=== PATIENT | female | born 1935 | race Hispanic/Latino ===

== ENCOUNTER 2016-12-06 12:29 | Inpatient (IN) | payer MEDICARE ==
[2016-12-06 13:41] LABS: BASO # 0.1 K/uL (0.0-0.2); BASO % 0.7 % (0.0-2.0); EOS % 0.2 % (0.0-4.0); HEMATOCRIT 32.8 % (34.0-47.0); LYMPH # 1.2 K/uL (1.0-4.3); LYMPH % 11.5 % (20.0-40.0); MEAN CORPUSCULAR HEMOGLOBIN 27.8 pg (27.0-31.0); MEAN CORPUSCULAR HGB CONC 33.3 g/dL (33.0-37.0); MEAN PLATELET VOLUME 8.4 fL (7.2-11.7); MONO % 9.3 % (0.0-10.0); RED CELL DISTRIBUTION WIDTH 15.3 % (11.5-14.5); WHITE BLOOD COUNT 10.3 K/uL (4.8-10.8)
[2016-12-06 13:44] LABS: MEAN CELL VOLUME 83.4 fL (81.0-99.0)
--- NOTE | 2016-12-06 13:47 | RAD ---
HISTORY: chest pain COMPARISON: Chest x-ray performed 02/28/14 TECHNIQUE: Chest, one view. FINDINGS: Examination limited by habitus. LUNGS: No focal consolidation. Please note that chest x-ray has limited sensitivity for the detection of pulmonary masses. PLEURA: No significant pleural effusion identified. No definite pneumothorax . CARDIOVASCULAR: Heart size appears top-normal. Atherosclerotic calcifications of the aorta. OSSEOUS STRUCTURES: Degenerative changes. VISUALIZED UPPER ABDOMEN: Unremarkable. OTHER FINDINGS: None. IMPRESSION: No acute findings. See above.
[2016-12-06 13:49] LABS: POTASSIUM 4.3 mmol/L (3.6-5.2)
[2016-12-06 13:50] LABS: INR 1.1
[2016-12-06 13:51] LABS: BILIRUBIN,TOTAL 0.7 mg/dL (0.2-1.3)
[2016-12-06] MEDS ORDERED: Sodium Chloride 0.9% 1,000 ML IV ONE ×2 (13:51→19:35)
[2016-12-06 13:52] LABS: CALCIUM 9.5 mg/dl (8.6-10.4); TOTAL PROTEIN 7.3 g/dL (6.3-8.3)
--- NOTE | 2016-12-06 13:52 | C.PDOC ---
History Of Present Illness 80 year old female presents to the ED by the request of Dr. Redman after having an appointment today revealing A-fib. Patient states she has not been feeling well fo the last week, feeling tired, weak, occasional lightheadedness, and too weak to ambulate. She has been unable to tolerate PO for four days due to nausea and vomiting. Patient was also hypotensive during the visit. She denies any chest pain, SOB, or dizziness currently in the ED. Time Seen by Provider: 12/06/16 13:07 Chief Complaint (Nursing): Palpitations History Per: Patient History/Exam Limitations: no limitations Onset/Duration Of Symptoms: Days (10 days) Current Symptoms Are (Timing): Still Present Associated Symptoms: denies: Chest Pain Quality Of Symptoms: Other (Atrial Fibrillation ) Recent travel outside of the [place]: No Additional History Per: Prior Records Past Medical History Reviewed: Historical Data, Nursing Documentation, Vital Signs Vital Signs: Last Vital Signs Temp 97.8 F 12/06/16 16:22 Pulse 83 12/06/16 16:22 Resp 18 12/06/16 16:22 BP 108/60 12/06/16 16:22 Pulse Ox 95 12/06/16 16:22 - Medical History PMH: Atrial Fibrillation (new onset ), HTN, Hypercholesterolemia Surgical History: Tonsillectomy Family History: States: Unknown Family Hx - Social History Hx Tobacco Use: No Hx Alcohol Use: No Hx Substance Use: No - Immunization History Hx Influenza Vaccination: Yes Review Of Systems Constitutional: Negative for: Fever, Chills Cardiovascular: Positive for: Light Headedness. Negative for: Chest Pain Respiratory: Negative for: Shortness of Breath Gastrointestinal: Positive for: Vomiting. Negative for: Abdominal Pain, Diarrhea Physical Exam - Physical Exam Appears: Non-toxic, No Acute Distress Skin: Warm, Dry Head: Atraumatic, Normacephalic Eye(s): bilateral: Normal Inspection, PERRL, EOMI Oral Mucosa: Moist Neck: Supple Chest: Symmetrical, No Deformity Cardiovascular: Rhythm Irregular Respiratory: Normal Breath Sounds, No Rhonchi, No Wheezing Gastrointestinal/Abdominal: Soft, No Tenderness, No Distention, No Guarding, No Rebound Extremity: Normal ROM, No Tenderness, Capillary Refill (good capillary refill, less than 2 seconds ), No Deformity, No Swelling Neurological/Psych: Oriented x3, Normal Speech, Normal Cranial Nerves, Normal Motor, Normal Sensation Gait: Steady ED Course And Treatment - Laboratory Results Result Diagrams: 12/06/16 13:38 12/06/16 13:38 Lab Interpretation: Abnormal ECG: Interpreted By Me, Viewed By Me ECG Rhythm: Atrial Fibrillation ECG Interpretation: Abnormal Rate From EC O2 Sat by Pulse Oximetry: 98 (room air ) Progress Note: EKG and UA were performed. Patient was given IV fluids. Medical Decision Making Medical Decision Making: Patient to be admitted to Dr Redman service for new onset A-fib. Patient is hemodynamically stable at this time. Disposition - Disposition Disposition: HOSPITALIZED Disposition Time: 14:30 Condition: STABLE - POA Present On Arrival: None - Clinical Impression Clinical Impression: New onset a-fib - Scribe Statement The provider has reviewed the documentation as recorded by the Scribe Johana Newberry All medical record entries made by the Scribe were at my direction and personally dictated by me. I have reviewed the chart and agree that the record accurately reflects my personal performance of the history, physical exam, medical decision making, and the department course for this patient. I have also personally directed, reviewed, and agree with the discharge instructions and disposition. Decision To Admit - Pt Status Changed To: Hospital Disposition Of: Inpatient - Admit Certification Admit to Inpatient:: After my assessment, the patient will require hospitalization for at least two midnights. This is because of the severity of symptoms shown, intensity of services needed, and/or the medical risk in this patient being treated as an outpatient. - InPatient: Physician Admission Certification: I certify that this patient requires 2 or more midnights of care for the following reason:: patient with new onset afib and feeling lightheaded and was hypotensive. Patient to be admitted for further workup in care - . Bed Request Type: Telemetry Admitting Physician: Kolby Redman Patient Diagnosis: New onset a-fib
[2016-12-06 14:05] LABS: TROPONIN I 0.073 ng/mL (0.00-0.120)
[2016-12-06] MEDS ORDERED: Sodium Chloride 0.9% 1,000 ML ONE (14:11)
[2016-12-06] MEDS: Sodium Chloride 0.9% 1,000 ML IV SCH (15:45)
[2016-12-06 17:19] LABS: THYROID STIMULATING HORMONE 0.57 mIU/L (0.46-4.68)
--- NOTE | 2016-12-06 17:42 | CP.PCM.CON ---
History of Present Illness - History of Present Illness History of Present Illness: Patientadmitted for New Onset a Fib Check ECHO, Carotids and TSH Past Patient History - Past Social History Smoking Status: Never Smoked - CARDIAC Hx Atrial Fibrillation: Yes (new onset ) Hx Hypercholesterolemia: Yes Hx Hypertension: Yes - PSYCHIATRIC Hx Substance Use: No - SURGICAL HISTORY Hx Tonsillectomy: Yes - ANESTHESIA Hx Anesthesia: Yes Hx Anesthesia Reactions: No Meds Allergies/Adverse Reactions: Allergies Allergy/AdvReac Type Severity Reaction Status Date / Time No Known Allergies Allergy Verified 04/15/13 10:16 - Medications Medications: Current Medications Heparin Sodium (Porcine) (Heparin) 5,000 units SC Q8 [facility] Sodium Chloride (Sodium Chloride 0.9%) 1,000 mls @ 100 mls/hr IV .Q10H ONE Stop: 12/06/16 23:50 Last Admin: 12/06/16 14:18 Dose: 100 mls/hr Sodium Chloride (Sodium Chloride 0.9%) 1,000 mls @ 100 mls/hr IV .Q10H [facility] Last Admin: 12/06/16 15:45 Dose: 100 mls/hr Results - Vital Signs Recent Vital Signs: Last Vital Signs Temp 98 F 12/06/16 16:48 Pulse 97 H 12/06/16 16:48 Resp 20 12/06/16 16:48 BP 113/69 12/06/16 16:48 Pulse Ox 95 12/06/16 16:48 - Labs Result Diagrams: 12/06/16 13:38 12/06/16 13:38 Labs: Laboratory Results - last 24 hr 12/06/16 16:30 Total Creatine Kinase 340 H CK-MB (Mass) 9.34 H Troponin I, Quant 0.0630 TSH 3rd Generation 0.57
--- NOTE | 2016-12-06 19:43 | CP.PCM.HP ---
History of Present Illness - History of Present Illness History of Present Illness: Chief complaint: General weakness. History present illness: 80-year-old female with history of hypertension high cholesterol osteoarthritis came to the emergency room from my office with increasing symptoms of weakness, not feeling well, bilateral flank pain, and leg pain, not eating well, nausea, and episodes of vomiting. Patient is having the symptoms for almost to 2 weeks, not taking anything by mouth much. But she is taking her blood pressure medications regularly. She's complaining of increasing weakness, tiredness, not able to walk. mild symptoms of shortness of breath also noted, associate with the some palpitation. Complaining of bilateral leg weakness, and no fever or chills noted. She is making urine, but the reduced amount at this time. PMH 79-year-old female with history of hypertension, hypercholesterolemia, osteoarthritis came to the office for a routine medical examination. FATHER is . He at the age of 80. It was a natural . He had cancer, prostate. MOTHER is . She at the age of 74. It was a natural . She had heart disease and stroke. Smoker nonalcoholic and she is giving herself, and she is able to manage her activities and she is using walker Uncontributory Review of systems: Patient denies any headache or visual symptoms, no chest pain or shortness of breath, minimal cough occasionally noted, postnasal drip occasionally present, denies any nausea vomiting, no other major systemic symptoms On examination: Temp Pulse Resp BP Pulse Ox 98 F 100 H 20 113/69 95 12/06/16 16:48 12/06/16 17:37 12/06/16 16:48 12/06/16 16:48 12/06/16 16:48 HEENT PERRLA, neck supple No thyromegaly was noted and no cervical adenopathy noted Chest bilateral good air entry, no wheezing or rales noted CVS regular heart sound, no murmur Abdomen soft and no organomegaly Extremeties bilateral swelling. 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 In the emergency room labs reviewed in Patient is having elevated BUN/creatinine, which is new currently. Also mild acidosis noted. Anion gap acidosis noted. CBC is nonspecific. But anemia cannot be ruled out. Urinalysis is currently pending. Patient also had a renal sonogram pending at this time. Assessment/recommendation: 79-year-old female with history of hypertension, hypercholesteremia, osteoarthritis came to the office for a routine visit immediatly sent to the emergency room. Currently having acute new-onset atrial fibrillation, and associated with rapid ventricular rate. She is also having severe acute renal insufficiency, unclear etiology. Dehydration possible. Currently urinalysis pending. We will get the CT scan of the abdomen. IV fluid IV hydration renal consultation, cardiology evaluation. DVT prophylaxis at this time. 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 The echo could examined pending. Discussed with family and will follow the patient spoke to pt son Present on Admission - Present on Admission Any Indicators Present on Admission: No History of DVT/PE: No History of Uncontrolled Diabetes: No Urinary Catheter: No Decubitus Ulcer Present: No Past Patient History - Past Medical History & Family History Past Medical History?: Yes - Past Social History Smoking Status: Never Smoked - CARDIAC Hx Atrial Fibrillation: Yes (new onset ) Hx Hypercholesterolemia: Yes Hx Hypertension: Yes - MUSCULOSKELETAL/RHEUMATOLOGICAL Hx Falls: No - PSYCHIATRIC Hx Substance Use: No - SURGICAL HISTORY Hx Tonsillectomy: Yes - ANESTHESIA Hx Anesthesia: Yes Hx Anesthesia Reactions: No Meds Allergies/Adverse Reactions: Allergies Allergy/AdvReac Type Severity Reaction Status Date / Time No Known Allergies Allergy Verified 04/15/13 10:16 Results - Vital Signs Recent Vital Signs: Last Vital Signs Temp 98 F 12/06/16 16:48 Pulse 100 H 12/06/16 17:37 Resp 20 12/06/16 16:48 BP 113/69 12/06/16 16:48 Pulse Ox 95 12/06/16 16:48 - Labs Result Diagrams: 12/06/16 13:38 12/06/16 13:38 Labs: Laboratory Results - last 24 hr 12/06/16 16:30 Total Creatine Kinase 340 H CK-MB (Mass) 9.34 H Troponin I, Quant 0.0630 TSH 3rd Generation 0.57
--- NOTE | 2016-12-06 20:20 | CARD ---
APPROVED REPORT EKG Measurement Heart [id number] <Conclusion> Atrial fibrillation Moderate voltage criteria for LVH, may be normal variant Nonspecific ST and T wave abnormality Abnormal ECG
--- NOTE | 2016-12-06 20:54 | US ---
EXAM: US Retroperitoneal Complete, Renal CLINICAL HISTORY: 80 years old, female; Abnormal findings; Abnormal lab test; Other: Acute renal insufficiency TECHNIQUE: Real-time ultrasound of the retroperitoneum (complete) with image documentation. EXAM DATE/TIME: 12/06/2016 4:59 PM COMPARISON: No relevant prior studies available. FINDINGS: Right kidney: Somewhat poorly seen due to gas. Grossly normal in appearance. Measures 9.7 cm in length. No evidence of hydronephrosis. Renal cortical echogenicity is within normal limits. No renal calculi are visible sonographically. Left kidney: Somewhat poorly seen due to gas. Contains a 1.6 cm anechoic lesion, in the midpole region, most compatible with a cyst. Otherwise grossly normal in appearance. Measures 10.2 cm in length. No evidence of hydronephrosis. Renal cortical echogenicity is within normal limits. No renal calculi are visible sonographically. Bladder: Incompletely distended, which limits evaluation. Grossly normal in appearance. IMPRESSION: No evidence of hydronephrosis or other acute sonographic abnormality of the kidneys. Somewhat limited exam due to bowel gas. Small left renal cyst. See above for remaining findings.
[2016-12-07 00:10] LABS: BASO % 0.5 % (0.0-2.0); EOS % 0.6 % (0.0-4.0); LYMPH % 13.4 % (20.0-40.0); MEAN CELL VOLUME 84.1 fL (81.0-99.0); MEAN CORPUSCULAR HEMOGLOBIN 27.5 pg (27.0-31.0); MEAN CORPUSCULAR HGB CONC 32.7 g/dL (33.0-37.0); MEAN PLATELET VOLUME 9.3 fL (7.2-11.7); MONO # 0.8 K/uL (0.0-0.8); MONO % 10.2 % (0.0-10.0); RED CELL DISTRIBUTION WIDTH 15.2 % (11.5-14.5); WHITE BLOOD COUNT 7.8 K/uL (4.8-10.8)
[2016-12-07 00:20] LABS: POTASSIUM 3.8 mmol/L (3.6-5.2)
[2016-12-07 00:22] LABS: ALB/GLOB RATIO 0.9 (1.0-2.1); BILIRUBIN,TOTAL 0.6 mg/dL (0.2-1.3); TOTAL PROTEIN 6.2 g/dL (6.3-8.3)
[2016-12-07 00:23] LABS: CALCIUM 8.6 mg/dl (8.6-10.4)
[2016-12-07] MEDS: Sodium Chloride 0.9% 1,000 ML IV SCH ×3 (06:01→22:10)
[2016-12-07 08:09] LABS: BASO % 0.6 % (0.0-2.0); EOS % 0.6 % (0.0-4.0); HEMATOCRIT 28.3 % (34.0-47.0); LYMPH # 0.7 K/uL (1.0-4.3); LYMPH % 11.4 % (20.0-40.0); MEAN CELL VOLUME 84.4 fL (81.0-99.0); MEAN CORPUSCULAR HEMOGLOBIN 27.5 pg (27.0-31.0); MEAN CORPUSCULAR HGB CONC 32.6 g/dL (33.0-37.0); MEAN PLATELET VOLUME 9.1 fL (7.2-11.7); MONO # 0.6 K/uL (0.0-0.8); MONO % 10.1 % (0.0-10.0); RED CELL DISTRIBUTION WIDTH 15.1 % (11.5-14.5); WHITE BLOOD COUNT 6.3 K/uL (4.8-10.8)
[2016-12-07 08:41] LABS: POTASSIUM 4.4 mmol/L (3.6-5.2)
[2016-12-07 08:43] LABS: ALB/GLOB RATIO 0.9 (1.0-2.1); BILIRUBIN,TOTAL 0.5 mg/dL (0.2-1.3); TOTAL PROTEIN 5.8 g/dL (6.3-8.3)
[2016-12-07 08:44] LABS: CALCIUM 8.4 mg/dl (8.6-10.4)
--- NOTE | 2016-12-07 10:48 | CT ---
PROCEDURE: CT Abdomen and Pelvis without intravenous contrast HISTORY: ARF stones disease COMPARISON: Renal ultrasound examination 12/06/2016. TECHNIQUE: Helical CT of the abdomen and pelvis is performed without oral or intravenous contrast.. Contrast Dose: None Radiation dose: Total exam DLP = 1159 mGy-cm. This CT exam was performed using one or more of the following dose reduction techniques: Automated exposure control, adjustment of the mA and/or kV according to patient size, and/or use of iterative reconstruction technique. FINDINGS: LOWER THORAX: Limited linear atelectasis or fibrosis seen at both lung bases. Mild cardiomegaly is identified as well. LIVER: There multiple small lucencies scattered in the left and right lobes of liver with a dominant lesions identified the left lobe laterally measuring 1.8 cm greatest dimension, 6 Hounsfield units. A 2nd lesions identified at the medial anterior right lobe liver measure 1.3 cm greatest dimension (2 Hounsfield units) with remainder under 1 cm size. Lack of contrast limits evaluation. GALLBLADDER AND BILE DUCTS: The gallbladder is distended somewhat but no pericholecystic fluid collection is seen and there is no radiodense cholelithiasis associated. PANCREAS: Unremarkable. No gross lesion or ductal dilatation. SPLEEN: Unremarkable. ADRENALS: Unremarkable. No mass. KIDNEYS AND URETERS: No definite obstructive uropathy or radiodense urolithiasis identified. Nonspecific streaky perinephric changes are identified bilaterally. VASCULATURE: Unremarkable. No aortic aneurysm. BOWEL: There is a bowel obstruction and there is moderate fecal loading throughout the colon. Moderate sigmoid diverticular changes are identified which also affect the mid to distal descending colon segment. No acute findings to suggest diverticulitis at this time though. The small bowel as this diffusely collapsed. APPENDIX: Unremarkable. Normal appendix. PERITONEUM: Unremarkable. No free fluid. No free air. LYMPH NODES: Unremarkable. No enlarged lymph nodes. BLADDER: Unremarkable. REPRODUCTIVE: Unremarkable. BONES: Note is made of a mild L1 compression fractures which is chronic, seen on prior distant chest radiograph 04/17/2013 (Lateral view). OTHER FINDINGS: None. IMPRESSION: 1. No definite obstructive uropathy is identified bilaterally or radiodense urolithiasis. Limited perinephric streaky changes are identified bilaterally which are of uncertain origin. 2. Left colonic diverticulosis without diverticulitis. 3. Multiple lucencies scattered throughout the liver which without contrast are poorly characterized. Due to their small size the vast majority indeterminate. 1.8 cm cyst in the left lobe laterally with a 1.3 cm cyst of the right lobe.
[2016-12-07 12:29] LABS: RBC URINE 9 /hpf (0-3); URINE BILIRUBIN NEGATIVE (NEGATIVE); URINE BLOOD 1+ (NEGATIVE); URINE COLOR Yellow (YELLOW); URINE GLUCOSE (UA) NORMAL (Normal); URINE KETONE NEGATIVE (NEGATIVE); URINE LEUKOCYTE ESTERASE TRACE Leu/uL (Negative); URINE PROTEIN NEGATIVE (NEGATIVE); URINE UROBILINOGEN NORMAL mg/dL (0.2-1.0); WBC URINE 4 /hpf (0-5)
--- NOTE | 2016-12-07 14:40 | CP.PCM.CON ---
History of Present Illness - History of Present Illness History of Present Illness: 80 yo female, consult for nonoliguric OMAR Pt with history of HTN. Has been feeling poorly for last few weeks with poor po intake Noted decreasing u/o In pmd's office, noted to be in new afib Pt receiving ivf in hospital with improvement in creatinine, u/o, and color of urine. Review of Systems - Constitutional Constitutional: Anorexia, Fatigue - EENT Eyes: absent: Blurred Vision, Change in Vision Nose/Mouth/Throat: absent: Epistaxis, Nasal Congestion - Cardiovascular Cardiovascular: Irregular Heart Rhythm. absent: Chest Pain at Rest, Dyspnea - Respiratory Respiratory: absent: Cough, Dyspnea - Gastrointestinal Gastrointestinal: absent: Abdominal Pain, Bloating - Genitourinary Genitourinary: Change in Urinary Stream. absent: Dysuria - Musculoskeletal Musculoskeletal: absent: Arthralgias, Back Pain - Neurological Neurological: absent: Abnormal Gait, Abnormal Hearing - Hematologic/Lymphatic Hematologic: absent: Easy Bleeding, Easy Bruising Past Patient History - Past Medical History & Family History Past Medical History?: Yes - Past Social History Smoking Status: Never Smoked - CARDIAC Hx Atrial Fibrillation: Yes (new onset ) Hx Hypercholesterolemia: Yes Hx Hypertension: Yes - MUSCULOSKELETAL/RHEUMATOLOGICAL Hx Falls: No - PSYCHIATRIC Hx Substance Use: No - SURGICAL HISTORY Hx Tonsillectomy: Yes - ANESTHESIA Hx Anesthesia: Yes Hx Anesthesia Reactions: No Meds Allergies/Adverse Reactions: Allergies Allergy/AdvReac Type Severity Reaction Status Date / Time No Known Allergies Allergy Verified 04/15/13 10:16 - Medications Medications: Current Medications Heparin Sodium (Porcine) (Heparin) 5,000 units SC Q8 [facility] Last Admin: 12/07/16 13:41 Dose: 5,000 units Sodium Chloride (Sodium Chloride 0.9%) 1,000 mls @ 100 mls/hr IV .Q10H [facility] Last Admin: 12/07/16 06:01 Dose: 100 mls/hr Pneumococcal Polyvalent Vaccine (Pneumovax 23 Vaccine) 0.5 ml IM .ONCE ONE Stop: 12/08/16 10:01 Physical Exam - Constitutional Appears: Non-toxic, No Acute Distress - Head Exam Head Exam: ATRAUMATIC, NORMAL INSPECTION - Eye Exam Eye Exam: EOMI Pupil Exam: NORMAL ACCOMODATION - ENT Exam ENT Exam: Mucous Membranes Moist, Normal Exam - Neck Exam Neck exam: Positive for: Full Rom. Negative for: Lymphadenopathy - Respiratory Exam Respiratory Exam: NORMAL BREATHING PATTERN. absent: Accessory Muscle Use - Cardiovascular Exam Cardiovascular Exam: Irregular Rhythm. absent: Rubs - GI/Abdominal Exam GI & Abdominal Exam: absent: Guarding, Rebound - Extremities Exam Extremities exam: Negative for: pedal edema - Neurological Exam Neurological exam: Alert, Oriented x3 - Psychiatric Exam Psychiatric exam: Normal Affect, Normal Mood Results - Vital Signs Recent Vital Signs: Last Vital Signs Temp 98.6 F 12/06/16 23:15 Pulse 89 12/07/16 04:52 Resp 20 12/06/16 23:15 BP 109/70 12/06/16 23:15 Pulse Ox 91 L 12/06/16 23:15 - Labs Result Diagrams: 12/07/16 08:03 12/07/16 08:03 Labs: Laboratory Results - last 24 hr 12/06/16 12/07/16 12/07/16 16:30 00:04 00:04 WBC 7.8 RBC 3.57 L Hgb 9.8 L Hct 30.0 L MCV 84.1 MCH 27.5 MCHC 32.7 L RDW 15.2 H Plt Count 214 MPV 9.3 Neut % (Auto) 75.3 H Lymph % (Auto) 13.4 L [place] % (Auto) 10.2 H Eos % (Auto) 0.6 Baso % (Auto) 0.5 Neut # 5.9 Lymph # 1.0 [place] # 0.8 Eos # 0.0 Baso # 0.0 Sodium 137 Potassium 3.8 Chloride 100 Carbon Dioxide 18 L Anion Gap 23 H BUN 93 H Creatinine 5.1 H Est GFR ( Amer) 10 Est GFR (Non-Af Amer) 8 Random Glucose 122 H Calcium 8.6 Total Bilirubin 0.6 AST 25 ALT 28 Alkaline Phosphatase 72 Total Creatine Kinase 340 H CK-MB (Mass) 9.34 H Troponin I, Quant 0.0630 Total Protein 6.2 L Albumin 3.0 L Globulin 3.3 Albumin/Globulin Ratio 0.9 L TSH 3rd Generation 0.57 Urine Color Urine Clarity Urine pH Ur Specific [place] Urine Protein Urine Glucose (UA) Urine Ketones Urine Blood Urine Nitrate Urine Bilirubin Urine Urobilinogen Ur Leukocyte Esterase Urine WBC (Auto) Urine RBC (Auto) Ur Squamous Epith Cells Hyaline Casts 12/07/16 12/07/16 12/07/16 08:03 08:03 12:09 WBC 6.3 RBC 3.35 L Hgb 9.2 L Hct 28.3 L MCV 84.4 MCH 27.5 MCHC 32.6 L RDW 15.1 H Plt Count 194 MPV 9.1 Neut % (Auto) 77.3 H Lymph % (Auto) 11.4 L [place] % (Auto) 10.1 H Eos % (Auto) 0.6 Baso % (Auto) 0.6 Neut # 4.9 Lymph # 0.7 L [place] # 0.6 Eos # 0.0 Baso # 0.0 Sodium 138 Potassium 4.4 Chloride 103 Carbon Dioxide 19 L Anion Gap 20 BUN 97 H Creatinine 4.5 H Est GFR ( Amer) 11 Est GFR (Non-Af Amer) 9 Random Glucose 96 Calcium 8.4 L Total Bilirubin 0.5 AST 22 ALT 29 Alkaline Phosphatase 67 Total Creatine Kinase 250 H CK-MB (Mass) 6.37 H Troponin I, Quant 0.0590 Total Protein 5.8 L Albumin 2.7 L Globulin 3.1 Albumin/Globulin Ratio 0.9 L TSH 3rd Generation Urine Color Yellow Urine Clarity Hazy Urine pH 5.0 Ur Specific [place] 1.014 Urine Protein Negative Urine Glucose (UA) Normal Urine Ketones Negative Urine Blood 1+ H Urine Nitrate Negative Urine Bilirubin Negative Urine Urobilinogen Normal Ur Leukocyte Esterase Trace Urine WBC (Auto) 4 Urine RBC (Auto) 9 H Ur Squamous Epith Cells 2 Hyaline Casts 11-20 H Assessment & Plan - Assessment and Plan (Free Text) Assessment: omar likely prerenal, improving with ivf new afib poor po intake, ? due to cardiac causes, w/u initiated renal w/u pending normal renal sonogram u/a and urine lytes pending
[2016-12-07 17:03] LABS: POTASSIUM 4.6 mmol/L (3.6-5.2)
[2016-12-07 17:05] LABS: ALB/GLOB RATIO 0.9 (1.0-2.1); BILIRUBIN,TOTAL 0.7 mg/dL (0.2-1.3); TOTAL PROTEIN 6.3 g/dL (6.3-8.3)
[2016-12-07 17:06] LABS: CALCIUM 8.8 mg/dl (8.6-10.4)
--- NOTE | 2016-12-07 19:44 | CARD ---
APPROVED REPORT EXAM: Two-dimensional and M-mode echocardiogram with Doppler and color Doppler. Other Information Quality : FairRhythm : INDICATION Dyspnea Palpitations RISK FACTORS Hypertension Hyperlipidemia 2D DIMENSIONS LVOT Diameter2.0 (1.8-2.4cm) M-Mode DIMENSIONS RVDd1.99 (2.1-3.2cm)Left Atrium (MM)4.02 (2.5-4.0cm) IVSd1.00 (0.7-1.1cm)Aortic Root2.81 (2.2-3.7cm) LVDd4.46 (4.0-5.6cm)Aortic Cusp Exc.1.84 (1.5-2.0cm) PWd1.25 (0.7-1.1cm)FS (%) 37 % LVDs2.80 (2.0-3.8cm)LVEF (%)67 (>50%) Aortic Valve AoV Peak Gaymjwda427.7cm/sAoV VTI25.3cmAO Peak GR.13mmHg LVOT Peak Wmsabgfb153.8cm/Magdiel Mean GR.7mmHgAVA (VMAX)2.75cm2 Mitral Valve MV E Kbatywrq236.0cm/sMV A Kbmqglqc26.4cm/sE/A ratio1.7 TDI E/Lateral E'0.0E/Medial E'0.0 Pulmonary Valve PV Peak Rmzfpjnd031.5cm/sPV Peak Grad.8mmHg Tricuspid Valve TR Peak Ypnovjse070hh/sTR Peak Gr.[id number] LEFT VENTRICLE The left ventricle is normal size. There is borderline concentric left ventricular hypertrophy. Left ventricle systolic function is normal. The Ejection Fraction is 65-70%. There is normal LV segmental wall motion. The left ventricular diastolic function is normal. There is no ventricular septal defect visualized. RIGHT VENTRICLE The right ventricle is normal size. The right ventricular systolic function is normal. ATRIA The left atrium is mildly dilated. The right atrium size is normal. AORTIC VALVE The aortic valve is mildly sclerotic. The aortic valve is tri-cuspid. No aortic regurgitation is present. There is no aortic valvular stenosis. MITRAL VALVE Mitral annular calcification is mild. There is no evidence of mitral valve prolapse. There is no mitral valve regurgitation noted. TRICUSPID VALVE The tricuspid valve is normal in structure. There is trace tricuspid regurgitation. There is no pulmonary hypertension. PULMONIC VALVE The pulmonic valve is not well visualized. There is trace pulmonic valvular regurgitation. GREAT VESSELS The IVC is normal in size and collapses >50% with inspiration. PERICARDIAL EFFUSION There is no pericardial effusion. <Conclusion> There is borderline concentric left ventricular hypertrophy. Left ventricle systolic function is normal. The Ejection Fraction is 65-70%. The left ventricular diastolic function is normal.
--- NOTE | 2016-12-07 20:13 | CP.PCM.PN ---
Subjective - Date & Time of Evaluation Date of Evaluation: 12/07/16 Time of Evaluation: 20:13 - Subjective Subjective: Patient today is feeling much better in her symptoms. But she is feeling extremely weak and unable to stand up. Today she tried to get up, at the time she is feeling much extremely weak and unable to walk. Leg weakness noted. Usually she walks with a walker. She was having significant the spinal problems as well as bilateral knee problems. She is making much urine today. She denies any abdominal pain, eating well. But poor appetite still noted On examination: Vital signs stable. Chest good air entry bilaterally regular heart sound nontender abdomen no pedal edema Patient still having atrial fibrillation and arrhythmias on telemetry. Spoke to the service tester. CT scan of the abdomen, and sonogram of the abdomen negative. Echocardiogram normal EF noted. Assessment and recommendation: 80-year-old female with history of hypertension and hypercholesteremia osteoarthritis hypothyroidism admitted with the atrial fibrillation, hypertension, acute renal failure, most likely prerenal unclear etiology. Improving at this time. Patient is having significant decubiti at this time, will need a physical exercise on therapy. We will follow the patient Objective - Vital Signs/Intake and Output Vital Signs (last 24 hours): Temp Pulse Resp BP Pulse Ox 98.8 F 72 20 128/70 97 12/07/16 15:56 12/07/16 17:54 12/07/16 15:56 12/07/16 15:56 12/07/16 17:54 Intake and Output: 12/07/16 12/08/16 18:59 06:59 Intake Total 2200 Output Total 500 Balance 1700 - Medications Medications: Current Medications Heparin Sodium (Porcine) (Heparin) 5,000 units SC Q8 [facility] Last Admin: 12/07/16 13:41 Dose: 5,000 units Sodium Chloride (Sodium Chloride 0.9%) 1,000 mls @ 100 mls/hr IV .Q10H [facility] Last Admin: 12/07/16 18:55 Dose: 100 mls/hr Pneumococcal Polyvalent Vaccine (Pneumovax 23 Vaccine) 0.5 ml IM .ONCE ONE Stop: 12/08/16 10:01 - Labs Labs: 12/07/16 08:03 12/07/16 16:45 PT 12.3 SECONDS (9.7-12.2) H 12/06/16 13:38 INR 1.1 12/06/16 13:38 APTT 27 SECONDS (21-34) 12/06/16 13:38
--- NOTE | 2016-12-07 23:11 | CP.PCM.PN ---
Subjective - Date & Time of Evaluation Date of Evaluation: 12/07/16 Time of Evaluation: 15:40 - Subjective Subjective: Patient seen and evaluated No cardiac symptoms Creatinine getting better If no urological procedures planned will initiate Eliquis 2.5 mg po bid Objective - Vital Signs/Intake and Output Vital Signs (last 24 hours): Temp Pulse Resp BP Pulse Ox 98.8 F 72 20 128/70 97 12/07/16 15:56 12/07/16 17:54 12/07/16 15:56 12/07/16 15:56 12/07/16 17:54 Intake and Output: 12/07/16 12/08/16 18:59 06:59 Intake Total 2200 800 Output Total 500 250 Balance 1700 550 - Medications Medications: Current Medications Heparin Sodium (Porcine) (Heparin) 5,000 units SC Q8 [facility] Last Admin: 12/07/16 22:04 Dose: 5,000 units Sodium Chloride (Sodium Chloride 0.9%) 1,000 mls @ 100 mls/hr IV .Q10H [facility] Last Admin: 12/07/16 22:10 Dose: Not Given Pneumococcal Polyvalent Vaccine (Pneumovax 23 Vaccine) 0.5 ml IM .ONCE ONE Stop: 12/08/16 10:01 - Labs Labs: 12/07/16 08:03 12/07/16 16:45 PT 12.3 SECONDS (9.7-12.2) H 12/06/16 13:38 INR 1.1 12/06/16 13:38 APTT 27 SECONDS (21-34) 12/06/16 13:38
[2016-12-08] MEDS: Sodium Chloride 0.9% 1,000 ML IV SCH ×2 (04:35→13:24)
[2016-12-08 07:20] LABS: BASO % 0.5 % (0.0-2.0); EOS # 0.1 K/uL (0.0-0.7); HEMATOCRIT 27.4 % (34.0-47.0); LYMPH # 0.8 K/uL (1.0-4.3); LYMPH % 14.2 % (20.0-40.0); MEAN CELL VOLUME 83.8 fL (81.0-99.0); MEAN CORPUSCULAR HEMOGLOBIN 27.6 pg (27.0-31.0); MEAN PLATELET VOLUME 8.9 fL (7.2-11.7); MONO # 0.6 K/uL (0.0-0.8); MONO % 10.9 % (0.0-10.0); RED CELL DISTRIBUTION WIDTH 14.9 % (11.5-14.5); WHITE BLOOD COUNT 5.5 K/uL (4.8-10.8)
[2016-12-08 07:25] LABS: ALB/GLOB RATIO 0.9 (1.0-2.1); BILIRUBIN,TOTAL 0.3 mg/dL (0.2-1.3); CALCIUM 8.3 mg/dl (8.6-10.4); POTASSIUM 3.8 mmol/L (3.6-5.2); TOTAL PROTEIN 5.3 g/dL (6.3-8.3)
[2016-12-08] MEDS ORDERED: Pneumococcal 23-Valent Vaccine IM ONE (10:00)
--- NOTE | 2016-12-08 11:16 | CP.PCM.PN ---
Subjective - Date & Time of Evaluation Date of Evaluation: 12/08/16 Time of Evaluation: 11:15 - Subjective Subjective: seen and examined labs noted feels weak, had physical therapy this am no n/v/d/sob/cp/headache/rash Objective - Vital Signs/Intake and Output Vital Signs (last 24 hours): Temp Pulse Resp BP Pulse Ox 98.7 F 95 H 18 122/78 95 12/08/16 07:30 12/08/16 09:00 12/08/16 07:30 12/08/16 07:30 12/08/16 07:30 Intake and Output: 12/08/16 12/08/16 06:59 18:59 Intake Total 800 Output Total 250 Balance 550 - Medications Medications: Current Medications Heparin Sodium (Porcine) (Heparin) 5,000 units SC Q8 [facility] Last Admin: 12/08/16 05:24 Dose: 5,000 units Sodium Chloride (Sodium Chloride 0.9%) 1,000 mls @ 100 mls/hr IV .Q10H [facility] Last Admin: 12/08/16 04:35 Dose: 100 mls/hr - Labs Labs: 12/08/16 07:07 12/08/16 07:07 PT 12.3 SECONDS (9.7-12.2) H 12/06/16 13:38 INR 1.1 12/06/16 13:38 APTT 27 SECONDS (21-34) 12/06/16 13:38 - Constitutional Appears: Non-toxic, No Acute Distress - Head Exam Head Exam: NORMAL INSPECTION - Eye Exam Eye Exam: Normal appearance - ENT Exam ENT Exam: Mucous Membranes Moist, Normal Exam - Neck Exam Neck Exam: Normal Inspection - Respiratory Exam Respiratory Exam: Decreased Breath Sounds, Clear to Ausculation Bilateral, NORMAL BREATHING PATTERN - Cardiovascular Exam Cardiovascular Exam: Irregular Rhythm - GI/Abdominal Exam GI & Abdominal Exam: Distended, Soft, Normal Bowel Sounds - Extremities Exam Extremities Exam: Normal Inspection Assessment and Plan (1) Acute renal failure Status: Acute (2) New onset a-fib Status: Acute - Assessment and Plan (Free Text) Assessment: # ok improving. renal us unremarkable # volume depletion # new a fib plan: maintain iv fluids cardiac management
--- NOTE | 2016-12-08 15:26 | VASCLAB ---
PROCEDURE: HISTORY: Dizziness COMPARISON: None available. TECHNIQUE: Grayscale and duplex Doppler evaluation of the cervical carotid and vertebral arteries were performed. The common carotid, carotid bifurcations and cervical Internal Carotid Artery (ICA) and proximal External Carotid Artery (ECA) were evaluated. The vertebral arteries were evaluated for gross patency and flow direction. Report prepared by Marlon Langley, BS, RVT FINDINGS: RIGHT CAROTID ARTERIES: 1. Common Carotid Artery: No significant focal plaque formation of the right common carotid artery. Maximum Peak Systolic velocity: 76 cm/sec: End-diastolic velocity 21 cm/sec. 2. Carotid Bifurcation: Heterogeneous plaque formation. Maximum Peak Systolic velocity: 51 cm/sec: End-diastolic velocity 17 cm/sec. 3. Internal Carotid Artery: Mild heterogeneous plaque. 3.1. Proximal Segment: Peak systolic velocity 68 cm/sec: End-diastolic velocity 20 cm/sec - % stenosis 0-15% 3.2. Middle Segment: Peak systolic velocity 92 cm/sec: End-diastolic velocity 31 cm/sec - % stenosis 0-15% 3.3. Distal Segment: Peak systolic velocity 56 cm/sec: End-diastolic velocity 19 cm/sec - % stenosis 0-15% 4. External Carotid Artery: Heterogeneous plaque formation. Peak systolic velocity 88 cm/sec 5. ICA/CCA Ratio: 1.2 LEFT CAROTID ARTERIES: 1. Common Carotid Artery: Mild multifocal calcific plaque formation of the left common carotid artery. Maximum Peak Systolic velocity: 101 cm/sec: End-diastolic velocity 20 cm/sec. 2. Carotid Bifurcation: Heterogeneous plaque formation. Maximum Peak Systolic velocity: 88 cm/sec: End-diastolic velocity 20 cm/sec. 3. Internal Carotid Artery: Mild heterogeneous plaque. 3.1. Proximal Segment: Peak systolic velocity 68 cm/sec: End-diastolic velocity 19 cm/sec - % stenosis 0-15% 3.2. Middle Segment: Peak systolic velocity 47 cm/sec: End-diastolic velocity 16 cm/sec - % stenosis 0-15% 3.3. Distal Segment: Peak systolic velocity 78 cm/sec: End-diastolic velocity 19 cm/sec - % stenosis 0-15% 4. External Carotid Artery: Heterogeneous plaque formation. Peak systolic velocity 93 cm/sec 5. ICA/CCA Ratio: 0.9 VERTEBRAL ARTERIES: 1. Right Vertebral Artery: The right vertebral artery flow direction is antegrade. 2. Left Vertebral Artery: The left vertebral artery flow direction is antegrade. OTHER FINDINGS: 1. Right Brachial Blood pressure: 122 mmHg. 2. Left Brachial Blood pressure: 118 mmHg. IMPRESSION: RIGHT: Duplex scan does not suggest hemodynamically significant stenosis of the right extracranial carotid arteries. LEFT: Duplex scan does not suggest hemodynamically significant stenosis of the left extracranial carotid arteries.
--- NOTE | 2016-12-08 19:24 | CP.PCM.PN ---
Subjective - Date & Time of Evaluation Date of Evaluation: 12/08/16 Time of Evaluation: 19:24 - Subjective Subjective: Patient today participate in physical therapy, she was able to sit down, but not able to stand up but weakness noted. She is eating okay, no abdominal pain, no chest pain or shortness of breath or dizziness. Still receiving IV fluid. Patient is currently increasingly using urination Chest bilateral good air entry regular heart sound nontender abdomen no pedal edema Labs reviewed Improvement in the creatinine level noted Mildly leg swelling in the right leg noted No shortness of breath Assessment and recommendation: 80-year-old female with history of new onset atrial fibrillation hypertension osteoarthritis hypothyroidism. Patient is on heparin subcutaneous. We will get venous Doppler in the legs. VQ scan. If it is negative we'll discuss with the dog warden regarding the anticoagulation. Repeat labs in the morning and will follow the patient Objective - Vital Signs/Intake and Output Vital Signs (last 24 hours): Temp Pulse Resp BP Pulse Ox 98.1 F 96 H 20 127/74 97 12/08/16 15:00 12/08/16 15:00 12/08/16 15:00 12/08/16 15:00 12/08/16 15:00 - Medications Medications: Current Medications Heparin Sodium (Porcine) (Heparin) 5,000 units SC Q8 [facility] Last Admin: 12/08/16 13:12 Dose: 5,000 units Sodium Chloride (Sodium Chloride 0.9%) 1,000 mls @ 70 mls/hr IV .[id number] [facility] Last Admin: 12/08/16 13:24 Dose: 70 mls/hr - Labs Labs: 12/08/16 07:07 12/08/16 07:07 PT 12.3 SECONDS (9.7-12.2) H 12/06/16 13:38 INR 1.1 12/06/16 13:38 APTT 27 SECONDS (21-34) 12/06/16 13:38
--- NOTE | 2016-12-08 22:03 | CP.PCM.PN ---
Subjective - Date & Time of Evaluation Date of Evaluation: 12/08/16 Time of Evaluation: 09:50 - Subjective Subjective: Patient seen and evaluated Creatinine getting better will Start anticoagulation once Creatinine reaches base line Objective - Vital Signs/Intake and Output Vital Signs (last 24 hours): Temp Pulse Resp BP Pulse Ox 98.1 F 96 H 20 127/74 97 12/08/16 15:00 12/08/16 15:00 12/08/16 15:00 12/08/16 15:00 12/08/16 15:00 - Medications Medications: Current Medications Heparin Sodium (Porcine) (Heparin) 5,000 units SC Q8 [facility] Last Admin: 12/08/16 21:26 Dose: 5,000 units Sodium Chloride (Sodium Chloride 0.9%) 1,000 mls @ 70 mls/hr IV .[id number] [facility] Last Admin: 12/08/16 13:24 Dose: 70 mls/hr - Labs Labs: 12/08/16 07:07 12/08/16 07:07 PT 12.3 SECONDS (9.7-12.2) H 12/06/16 13:38 INR 1.1 12/06/16 13:38 APTT 27 SECONDS (21-34) 12/06/16 13:38
[2016-12-09] MEDS: Sodium Chloride 0.9% 1,000 ML IV SCH ×3 (01:03→15:15)
[2016-12-09 02:59] LABS: TOTAL PROTEIN, SERUM 5.8 g/dL (6.1-8.1)
[2016-12-09 06:48] LABS: BASO % 0.7 % (0.0-2.0); EOS # 0.2 K/uL (0.0-0.7); EOS % 2.9 % (0.0-4.0); HEMATOCRIT 28.9 % (34.0-47.0); LYMPH # 0.9 K/uL (1.0-4.3); LYMPH % 14.9 % (20.0-40.0); MEAN CELL VOLUME 84.4 fL (81.0-99.0); MEAN CORPUSCULAR HEMOGLOBIN 27.7 pg (27.0-31.0); MEAN CORPUSCULAR HGB CONC 32.9 g/dL (33.0-37.0); MEAN PLATELET VOLUME 8.6 fL (7.2-11.7); MONO # 0.7 K/uL (0.0-0.8); MONO % 11.3 % (0.0-10.0)
[2016-12-09 07:00] LABS: BILIRUBIN,TOTAL 0.3 mg/dL (0.2-1.3); CALCIUM 8.8 mg/dl (8.6-10.4); POTASSIUM 4.6 mmol/L (3.6-5.2); TOTAL PROTEIN 5.5 g/dL (6.3-8.3)
--- NOTE | 2016-12-09 11:58 | RAD ---
HISTORY: r/o PE with vq scan COMPARISON: 12/06/2016 TECHNIQUE: Chest PA and lateral FINDINGS: LUNGS: No active pulmonary disease. PLEURA: No significant pleural effusion identified. No pneumothorax apparent. CARDIOVASCULAR: Mild congestive change. Normal heart size. OSSEOUS STRUCTURES: No significant abnormalities. VISUALIZED UPPER ABDOMEN: Normal. OTHER FINDINGS: None. IMPRESSION: No acute infiltrate. Mild congestive change noted.
--- NOTE | 2016-12-09 12:41 | NM ---
COMPARISON: Chest x-ray 12/09/2016 TECHNIQUE: 8.9 mCi technetium 99-m Xe-133 Gas. Anterior and posterior views obtained. 3.5 mCI technetium 99-m MAA administered intravenously. Views obtained in multiple projections. FINDINGS: VENTILATION COMPONENT: There are no ventilatory defect seen. PERFUSION COMPONENT: There is a moderate to large mismatched defect in the posterior left lower lobe. There are no other perfusion defects appreciated. IMPRESSION: Intermediate probability ventilation perfusion scan utilizing modified PIOPED criteria. .
--- NOTE | 2016-12-09 17:21 | CP.PCM.PN ---
Subjective - Date & Time of Evaluation Date of Evaluation: 12/09/16 Time of Evaluation: 16:40 - Subjective Subjective: weak pain in legs no sob no urinary problems no chest pain chronic dyspnea appetite good no headache no rash no fever + arthralgias no insomnia no constipation no visual abnormalities Objective - Vital Signs/Intake and Output Vital Signs (last 24 hours): Temp Pulse Resp BP Pulse Ox 98.3 F 101 H 18 143/80 97 12/09/16 16:00 12/09/16 16:00 12/09/16 16:00 12/09/16 16:00 12/09/16 16:00 Intake and Output: 12/09/16 12/09/16 06:59 18:59 Intake Total 860 Output Total 500 Balance 360 - Medications Medications: Current Medications Heparin Sodium (Porcine) (Heparin) 5,000 units SC Q8 [facility] Last Admin: 12/09/16 13:28 Dose: 5,000 units Sodium Chloride (Sodium Chloride 0.9%) 1,000 mls @ 70 mls/hr IV .[id number] [facility] Last Admin: 12/09/16 15:15 Dose: Not Given - Labs Labs: 12/09/16 06:36 12/09/16 06:36 PT 12.3 SECONDS (9.7-12.2) H 12/06/16 13:38 INR 1.1 12/06/16 13:38 APTT 27 SECONDS (21-34) 12/06/16 13:38 - Constitutional Appears: No Acute Distress, In Acute Distress, Confused - Head Exam Head Exam: ATRAUMATIC, NORMAL INSPECTION - Eye Exam Eye Exam: EOMI, Normal appearance - ENT Exam ENT Exam: Mucous Membranes Moist - Neck Exam Neck Exam: Full ROM. absent: Lymphadenopathy - Respiratory Exam Respiratory Exam: Clear to Ausculation Bilateral - Cardiovascular Exam Cardiovascular Exam: REGULAR RHYTHM. absent: Rubs - GI/Abdominal Exam GI & Abdominal Exam: Soft, Normal Bowel Sounds - Extremities Exam Extremities Exam: Pedal Edema - Neurological Exam Neurological Exam: Alert, Oriented x3 Assessment and Plan - Assessment and Plan (Free Text) Assessment: ok resolving new afib leg pain, arthritis continue ivf trend labs improving
--- NOTE | 2016-12-09 22:03 | CP.PCM.PN ---
Subjective - Date & Time of Evaluation Date of Evaluation: 12/09/16 Time of Evaluation: 22:01 - Subjective Subjective: Patient is feeling much better, she is able to stand up, but she is feeling extremely weak on the right leg. Urine output is better, she has no abdominal pain or vomiting. Eating better Labs reviewed Vital signs stable. Vital signs reviewed No neck vein distention noted Chest good air entry bilaterally, no wheezing or rales noted CVS regular heart sound, no murmur noted Abdomen soft, nontender. Extremities no pedal edema [employer] alert awake oriented 3, no functional neurological deficit Venous Dopplers is negative. VQ scan is showing intermediate probability. Assessment and a condition: 80-year-old female with history of osteoarthritis hypertension now admitted with acute renal insufficiency dehydration. Resources unclear. Atrial fibrillation new-onset. And also intermediate probability of VQ scan. Patient showed continued anticoagulation given the both problems at this time. I spoke to the environmental issues instructor will start the patient had at least 2.5 mg twice a day, I also spoke to the patient and the patient's the family. Patient will need physical therapy. Subacute rehabilitation probably ideal. Will continue the IV fluid to monitor the CMP in morning Objective - Vital Signs/Intake and Output Vital Signs (last 24 hours): Temp Pulse Resp BP Pulse Ox 98.3 F 101 H 18 143/80 97 12/09/16 16:00 12/09/16 18:00 12/09/16 16:00 12/09/16 16:00 12/09/16 16:00 Intake and Output: 12/09/16 12/10/16 18:59 06:59 Intake Total 560 Output Total 300 Balance 260 - Medications Medications: Current Medications Apixaban (Eliquis) 2.5 mg PO BID [facility] Sodium Chloride (Sodium Chloride 0.9%) 1,000 mls @ 70 mls/hr IV .[id number] [facility] Last Admin: 12/09/16 15:15 Dose: Not Given - Labs Labs: 12/09/16 06:36 12/09/16 06:36 PT 12.3 SECONDS (9.7-12.2) H 12/06/16 13:38 INR 1.1 12/06/16 13:38 APTT 27 SECONDS (21-34) 12/06/16 13:38
--- NOTE | 2016-12-10 10:43 | CP.PCM.PN ---
Subjective - Date & Time of Evaluation Date of Evaluation: 12/09/16 Time of Evaluation: 18:20 - Subjective Subjective: Patient seen and evaluated Denies chest pain and dyspnea A Fib/Intermediate probability VQ scan Anticoagulation strategy after d/w PMD and family Creatinine improving Objective - Vital Signs/Intake and Output Vital Signs (last 24 hours): Temp Pulse Resp BP Pulse Ox 97.8 F 98 H 20 106/66 97 12/10/16 08:00 12/10/16 08:00 12/10/16 08:00 12/10/16 08:00 12/10/16 08:00 Intake and Output: 12/10/16 12/10/16 06:59 18:59 Output Total 450 Balance -450 - Medications Medications: Current Medications Apixaban (Eliquis) 2.5 mg PO BID [facility] Last Admin: 12/10/16 09:21 Dose: 2.5 mg Sodium Chloride (Sodium Chloride 0.9%) 1,000 mls @ 70 mls/hr IV .[id number] [facility] Last Admin: 12/09/16 15:15 Dose: Not Given - Labs Labs: 12/09/16 06:36 12/09/16 06:36 PT 12.3 SECONDS (9.7-12.2) H 12/06/16 13:38 INR 1.1 12/06/16 13:38 APTT 27 SECONDS (21-34) 12/06/16 13:38
--- NOTE | 2016-12-10 12:12 | CP.PCM.PN ---
Subjective - Date & Time of Evaluation Date of Evaluation: 12/10/16 Time of Evaluation: 12:10 - Subjective Subjective: Notes reviewed Comfortable in bed Lower ext pain improved No cp or palp Tolerating diet No overnight events ROS: No fever or chills, no martin or vision change, + muscle and joint pain mainly in lower ext, no cp or palp, no sob or cough, no n/v/d, no hematuria or dysuria , No rash or dry skin, No depression or confusion, no new focal weakness or change is sensation Objective - Vital Signs/Intake and Output Vital Signs (last 24 hours): Temp Pulse Resp BP Pulse Ox 97.8 F 98 H 20 106/66 97 12/10/16 08:00 12/10/16 08:00 12/10/16 08:00 12/10/16 08:00 12/10/16 08:00 Intake and Output: 12/10/16 12/10/16 06:59 18:59 Output Total 450 Balance -450 - Medications Medications: Current Medications Apixaban (Eliquis) 2.5 mg PO BID [facility] Last Admin: 12/10/16 09:21 Dose: 2.5 mg Sodium Chloride (Sodium Chloride 0.9%) 1,000 mls @ 70 mls/hr IV .[id number] [facility] Last Admin: 12/09/16 15:15 Dose: Not Given - Labs Labs: 12/09/16 06:36 12/09/16 06:36 PT 12.3 SECONDS (9.7-12.2) H 12/06/16 13:38 INR 1.1 12/06/16 13:38 APTT 27 SECONDS (21-34) 12/06/16 13:38 - Constitutional Appears: Well, Non-toxic - Head Exam Head Exam: ATRAUMATIC, NORMAL INSPECTION - Eye Exam Eye Exam: EOMI, Normal appearance - ENT Exam ENT Exam: Mucous Membranes Moist, Normal Oropharynx - Neck Exam Neck Exam: absent: Lymphadenopathy, Thyromegaly - Respiratory Exam Respiratory Exam: Clear to Ausculation Bilateral, NORMAL BREATHING PATTERN. absent: Rales, Rhonchi - Cardiovascular Exam Cardiovascular Exam: +S1, +S2. absent: Rubs - GI/Abdominal Exam GI & Abdominal Exam: Soft, Normal Bowel Sounds - Extremities Exam Extremities Exam: Pedal Edema. absent: Tenderness - Neurological Exam Neurological Exam: Alert, Awake - Skin Skin Exam: Dry, Intact Assessment and Plan - Assessment and Plan (Free Text) Assessment: Acute kidney injury ?CKD AFIB HTN leg pain, arthritis Renal function stable Electrolytes acceptable Bp stable Anticoagulation considerations noted Continue current care Daily labs
[2016-12-10] MEDS: Sodium Chloride 0.9% 1,000 ML IV SCH (15:48)
--- NOTE | 2016-12-10 17:39 | CP.PCM.PN ---
Subjective - Date & Time of Evaluation Date of Evaluation: 12/10/16 Time of Evaluation: 17:37 - Subjective Subjective: Patient today feeling much better. Still having some weakness. Patient is able to take a 3 steps today. No chest pain. But her eating is not that great. Mild tachycardia noted, also the blood pressure is also slightly on the high side. Will closely monitor that. On examination: Chest good air entry regular heart sound nontender abdomen edema negative Currently on IV fluids 70 mL per hour Awaiting for chemistry today Patient is on elequis. We'll closely monitor the CBC. Continue the current treatment and will follow the patient. Patient will need physical therapy, possible subacute rehabilitation Objective - Vital Signs/Intake and Output Vital Signs (last 24 hours): Temp Pulse Resp BP Pulse Ox 98 F 104 H 20 143/79 97 12/10/16 16:00 12/10/16 16:00 12/10/16 16:00 12/10/16 16:00 12/10/16 16:00 Intake and Output: 12/10/16 12/10/16 06:59 18:59 Intake Total 560 Output Total 450 Balance -450 560 - Medications Medications: Current Medications Apixaban (Eliquis) 2.5 mg PO BID [facility] Last Admin: 12/10/16 09:21 Dose: 2.5 mg Sodium Chloride (Sodium Chloride 0.9%) 1,000 mls @ 70 mls/hr IV .[id number] [facility] Last Admin: 12/10/16 15:48 Dose: 70 mls/hr - Labs Labs: 12/09/16 06:36 12/09/16 06:36 PT 12.3 SECONDS (9.7-12.2) H 12/06/16 13:38 INR 1.1 12/06/16 13:38 APTT 27 SECONDS (21-34) 12/06/16 13:38
[2016-12-10 20:05] LABS: POTASSIUM 4.3 mmol/L (3.6-5.2)
[2016-12-10 20:08] LABS: ALB/GLOB RATIO 0.8 (1.0-2.1); BILIRUBIN,TOTAL 0.4 mg/dL (0.2-1.3); TOTAL PROTEIN 5.7 g/dL (6.3-8.3)
[2016-12-10 20:09] LABS: BASO % 0.5 % (0.0-2.0); CALCIUM 8.8 mg/dl (8.6-10.4); EOS # 0.1 K/uL (0.0-0.7); EOS % 0.8 % (0.0-4.0); HEMATOCRIT 28.3 % (34.0-47.0); LYMPH % 11.7 % (20.0-40.0); MEAN CELL VOLUME 84.3 fL (81.0-99.0); MEAN CORPUSCULAR HEMOGLOBIN 27.3 pg (27.0-31.0); MEAN CORPUSCULAR HGB CONC 32.4 g/dL (33.0-37.0); MEAN PLATELET VOLUME 8.5 fL (7.2-11.7); MONO # 0.9 K/uL (0.0-0.8); MONO % 10.4 % (0.0-10.0); RED CELL DISTRIBUTION WIDTH 15.1 % (11.5-14.5); WHITE BLOOD COUNT 8.5 K/uL (4.8-10.8)
--- NOTE | 2016-12-10 21:58 | CP.PCM.PN ---
Subjective - Date & Time of Evaluation Date of Evaluation: 12/10/16 Time of Evaluation: 18:20 - Subjective Subjective: Patient seen and evaluated C/O Back pain Kidney function improving On eliquis for a Fib No bleeding complaints Objective - Vital Signs/Intake and Output Vital Signs (last 24 hours): Temp Pulse Resp BP Pulse Ox 98 F 97 H 20 143/79 97 12/10/16 16:00 12/10/16 18:00 12/10/16 16:00 12/10/16 16:00 12/10/16 16:00 Intake and Output: 12/10/16 12/11/16 18:59 06:59 Intake Total 560 Balance 560 - Medications Medications: Current Medications Apixaban (Eliquis) 2.5 mg PO BID [facility] Last Admin: 12/10/16 17:44 Dose: 2.5 mg Sodium Chloride (Sodium Chloride 0.9%) 1,000 mls @ 70 mls/hr IV .[id number] [facility] Last Admin: 12/10/16 15:48 Dose: 70 mls/hr - Labs Labs: 12/10/16 19:52 12/10/16 19:52 PT 12.3 SECONDS (9.7-12.2) H 12/06/16 13:38 INR 1.1 12/06/16 13:38 APTT 27 SECONDS (21-34) 12/06/16 13:38
[2016-12-11] MEDS: Sodium Chloride 0.9% 1,000 ML IV SCH (05:36)
[2016-12-11 12:37] LABS: HEMATOCRIT 32.2 % (34.0-47.0); MEAN CELL VOLUME 84.8 fL (81.0-99.0); MEAN CORPUSCULAR HEMOGLOBIN 26.9 pg (27.0-31.0); MEAN CORPUSCULAR HGB CONC 31.8 g/dL (33.0-37.0); MEAN PLATELET VOLUME 8.6 fL (7.2-11.7); RED CELL DISTRIBUTION WIDTH 15.3 % (11.5-14.5); WHITE BLOOD COUNT 9.8 K/uL (4.8-10.8)
[2016-12-11 13:00] LABS: POTASSIUM 4.5 mmol/L (3.6-5.2)
[2016-12-11 13:03] LABS: CALCIUM 9.2 mg/dl (8.6-10.4)
--- NOTE | 2016-12-11 13:06 | VASCLAB ---
PROCEDURE: Lower Extremity Venous Duplex Exam. HISTORY: dvt PRIORS: None. TECHNIQUE: Bilateral common femoral, femoral, popliteal and posterior tibial, peroneal and great saphenous veins were evaluated. Flow was assessed with color Doppler, compressibility, assessment of phasic flow and augmentation response. Report prepared by Marlon Langley, IRASEMA, RVT FINDINGS: RIGHT: 1. Common Femoral Vein: 1.1. Compressibility - Fully compressible: Thrombus - None : Flow - Phasic: Augmentation -Normal: Reflux - None. 2. Femoral Vein: 2.1. Compressibility - Fully compressible: Thrombus - None : Flow - Phasic: Augmentation -Normal: Reflux - None. 3. Popliteal Vein: 3.1. Compressibility - Fully compressible: Thrombus - None : Flow - Phasic: Augmentation -Normal: Reflux - None. 4. Posterior Tibial Vein: 4.1. Compressibility - Fully compressible: Thrombus - None: Flow - Phasic: Augmentation -Normal: Reflux - None. 5. Peroneal Vein: 5.1. Compressibility - Fully compressible: Thrombus - None: Flow - Phasic: Augmentation -Normal: Reflux - None. 6. Great Saphenous Vein: 6.1. Compressibility - Fully compressible: Thrombus - None: Flow - Phasic: Augmentation - Normal: Reflux - Severe. LEFT: 1. Common Femoral Vein: 1.1. Compressibility - Fully compressible: Thrombus - None: Flow - Phasic: Augmentation -Normal: Reflux - None. 2. Femoral Vein: 2.1. Compressibility - Fully compressible: Thrombus - None: Flow - Phasic: Augmentation -Normal: Reflux - None. 3. Popliteal Vein: 3.1. Compressibility - Fully compressible: Thrombus - None : Flow - Phasic: Augmentation -Normal: Reflux - None. 4. Posterior Tibial Vein: 4.1. Compressibility - Fully compressible: Thrombus - None: Flow - Phasic: Augmentation -Normal: Reflux - None. 5. Peroneal Vein: 5.1. Compressibility - Fully compressible: Thrombus - None: Flow - Phasic: Augmentation -Normal: Reflux - None. 6. Great Saphenous Vein: 6.1. Compressibility - Fully compressible: Thrombus - None: Flow - Phasic: Augmentation - Normal: Reflux - None. OTHER FINDINGS: Right: None significant. Left: None significant. IMPRESSION: Right: No evidence of deep or superficial vein thrombosis of the right lower extremity. Severe reflux in the right great saphenous vein. Left: No evidence of deep or superficial vein thrombosis of the left lower extremity. Normal valve function noted of the left side.
--- NOTE | 2016-12-11 16:52 | CP.PCM.PN ---
Subjective - Date & Time of Evaluation Date of Evaluation: 12/11/16 Time of Evaluation: 16:51 - Subjective Subjective: Shunt is feeling depressed. Also feeling complaining of weakness. Unable to stand up. She is also unable to move the lower extremities. I would like to get a neurology opinion regarding that. I spoke to the patient's daughter in detail. Continue the physical therapy. Renal function is improving. We will follow the patient. Will get MRI of the lumbosacral spine and the including the brain. Objective - Vital Signs/Intake and Output Vital Signs (last 24 hours): Temp Pulse Resp BP Pulse Ox 98.8 F 106 H 20 106/60 95 12/11/16 15:33 12/11/16 15:33 12/11/16 15:33 12/11/16 15:33 12/11/16 15:33 Intake and Output: 12/11/16 12/11/16 06:59 18:59 Intake Total 810 Output Total 800 Balance 10 - Medications Medications: Current Medications Apixaban (Eliquis) 2.5 mg PO BID [facility] Last Admin: 12/10/16 17:44 Dose: 2.5 mg - Labs Labs: 12/11/16 12:19 12/11/16 12:19 PT 12.3 SECONDS (9.7-12.2) H 12/06/16 13:38 INR 1.1 12/06/16 13:38 APTT 27 SECONDS (21-34) 12/06/16 13:38
--- NOTE | 2016-12-11 21:42 | CP.PCM.PN ---
Subjective - Date & Time of Evaluation Date of Evaluation: 12/11/16 Time of Evaluation: 08:00 - Subjective Subjective: No cardiac events noted Objective - Vital Signs/Intake and Output Vital Signs (last 24 hours): Temp Pulse Resp BP Pulse Ox 98.8 F 92 H 20 106/60 95 12/11/16 15:33 12/11/16 18:00 12/11/16 15:33 12/11/16 15:33 12/11/16 15:33 Intake and Output: 12/11/16 12/12/16 18:59 06:59 Intake Total 810 Output Total 800 Balance 10 - Medications Medications: Current Medications Apixaban (Eliquis) 2.5 mg PO BID [facility] Last Admin: 12/10/16 17:44 Dose: 2.5 mg Docusate Sodium (Colace) 100 mg PO BID [facility] - Labs Labs: 12/11/16 12:19 12/11/16 12:19 PT 12.3 SECONDS (9.7-12.2) H 12/06/16 13:38 INR 1.1 12/06/16 13:38 APTT 27 SECONDS (21-34) 12/06/16 13:38 - Head Exam Head Exam: ATRAUMATIC, NORMAL INSPECTION - Eye Exam Eye Exam: EOMI, Normal appearance, PERRL - ENT Exam ENT Exam: Mucous Membranes Moist - Neck Exam Neck Exam: Full ROM - Respiratory Exam Respiratory Exam: Clear to Ausculation Bilateral, NORMAL BREATHING PATTERN - GI/Abdominal Exam GI & Abdominal Exam: Soft, Normal Bowel Sounds - Extremities Exam Extremities Exam: Full ROM - Neurological Exam Neurological Exam: Alert - Skin Skin Exam: Warm Assessment and Plan - Assessment and Plan (Free Text) Assessment: 1. A Fib 2. HTN 3. Dementia 4. H/O GI bleeding
--- NOTE | 2016-12-12 12:01 | CP.PCM.PN ---
Subjective - Date & Time of Evaluation Date of Evaluation: 12/12/16 Time of Evaluation: 11:59 - Subjective Subjective: Feels better. No palpitations; VR still elevated > 100 OMAR improving - creat decreased to 1.6 No CPs, n, v, SOB, dysuria, HAs Objective - Vital Signs/Intake and Output Vital Signs (last 24 hours): Temp Pulse Resp BP Pulse Ox 98.2 F 107 H 18 121/82 97 12/12/16 07:34 12/12/16 07:34 12/12/16 07:34 12/12/16 07:34 12/12/16 07:34 Intake and Output: 12/12/16 12/12/16 06:59 18:59 Intake Total 240 Output Total 350 Balance -110 - Medications Medications: Current Medications Apixaban (Eliquis) 2.5 mg PO BID [facility] Last Admin: 12/12/16 11:00 Dose: 2.5 mg Docusate Sodium (Colace) 100 mg PO BID [facility] Last Admin: 12/12/16 11:00 Dose: 100 mg - Labs Labs: 12/11/16 12:19 12/11/16 12:19 PT 12.3 SECONDS (9.7-12.2) H 12/06/16 13:38 INR 1.1 12/06/16 13:38 APTT 27 SECONDS (21-34) 12/06/16 13:38 - Constitutional Appears: No Acute Distress, Chronically Ill - Head Exam Head Exam: ATRAUMATIC, NORMAL INSPECTION - Eye Exam Eye Exam: EOMI, Normal appearance - Neck Exam Neck Exam: Normal Inspection. absent: Tenderness - Respiratory Exam Respiratory Exam: Clear to Ausculation Bilateral, NORMAL BREATHING PATTERN - Cardiovascular Exam Cardiovascular Exam: Tachycardia, Irregular Rhythm, +S1 - GI/Abdominal Exam GI & Abdominal Exam: Soft. absent: Tenderness - Extremities Exam Extremities Exam: Normal Inspection. absent: Tenderness - Neurological Exam Neurological Exam: Awake, CN II-XII Intact - Skin Skin Exam: Dry, Warm Assessment and Plan (1) Acute renal failure Status: Acute (2) New onset a-fib Status: Acute - Assessment and Plan (Free Text) Plan: Add metoprolol for rate control Repeat chemistries
[2016-12-12 12:43] LABS: BETA 1 GLOBULIN 0.4 g/dL (0.4-0.6); BETA 2 GLOBULIN 0.5 g/dL (0.2-0.5); GAMMA GLOBULIN 0.7 g/dL (0.8-1.7)
--- NOTE | 2016-12-12 17:21 | CP.PCM.PN ---
Subjective - Date & Time of Evaluation Date of Evaluation: 12/12/16 Time of Evaluation: 17:19 - Subjective Subjective: PT SEEN BY DR. ANN THIS MORNING AND CLEARED FOR D/C TO [facility] TODAY. PT WAS REFERRED AND ACCEPTED TO [facility]. MEDS AND LABS DISCUSSED BRIEFLY WITH DR. ANN PRIOR TO D/C. PT TO BE FOLLOWED BY HIM AT [facility] NORMA EDENARA TO ARRANGE TRANSPORTATION. NO FURTHER ORDERS. Objective - Vital Signs/Intake and Output Vital Signs (last 24 hours): Temp Pulse Resp BP Pulse Ox 98.2 F 107 H 18 121/82 97 12/12/16 07:34 12/12/16 07:34 12/12/16 07:34 12/12/16 07:34 12/12/16 07:34 Intake and Output: 12/12/16 12/12/16 06:59 18:59 Intake Total 240 480 Output Total 350 500 Balance -110 -20 - Medications Medications: Current Medications Apixaban (Eliquis) 2.5 mg PO BID [facility] Last Admin: 12/12/16 11:00 Dose: 2.5 mg Docusate Sodium (Colace) 100 mg PO BID [facility] Last Admin: 12/12/16 11:00 Dose: 100 mg Metoprolol Tartrate (Lopressor) 25 mg PO BID [facility] - Labs Labs: 12/11/16 12:19 12/11/16 12:19 PT 12.3 SECONDS (9.7-12.2) H 12/06/16 13:38 INR 1.1 12/06/16 13:38 APTT 27 SECONDS (21-34) 12/06/16 13:38
[2016-12-12 18:49] VITALS: RESP 20
--- NOTE | 2016-12-12 19:43 | CP.PCM.PN ---
Subjective - Date & Time of Evaluation Date of Evaluation: 12/12/16 Time of Evaluation: 19:43 - Subjective Subjective: Patient's MRI of the lumbosacral and the brain a reviewed Spoke to the neurologist. Currently patient is feeling somewhat better. I spoke to the patient's daughter in details. We'll continue the physical therapy. We will follow the patient Objective - Vital Signs/Intake and Output Vital Signs (last 24 hours): Temp Pulse Resp BP Pulse Ox 99.4 F 93 H 20 150/89 95 12/12/16 15:35 12/12/16 16:00 12/12/16 15:35 12/12/16 17:54 12/12/16 15:35 Intake and Output: 12/12/16 12/13/16 18:59 06:59 Intake Total 480 Output Total 500 Balance -20 - Medications Medications: Current Medications Apixaban (Eliquis) 2.5 mg PO BID [facility] Last Admin: 12/12/16 17:53 Dose: 2.5 mg Docusate Sodium (Colace) 100 mg PO BID [facility] Last Admin: 12/12/16 17:53 Dose: 100 mg Metoprolol Tartrate (Lopressor) 25 mg PO BID [facility] Last Admin: 12/12/16 17:54 Dose: 25 mg Multivitamins/Vitamin C (Multi-Delyn Liquid) 5 ml PO DAILY [facility] - Labs Labs: 12/11/16 12:19 12/11/16 12:19 PT 12.3 SECONDS (9.7-12.2) H 12/06/16 13:38 INR 1.1 12/06/16 13:38 APTT 27 SECONDS (21-34) 12/06/16 13:38
--- NOTE | 2016-12-12 21:41 | CP.PCM.PN ---
Subjective - Date & Time of Evaluation Date of Evaluation: 12/12/16 Time of Evaluation: 18:00 - Subjective Subjective: Patient seen and evaluated C/O Back pain and leg pains Objective - Vital Signs/Intake and Output Vital Signs (last 24 hours): Temp Pulse Resp BP Pulse Ox 99.4 F 93 H 20 150/89 95 12/12/16 15:35 12/12/16 16:00 12/12/16 15:35 12/12/16 17:54 12/12/16 15:35 Intake and Output: 12/12/16 12/13/16 18:59 06:59 Intake Total 480 Output Total 500 Balance -20 - Medications Medications: Current Medications Apixaban (Eliquis) 2.5 mg PO BID [facility] Last Admin: 12/12/16 17:53 Dose: 2.5 mg Docusate Sodium (Colace) 100 mg PO BID [facility] Last Admin: 12/12/16 17:53 Dose: 100 mg Lactulose (Enulose) 20 gm PO [facility] Metoprolol Tartrate (Lopressor) 25 mg PO BID [facility] Last Admin: 12/12/16 17:54 Dose: 25 mg Multivitamins (Hexavitamin) 1 tab PO DAILY [facility] - Labs Labs: 12/11/16 12:19 12/11/16 12:19 PT 12.3 SECONDS (9.7-12.2) H 12/06/16 13:38 INR 1.1 12/06/16 13:38 APTT 27 SECONDS (21-34) 12/06/16 13:38 - Head Exam Head Exam: ATRAUMATIC - Eye Exam Eye Exam: EOMI, Normal appearance, PERRL - ENT Exam ENT Exam: Mucous Membranes Moist - Neck Exam Neck Exam: Full ROM, Normal Inspection - Respiratory Exam Respiratory Exam: NORMAL BREATHING PATTERN - Cardiovascular Exam Cardiovascular Exam: Irregular Rhythm, +S1, +S2 - GI/Abdominal Exam GI & Abdominal Exam: Soft, Normal Bowel Sounds - Neurological Exam Neurological Exam: Alert, CN II-XII Intact, Oriented x3 Assessment and Plan - Assessment and Plan (Free Text) Assessment: 1. A Fib on Eliquis 2. HTN 3. Back pain and leg pains D/W PMD. will get MRI and neuro eval
[2016-12-13 06:37] LABS: HEMATOCRIT 27.8 % (34.0-47.0); MEAN CELL VOLUME 83.8 fL (81.0-99.0); MEAN CORPUSCULAR HEMOGLOBIN 27.8 pg (27.0-31.0); MEAN CORPUSCULAR HGB CONC 33.2 g/dL (33.0-37.0); MEAN PLATELET VOLUME 8.1 fL (7.2-11.7); RED CELL DISTRIBUTION WIDTH 15.1 % (11.5-14.5); WHITE BLOOD COUNT 6.7 K/uL (4.8-10.8)
[2016-12-13 07:49] LABS: POTASSIUM 4.1 mmol/L (3.6-5.2)
[2016-12-13 07:51] LABS: ALB/GLOB RATIO 0.8 (1.0-2.1); BILIRUBIN,TOTAL 0.5 mg/dL (0.2-1.3); TOTAL PROTEIN 5.5 g/dL (6.3-8.3)
[2016-12-13 07:52] LABS: CALCIUM 8.7 mg/dl (8.6-10.4)
[2016-12-13] MEDS: Multiple Vitamins Tab PO SCH (10:23)
[2016-12-13 12:11] LABS: FREE T4 1.52 ng/dL (0.78-2.19)
[2016-12-13 12:27] LABS: THYROID STIMULATING HORMONE 0.75 mIU/L (0.46-4.68)
--- NOTE | 2016-12-13 14:09 | CP.PCM.PN ---
Subjective - Date & Time of Evaluation Date of Evaluation: 12/13/16 Time of Evaluation: 14:07 - Subjective Subjective: c/o leg pains neuro eval in progress no n/v/d/fevers/chills/sob/chest pain labs noted Objective - Vital Signs/Intake and Output Vital Signs (last 24 hours): Temp Pulse Resp BP Pulse Ox 98.5 F 86 20 118/81 97 12/13/16 07:00 12/13/16 07:00 12/13/16 07:00 12/13/16 10:23 12/13/16 07:00 - Medications Medications: Current Medications Apixaban (Eliquis) 2.5 mg PO BID [facility] Last Admin: 12/13/16 10:23 Dose: 2.5 mg Docusate Sodium (Colace) 100 mg PO BID [facility] Last Admin: 12/13/16 10:23 Dose: 100 mg Lactulose (Enulose) 20 gm PO HS [facility] Last Admin: 12/12/16 21:55 Dose: 20 gm Metoprolol Tartrate (Lopressor) 25 mg PO BID [facility] Last Admin: 12/13/16 10:23 Dose: 25 mg Multivitamins (Hexavitamin) 1 tab PO DAILY [facility] Last Admin: 12/13/16 10:23 Dose: 1 tab - Labs Labs: 12/13/16 06:26 12/13/16 06:26 PT 12.3 SECONDS (9.7-12.2) H 12/06/16 13:38 INR 1.1 12/06/16 13:38 APTT 27 SECONDS (21-34) 12/06/16 13:38 - Constitutional Appears: Non-toxic, No Acute Distress - Head Exam Head Exam: NORMAL INSPECTION - Eye Exam Eye Exam: Normal appearance - ENT Exam ENT Exam: Mucous Membranes Moist, Normal Exam - Neck Exam Neck Exam: Normal Inspection - Respiratory Exam Respiratory Exam: Clear to Ausculation Bilateral, NORMAL BREATHING PATTERN - Cardiovascular Exam Cardiovascular Exam: Irregular Rhythm - GI/Abdominal Exam GI & Abdominal Exam: Distended, Soft, Normal Bowel Sounds - Extremities Exam Extremities Exam: Normal Inspection Assessment and Plan (1) Acute renal failure Status: Acute (2) New onset a-fib Status: Acute - Assessment and Plan (Free Text) Assessment: stable renal ruffin outpt follow up
--- NOTE | 2016-12-13 14:58 | CON ---
NEUROLOGIC CONSULTATION DATE OF EVALUATION: 12/13/2016 LOCATION: The patient in room 657, bed B. ATTENDING PHYSICIAN: Kolby Redman MD REASON FOR THE CONSULTATION: Weakness of her legs. CHIEF COMPLAINT: The patient was admitted with shortness of breath and weakness. The patient was found to have new atrial fibrillation. During the hospital course, the patient was found to have leg weakness prior to the discharge. From neurological point of view, I was called in to evaluate her for further management. HISTORY OF PRESENT ILLNESS: Ms. Emely Goldstein is an 80-year-old right-handed female presenting with about a year and a half history of leg weakness, usually she is scared to use the cane that she is scared of falling that made her to use the walker. She came into the hospital with generalized weakness and in the family care physician's office, she was found to have new atrial fibrillation. The patient was admitted for the same purpose of evaluation. During the hospital course, the patient could not be able to walk by her own in spite of using her walker. No history of back pain. No history of neck pain. No history of visual or bulbar dysfunction. No history of double vision. No history of visual disturbances. She also states that she does have right shoulder pain with weakness of the right arm compared to the left arm. No history of bladder incontinence. No history of recent viral illness. However, generalized weakness. No history of flu. No history of recent vaccination. No history of bowel and bladder incontinence. PAST MEDICAL HISTORY: Hypertension, newly diagnosed atrial fibrillation. PERSONAL HISTORY: Denies smoking or alcohol use. The patient did have pneumococcal vaccine on 12/13/2016. REVIEW OF SYSTEMS: All 12-point system has been reviewed from neurological system. The patient does have progressive weakness of her legs. MEDICATIONS: Colace, Eliquis, Hexavitamin, Vitamin and Lopressor. PHYSICAL EXAMINATION: VITAL SIGNS: Blood pressure 107/72, mean arterial pressure of 83, respiratory rate is 18, and temperature 98.3, pulse rate 92, irregular. NECK: Supple. No carotic bruit. HEART: Sounds irregular. EXTREMITIES: 1+ pitting edema. Both legs are externally rotated, more pronounced on the left than her right side. NEUROLOGICAL EXAMINATION: Mental status examination: She is awake, alert, oriented to person, place, and time. Speech is clear, naming, repetition, fluency, and comprehension all within normal. CRANIAL NERVE EXAMINATION: Visual field intact. Pupils are reactive to light. Slightly decreased vertical gaze up and down. No facial sensory deficit. No facial asymmetry. Hearing is normal. Tongue is midline. Good gag. MOTOR EXAMINATION: Restricted movement due to the pain on her right shoulder proximal muscle groups to compare with the distal muscles groups. There are no fasciculations at rest in all four extremities. Weakness of right upper extremity proximally 4/5, left side 5-/5, distally 5/5. 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 Both lower extremities iliopsoas and hip flexion is 4/5, distally 5-/5. Left foot shows eversion and EHL weakness consistent with left foot drop. SENSORY EXAMINATION: Position sense intact. Decreased to vibration and pinprick distally noted in both lower extremities. Deep tendon reflexes absent throughout. Planters are downgoing. COORDINATION: [id number] test is intact. GAIT: Gait is deferred at this time. LABORATORY DATA: WBC 6.7, hemoglobin 9.2, hematocrit 27.8, and platelet 227. Sodium 141, potassium 4.5, chloride 106, bicarbonate 21, BUN 32, and creatinine 1.6. GFR is 37. Glucose 102. CONCLUSION: Upon reviewing her history and neurological examination, Ms. Emely Goldstein has been presenting with chronic lower extremities weakness presenting with inability to walk for the last one week. The current examination shows left foot drop and proximal weakness on the right more than his left arm as well including lower extremities consistent with progressive muscle versus nerve disorder that include: 1. 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 2. Generalize muscle weakness, probably myositis or myopathy process. Considering her weakness following vaccination, Guillain-Picayune syndrome should be ruled out. However, central causes should be ruled out including parasagittal lesion versus infarction should be ruled out. Other problem including lumbosacral area should be ruled out because of progressive weakness of her leg in addition to that patient does have left foot drop. RECOMMENDATIONS: 1. Continue Eliquis for her atrial fibrillation as stroke prophylaxis. 2. The patient should be kept on fall precaution and DVT prophylaxis. 3. I agree that the patient should have MRI of the brain and lumbosacral spine. 4. Blood workup as per the order. 5. Considering her problem and Eliquis, spinal tap should be on hold for now. We will decide after her recommended workup as mentioned above. The patient's condition will be discussed with Dr. Redman. Sloan Del Toro MD [facility]
--- NOTE | 2016-12-13 15:26 | MRI ---
PROCEDURE: MRI BRAIN WITHOUT CONTRAST HISTORY: R/O PARASAGITTAL LESION Vs STROKE COMPARISON: None. TECHNIQUE: Multiplanar, multisequence MR images of the brain were obtained without intravenous contrast enhancement. FINDINGS: HEMORRHAGE: None DWI: No evidence of an acute or early subacute infarction. BRAIN PARENCHYMA: A tiny chronic lacune is seen the right cerebellum posteriorly. No acute or subacute brain infarction identified throughout the exam. Expanded ventricular sulcal and cisternal spaces are identified compatible diffuse cerebral atrophy. Limited white-matter changes are appreciated in the cerebral periventricular and subcortical white matter compatible with chronic microangiopathy. There is no mass effect or suspicious extra-axial fluid collection appreciated. The midline brain anatomy appears to be diffusely unremarkable. VENTRICLES: Unremarkable. No hydrocephalus. CRANIUM: Unremarkable. ORBITS: Grossly unremarkable. PARANASAL SINUSES/MASTOIDS: Clear VASCULAR SYSTEM: Skull base flow voids intact. OTHER FINDINGS: None. IMPRESSION: Mild age related neuro degenerative changes are appreciated which are age-appropriate. No acute intracranial findings, including brain infarction. A chronic lacune is seen in the right cerebellum.
--- NOTE | 2016-12-13 16:17 | MRI ---
PROCEDURE: MR LUMBAR SPINE WITHOUT CONTRAST HISTORY: leg weakness COMPARISON: Comparison made prior and pelvis CT 12/13/2016. TECHNIQUE: Multiecho multiplanar sequences were performed through the lumbar spine without the use of intravenous contrast. FINDINGS: Normal lumbar lordosis. Mild L1 vertebral compression fracture is again appreciated. No marrow edema is seen related no endplate degenerative changes surrounding T12-L1 disc interspace. Limited endplate degenerate changes seen at L5-S1. Diffuse disc desiccation is seen throughout the exam with disc height loss appearing prominent at L5-S1 as well Conus medullaris unremarkable at the level of L1. Prevertebral soft tissues appear unremarkable. Paraspinal soft tissues are unremarkable. T12-L1: No disc herniation, spinal canal stenosis or neural foraminal narrowing as well as at T11-12. Mild facet joint degenerate change are identified here as well as at T11-12 incidentally. L1-2: No disc herniation, spinal canal stenosis or neural foraminal narrowing. [id number] facet joint arthropathy is appreciated symmetrically. L2-3: No disc herniation, spinal canal stenosis or neural foraminal narrowing. [id number] facet joint arthropathy is appreciated symmetrically. L3-4: No disc herniation, spinal canal stenosis or neural foraminal narrowing. Moderate facet degenerate changes are identified symmetrically. Edema is seen in the right paraspinal fat infero posterior to the right facet joint which may be a function of advanced degenerative change or even synovial cyst rupture. L4-5: No disc herniation, spinal canal stenosis or neural foraminal narrowing. Moderate to severe facet arthropathy is appreciated somewhat greater the right than left sides encroaching the lateral recesses without causing significant generalized central canal stenosis nevertheless. Edema is seen posterior inferior to the bilateral facet joints greater at the right than left sides likely related to advanced degenerative facet arthropathy or even potential synovial cyst rupture. L5-S1: A mild disc osteophyte complex is appreciate including an annular tear combining with facet arthropathy to cause lateral recess stenosis slightly greater the right than left side but without generalized central canal stenosis. No definite disc herniation. Borderline bilateral neural foraminal stenosis identified. No definite disc herniation. OTHER FINDINGS: None. IMPRESSION: 1. No severe spinal stenosis appreciate throughout the exam including the bilateral neural foramina. 2. Limited bilateral lateral recess stenosis appreciated L4-5 and L5-S1 on degenerative basis. Borderline bilateral L5-S1 degenerative neural foraminal stenosis. 3. Multilevel advanced degenerate facet arthropathy seen worst at the L3-4 and L4-5 levels with likely associated edema posterior to the bilateral L4-5 facet joints and right L3-4 joint without erosive bony changes.
--- NOTE | 2016-12-13 23:32 | CP.PCM.PN ---
Subjective - Date & Time of Evaluation Date of Evaluation: 12/13/16 Time of Evaluation: 23:32 - Subjective Subjective: Discussed with the patient's daughter in details. Patient is able to move the right lower extremity better than the left side. Right shoulder difficulty noted. Patient is eating slightly better than yesterday. Urine output is better. Vital signs reviewed No neck vein distention noted Chest good air entry bilaterally, no wheezing or rales noted CVS regular heart sound, no murmur noted Abdomen soft, nontender. 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 Patient will need physical therapy. We'll get a neurological clearance before sending her to the rehabilitation Objective - Vital Signs/Intake and Output Vital Signs (last 24 hours): Temp Pulse Resp BP Pulse Ox 98.8 F 97 H 20 133/68 95 12/13/16 16:00 12/13/16 16:00 12/13/16 16:00 12/13/16 18:02 12/13/16 16:00 - Medications Medications: Current Medications Apixaban (Eliquis) 2.5 mg PO BID [facility] Last Admin: 12/13/16 18:02 Dose: 2.5 mg Docusate Sodium (Colace) 100 mg PO BID [facility] Last Admin: 12/13/16 18:02 Dose: 100 mg Lactulose (Enulose) 20 gm PO HS [facility] Last Admin: 12/13/16 21:22 Dose: 20 gm Metoprolol Tartrate (Lopressor) 25 mg PO BID [facility] Last Admin: 12/13/16 18:02 Dose: 25 mg Multivitamins (Hexavitamin) 1 tab PO DAILY [facility] Last Admin: 12/13/16 10:23 Dose: 1 tab - Labs Labs: 12/13/16 06:26 12/13/16 06:26 PT 12.3 SECONDS (9.7-12.2) H 12/06/16 13:38 INR 1.1 12/06/16 13:38 APTT 27 SECONDS (21-34) 12/06/16 13:38
--- NOTE | 2016-12-14 08:44 | PN ---
DATE: 12/14/2016 NEUROLOGICAL PROBLEM: Leg weakness. SUBJECTIVE: Furthermore history gathered from her today. She claims that subacute process of leg weakness for the last week prior to the admission, though she has been using the walker there is somewhat more weakness of her leg than in the past. There is no history of fall, no history of bowel and bladder incontinence because of the generalized weakness in addition to her leg weakness that made her to see the primary care physician and she was found in atrial fibrillation. Day after the admission she recognized that her leg weakness is more pronounced than she was before. She felt that she could not able to walk with that kind of weakness. Two days later she claims IV fluids on her right arm that made her weakness of right arm. The examination does not show any inflammatory sign on the injection site of right arm; however, she does have significant weakness of the right arm compared with the left arm. These are all episodes not associating with any sensory progression, not associating with the bowel and bladder discomfort or dysfunction. No history of head weakness, no history of double vision. No history of difficulty to swallow. No history of loss of consciousness or involuntary moments associating with this problem. During the admission, the patient does not show any raise in temperature. PHYSICAL EXAMINATION: VITAL SIGNS: Blood pressure 132/84, mean arterial pressure of 100, respiratory rate is 16, and temperature 98.5 with a pulse rate 90, irregular. CRANIAL NERVES EXAMINATION: Normal. Mentation is normal. The arm examination of the right side, right supraspinatus, deltoid and triceps are 4-/4. Rest of the muscle groups are 4/4. Left side 5-/5. Both iliopsoas and quadriceps are 4/5. Left extensor hallucis longus and everters are 4/5. Right foot is 5-/5. Deep tendon reflexes absent in all extremities. Plantars are mute. Sensory examination is grossly intact. Her workup MRI of the brain, there is no parasagittal pathology that could explain her leg weakness. MRI of the lumbosacral spine revealed severe degenerative process and facet hypertrophy in lumbar L3-L4, L4-L5 region. Neuroforamina are somewhat narrowing without any significant stenosis noted. CONCLUSION: 1. The patient does have long-standing lumbosacral pathology associating with left L5 radiculopathy consistent with left footdrop. 2. 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 No cardiopulmonary compensation associated with this problem. Only way to diagnose this is doing spinal tap to access CSF analysis for cytoalbuminologic dissociation. After explaining her in detail, the patient refused to do except spinal tap. The alternate diagnosis being discussed with her by doing nerve conduction studies. She agreed with that. That will be performed as outpatient. Considering her nonprogressive motor dysfunction, I would like her to continue the present management, get her out of the bed and physical therapy should be entertained as early as possible. The patient is a good candidate for acute rehabilitation to improve her gait as well as the strength. The patient definitely need nerve conduction studies and electromyography that can be done as outpatient to establish the diagnosis. If medically clear, the patient should go for acute rehab. Sloan Del Toro MD
[2016-12-14] MEDS: Multiple Vitamins Tab PO SCH (09:47)
--- NOTE | 2016-12-14 14:12 | CP.PCM.PN ---
Subjective - Date & Time of Evaluation Date of Evaluation: 12/14/16 Time of Evaluation: 14:10 - Subjective Subjective: Feels better VR better controlled- in 80s OMAR continues to improve- creat at 1.4 No n, v, CPs, diarrhea, fevers, chills Objective - Vital Signs/Intake and Output Vital Signs (last 24 hours): Temp Pulse Resp BP Pulse Ox 98.9 F 89 20 128/80 97 12/14/16 08:00 12/14/16 08:00 12/14/16 08:00 12/14/16 09:47 12/14/16 08:00 Intake and Output: 12/14/16 12/14/16 06:59 18:59 Intake Total 560 Output Total 900 Balance -340 - Medications Medications: Current Medications Apixaban (Eliquis) 2.5 mg PO BID [facility] Last Admin: 12/14/16 09:46 Dose: 2.5 mg Docusate Sodium (Colace) 100 mg PO BID [facility] Last Admin: 12/14/16 09:47 Dose: 100 mg Lactulose (Enulose) 20 gm PO HS [facility] Last Admin: 12/13/16 21:22 Dose: 20 gm Metoprolol Tartrate (Lopressor) 25 mg PO BID [facility] Last Admin: 12/14/16 09:47 Dose: 25 mg Multivitamins (Hexavitamin) 1 tab PO DAILY [facility] Last Admin: 12/14/16 09:47 Dose: 1 tab - Labs Labs: 12/13/16 06:26 12/13/16 06:26 PT 12.3 SECONDS (9.7-12.2) H 12/06/16 13:38 INR 1.1 12/06/16 13:38 APTT 27 SECONDS (21-34) 12/06/16 13:38 - Constitutional Appears: No Acute Distress, Chronically Ill - Head Exam Head Exam: ATRAUMATIC, NORMAL INSPECTION - Eye Exam Eye Exam: EOMI, Normal appearance - Neck Exam Neck Exam: Normal Inspection. absent: Tenderness - Respiratory Exam Respiratory Exam: Clear to Ausculation Bilateral, NORMAL BREATHING PATTERN - Cardiovascular Exam Cardiovascular Exam: Irregular Rhythm, +S1 - GI/Abdominal Exam GI & Abdominal Exam: Soft. absent: Tenderness - Extremities Exam Extremities Exam: Normal Inspection. absent: Tenderness - Neurological Exam Neurological Exam: Alert, CN II-XII Intact - Skin Skin Exam: Dry, Warm Assessment and Plan (1) Acute renal failure Status: Acute (2) New onset a-fib Status: Acute - Assessment and Plan (Free Text) Plan: Same meds Monitor renal function Same BP meds
--- NOTE | 2016-12-14 14:57 | CP.PCM.PN ---
Subjective - Date & Time of Evaluation Date of Evaluation: 12/13/16 Time of Evaluation: 08:40 - Subjective Subjective: Patient comfortale denies chest pain and dyspnea Creatinine getting better Work up in progress for back pain and leg weakness Objective - Vital Signs/Intake and Output Vital Signs (last 24 hours): Temp Pulse Resp BP Pulse Ox 98.9 F 89 20 128/80 97 12/14/16 08:00 12/14/16 08:00 12/14/16 08:00 12/14/16 09:47 12/14/16 08:00 Intake and Output: 12/14/16 12/14/16 06:59 18:59 Intake Total 560 Output Total 900 Balance -340 - Medications Medications: Current Medications Apixaban (Eliquis) 2.5 mg PO BID [facility] Last Admin: 12/14/16 09:46 Dose: 2.5 mg Docusate Sodium (Colace) 100 mg PO BID [facility] Last Admin: 12/14/16 09:47 Dose: 100 mg Lactulose (Enulose) 20 gm PO HS [facility] Last Admin: 12/13/16 21:22 Dose: 20 gm Metoprolol Tartrate (Lopressor) 25 mg PO BID [facility] Last Admin: 12/14/16 09:47 Dose: 25 mg Multivitamins (Hexavitamin) 1 tab PO DAILY [facility] Last Admin: 12/14/16 09:47 Dose: 1 tab - Labs Labs: 12/13/16 06:26 12/13/16 06:26 PT 12.3 SECONDS (9.7-12.2) H 12/06/16 13:38 INR 1.1 12/06/16 13:38 APTT 27 SECONDS (21-34) 12/06/16 13:38
--- NOTE | 2016-12-14 22:30 | CP.PCM.PN ---
Subjective - Date & Time of Evaluation Date of Evaluation: 12/14/16 Time of Evaluation: 07:45 - Subjective Subjective: Patient seen and evaluated Feels better today No cardiac events Objective - Vital Signs/Intake and Output Vital Signs (last 24 hours): Temp Pulse Resp BP Pulse Ox 98.3 F 86 20 118/76 97 12/14/16 15:01 12/14/16 15:01 12/14/16 15:01 12/14/16 18:44 12/14/16 15:01 Intake and Output: 12/14/16 12/15/16 18:59 06:59 Intake Total 600 Balance 600 - Medications Medications: Current Medications Apixaban (Eliquis) 2.5 mg PO BID [facility] Last Admin: 12/14/16 18:44 Dose: 2.5 mg Docusate Sodium (Colace) 100 mg PO BID [facility] Last Admin: 12/14/16 18:44 Dose: 100 mg Lactulose (Enulose) 20 gm PO HS [facility] Last Admin: 12/14/16 21:51 Dose: 20 gm Metoprolol Tartrate (Lopressor) 25 mg PO BID [facility] Last Admin: 12/14/16 18:44 Dose: 25 mg Multivitamins (Hexavitamin) 1 tab PO DAILY [facility] Last Admin: 12/14/16 09:47 Dose: 1 tab - Labs Labs: 12/13/16 06:26 12/13/16 06:26 PT 12.3 SECONDS (9.7-12.2) H 12/06/16 13:38 INR 1.1 12/06/16 13:38 APTT 27 SECONDS (21-34) 12/06/16 13:38
--- NOTE | 2016-12-14 23:39 | CP.PCM.PN ---
Subjective - Date & Time of Evaluation Date of Evaluation: 12/14/16 Time of Evaluation: 23:38 - Subjective Subjective: Patient today eat better. But she still does not have any BM. She is able to stand up today, and made 3 steps. Left-sided weakness noted. No chest pain. Seen by neurologist. Patient refusing lumbar puncture to rule out Guillain-Causey syndrome Vital signs reviewed No neck vein distention noted Chest good air entry bilaterally, no wheezing or rales noted CVS regular heart sound, no murmur noted Abdomen soft, nontender. 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 After the clearance by tomorrow possible discharge planning the morning. We'll repeat the labs in the morning. Fleet Enema in the morning Objective - Vital Signs/Intake and Output Vital Signs (last 24 hours): Temp Pulse Resp BP Pulse Ox 98.3 F 86 20 118/76 97 12/14/16 15:01 12/14/16 15:01 12/14/16 15:01 12/14/16 18:44 12/14/16 15:01 Intake and Output: 12/14/16 12/15/16 18:59 06:59 Intake Total 600 320 Balance 600 320 - Medications Medications: Current Medications Apixaban (Eliquis) 2.5 mg PO BID [facility] Last Admin: 12/14/16 18:44 Dose: 2.5 mg Docusate Sodium (Colace) 100 mg PO BID [facility] Last Admin: 12/14/16 18:44 Dose: 100 mg Lactulose (Enulose) 20 gm PO HS [facility] Last Admin: 12/14/16 21:51 Dose: 20 gm Metoprolol Tartrate (Lopressor) 25 mg PO BID [facility] Last Admin: 12/14/16 18:44 Dose: 25 mg Multivitamins (Hexavitamin) 1 tab PO DAILY [facility] Last Admin: 12/14/16 09:47 Dose: 1 tab - Labs Labs: 12/13/16 06:26 12/13/16 06:26 PT 12.3 SECONDS (9.7-12.2) H 12/06/16 13:38 INR 1.1 12/06/16 13:38 APTT 27 SECONDS (21-34) 12/06/16 13:38
[2016-12-15 07:24] LABS: BASO # 0.1 K/uL (0.0-0.2); EOS # 0.3 K/uL (0.0-0.7); EOS % 3.8 % (0.0-4.0); HEMATOCRIT 28.5 % (34.0-47.0); LYMPH # 0.9 K/uL (1.0-4.3); LYMPH % 13.5 % (20.0-40.0); MEAN CELL VOLUME 83.9 fL (81.0-99.0); MEAN CORPUSCULAR HEMOGLOBIN 27.4 pg (27.0-31.0); MEAN CORPUSCULAR HGB CONC 32.6 g/dL (33.0-37.0); MEAN PLATELET VOLUME 8.3 fL (7.2-11.7); MONO # 0.6 K/uL (0.0-0.8); MONO % 9.1 % (0.0-10.0); RED CELL DISTRIBUTION WIDTH 15.1 % (11.5-14.5); WHITE BLOOD COUNT 6.7 K/uL (4.8-10.8)
[2016-12-15 08:16] LABS: ALB/GLOB RATIO 0.8 (1.0-2.1); BILIRUBIN,TOTAL 0.4 mg/dL (0.2-1.3); CALCIUM 8.7 mg/dl (8.6-10.4); POTASSIUM 4.4 mmol/L (3.6-5.2); TOTAL PROTEIN 5.7 g/dL (6.3-8.3)
[2016-12-15 08:55] VITALS: O2SAT 99
[2016-12-15] MEDS: Multiple Vitamins Tab PO SCH (09:57)
--- NOTE | 2016-12-15 10:23 | CP.PCM.PN ---
Subjective - Date & Time of Evaluation Date of Evaluation: 12/15/16 Time of Evaluation: 10:20 - Subjective Subjective: Alert; NAD VR- 80s still Creat stable at 1.4 No CPs, dyspnea, dysuria, n, v, f, chills BP controlled Objective - Vital Signs/Intake and Output Vital Signs (last 24 hours): Temp Pulse Resp BP Pulse Ox 98.2 F 95 H 20 137/79 99 12/15/16 08:54 12/15/16 08:54 12/15/16 08:54 12/15/16 09:57 12/15/16 08:54 Intake and Output: 12/15/16 12/15/16 06:59 18:59 Intake Total 320 Output Total 1 Balance 319 - Medications Medications: Current Medications Apixaban (Eliquis) 2.5 mg PO BID [facility] Last Admin: 12/15/16 09:57 Dose: 2.5 mg Docusate Sodium (Colace) 100 mg PO BID [facility] Last Admin: 12/15/16 09:57 Dose: 100 mg Lactulose (Enulose) 20 gm PO HS [facility] Last Admin: 12/14/16 21:51 Dose: 20 gm Metoprolol Tartrate (Lopressor) 25 mg PO BID [facility] Last Admin: 12/15/16 09:57 Dose: 25 mg Multivitamins (Hexavitamin) 1 tab PO DAILY [facility] Last Admin: 12/15/16 09:57 Dose: 1 tab - Labs Labs: 12/15/16 06:51 12/15/16 06:51 PT 12.3 SECONDS (9.7-12.2) H 12/06/16 13:38 INR 1.1 12/06/16 13:38 APTT 27 SECONDS (21-34) 12/06/16 13:38 - Constitutional Appears: No Acute Distress, Chronically Ill - Head Exam Head Exam: ATRAUMATIC, NORMAL INSPECTION - Eye Exam Eye Exam: EOMI, Normal appearance - Neck Exam Neck Exam: Normal Inspection. absent: Tenderness - Respiratory Exam Respiratory Exam: Clear to Ausculation Bilateral, NORMAL BREATHING PATTERN - Cardiovascular Exam Cardiovascular Exam: Irregular Rhythm, +S1 - GI/Abdominal Exam GI & Abdominal Exam: Soft. absent: Tenderness - Extremities Exam Extremities Exam: Normal Inspection. absent: Tenderness - Neurological Exam Neurological Exam: Alert, CN II-XII Intact - Skin Skin Exam: Dry, Warm Assessment and Plan (1) Acute renal failure Status: Resolved (2) New onset a-fib Status: Acute (3) CKD (chronic kidney disease) stage 3, GFR 30-59 ml/min Status: Acute - Assessment and Plan (Free Text) Plan: Renal function possibly at baseline- stable Would continue same meds Possible d/c today
[2016-12-15 16:59] VITALS: BP 132/74
[2016-12-15 17:22] VITALS: PULSE 89; TEMP 98.1
--- NOTE | 2016-12-16 14:17 | CP.PCM.DIS ---
Provider - Provider Date of Admission: 12/06/16 14:33 Attending physician: Kolby Redman MD Time Spent in preparation of Discharge (in minutes): 45 Hospital Course - Lab Results Lab Results: Most Recent Lab Values WBC 6.7 K/uL (4.8-10.8) 12/15/16 06:51 RBC 3.40 Mil/uL (3.80-5.20) L 12/15/16 06:51 Hgb 9.3 g/dL (11.0-16.0) L 12/15/16 06:51 Hct 28.5 % (34.0-47.0) L 12/15/16 06:51 MCV 83.9 fL (81.0-99.0) 12/15/16 06:51 MCH 27.4 pg (27.0-31.0) 12/15/16 06:51 MCHC 32.6 g/dL (33.0-37.0) L 12/15/16 06:51 RDW 15.1 % (11.5-14.5) H 12/15/16 06:51 Plt Count 260 K/uL (130-400) 12/15/16 06:51 MPV 8.3 fL (7.2-11.7) 12/15/16 06:51 Neut % (Auto) 72.6 % (50.0-75.0) 12/15/16 06:51 Lymph % (Auto) 13.5 % (20.0-40.0) L 12/15/16 06:51 [place] % (Auto) 9.1 % (0.0-10.0) 12/15/16 06:51 Eos % (Auto) 3.8 % (0.0-4.0) 12/15/16 06:51 Baso % (Auto) 1.0 % (0.0-2.0) 12/15/16 06:51 Neut # 4.9 K/uL (1.8-7.0) 12/15/16 06:51 Lymph # 0.9 K/uL (1.0-4.3) L 12/15/16 06:51 [place] # 0.6 K/uL (0.0-0.8) 12/15/16 06:51 Eos # 0.3 K/uL (0.0-0.7) 12/15/16 06:51 Baso # 0.1 K/uL (0.0-0.2) 12/15/16 06:51 ESR 128 mm/hr (0-20) H 12/13/16 11:18 PT 12.3 SECONDS (9.7-12.2) H 12/06/16 13:38 INR 1.1 12/06/16 13:38 APTT 27 SECONDS (21-34) 12/06/16 13:38 Sodium 141 mmol/L (132-148) 12/15/16 06:51 Potassium 4.4 mmol/L (3.6-5.2) 12/15/16 06:51 Chloride 104 mmol/L (98-107) 12/15/16 06:51 Carbon Dioxide 26 mmol/L (22-30) 12/15/16 06:51 Anion Gap 15 (10-20) 12/15/16 06:51 BUN 29 mg/dL (7-17) H 12/15/16 06:51 Creatinine 1.4 MG/DL (0.7-1.2) H 12/15/16 06:51 Est GFR ( Amer) 44 12/15/16 06:51 Est GFR (Non-Af Amer) 36 12/15/16 06:51 Random Glucose 101 mg/dL (65-105) 12/15/16 06:51 Hemoglobin A1c 6.3 % (4.2-6.5) 12/13/16 11:18 Calcium 8.7 mg/dl (8.6-10.4) 12/15/16 06:51 Total Bilirubin 0.4 mg/dL (0.2-1.3) 12/15/16 06:51 AST 19 U/L (14-36) 12/15/16 06:51 ALT 25 U/L (9-52) 12/15/16 06:51 Alkaline Phosphatase 68 U/L (38-126) 12/15/16 06:51 Total Creatine Kinase 25 U/L (30-135) L 12/13/16 11:18 CK-MB (Mass) 6.37 ng/mL (0.0-3.38) H 12/07/16 08:03 Troponin I 0.0730 ng/mL (0.00-0.120) 12/06/16 13:38 Troponin I, Quant 0.0590 ng/mL (0.00-0.120) 12/07/16 08:03 C-React Prot High Sens > 15.00 mg/L (1.00-3.00) H 12/13/16 11:18 Total Protein 5.7 g/dL (6.3-8.3) L 12/15/16 06:51 Total Protein (PEP) 5.8 g/dL (6.1-8.1) L 12/07/16 16:45 Albumin 2.5 g/dL (3.5-5.0) L 12/15/16 06:51 Albumin (PEP) 2.5 g/dL (3.8-4.8) L 12/07/16 16:45 Globulin 3.2 gm/dL (2.2-3.9) 12/15/16 06:51 Albumin/Globulin Ratio 0.8 (1.0-2.1) L 12/15/16 06:51 Hfscs-8-Ggopgwemq 0.5 g/dL (0.2-0.3) H 12/07/16 16:45 Gilgc-3-Upoocvrkf 1.2 g/dL (0.5-0.9) H 12/07/16 16:45 Hwnm-8-Skhumsfg 0.4 g/dL (0.4-0.6) 12/07/16 16:45 Deaf-2-Hlcrvgpb 0.5 g/dL (0.2-0.5) 12/07/16 16:45 Gamma Globulins 0.7 g/dL (0.8-1.7) L 12/07/16 16:45 Abnorm Protein Band 1 TEST NOT PERFORMED 12/07/16 16:45 Abnorm Protein Band 2 TEST NOT PERFORMED 12/07/16 16:45 Abnorm Protein Band 3 TEST NOT PERFORMED 12/07/16 16:45 Aldolase 2.8 U/L (<=8.1) 12/13/16 11:18 Angiotensin Convert Enz <7 U/L (9-67) L 12/13/16 11:18 Free T4 1.52 ng/dL (0.78-2.19) 12/13/16 11:18 TSH 3rd Generation 0.75 mIU/L (0.46-4.68) 12/13/16 11:18 PTH Intact Whole Molec 220 pg/mL (14-64) H 12/07/16 08:03 Urine Color Yellow (YELLOW) 12/07/16 12:09 Urine Clarity Hazy (Clear) 12/07/16 12:09 Urine pH 5.0 (5.0-8.0) 12/07/16 12:09 Ur Specific [place] 1.014 (1.003-1.030) 12/07/16 12:09 Urine Protein Negative mg/dL (NEGATIVE) 12/07/16 12:09 Urine Glucose (UA) Normal mg/dL (Normal) 12/07/16 12:09 Urine Ketones Negative mg/dL (NEGATIVE) 12/07/16 12:09 Urine Blood 1+ (NEGATIVE) H 12/07/16 12:09 Urine Nitrate Negative (NEGATIVE) 12/07/16 12:09 Urine Bilirubin Negative (NEGATIVE) 12/07/16 12:09 Urine Urobilinogen Normal mg/dL (0.2-1.0) 12/07/16 12:09 Ur Leukocyte Esterase Trace Monica/uL (Negative) 12/07/16 12:09 Urine WBC (Auto) 4 /hpf (0-5) 12/07/16 12:09 Urine RBC (Auto) 9 /hpf (0-3) H 12/07/16 12:09 Ur Squamous Epith Cells 2 /hpf (0-5) 12/07/16 12:09 Hyaline Casts 11-20 /lpf (0-2) H 12/07/16 12:09 Ur Random Sodium 96 mmol/L 12/09/16 18:43 DARREN & SPEP Interp See note 12/07/16 16:45 Thyroperoxidase Ab <1 IU/mL (<9) 12/13/16 11:18 - Hospital Course Hospital Course: Chief complaint: General weakness. History present illness: 80-year-old female with history of hypertension high cholesterol osteoarthritis came to the emergency room from my office with increasing symptoms of weakness, not feeling well, bilateral flank pain, and leg pain, not eating well, nausea, and episodes of vomiting. Patient is having the symptoms for almost to 2 weeks, not taking anything by mouth much. But she is taking her blood pressure medications regularly. She's complaining of increasing weakness, tiredness, not able to walk. mild symptoms of shortness of breath also noted, associate with the some palpitation. Complaining of bilateral leg weakness, and no fever or chills noted. She is making urine, but the reduced amount at this time. PMH 79-year-old female with history of hypertension, hypercholesterolemia, osteoarthritis came to the office for a routine medical examination. FATHER is . He at the age of 80. It was a natural . He had cancer, prostate. MOTHER is . She at the age of 74. It was a natural . She had heart disease and stroke. Smoker nonalcoholic and she is giving herself, and she is able to manage her activities and she is using walker Uncontributory Review of systems: Patient denies any headache or visual symptoms, no chest pain or shortness of breath, minimal cough occasionally noted, postnasal drip occasionally present, denies any nausea vomiting, no other major systemic symptoms On examination: Temp Pulse Resp BP Pulse Ox 98 F 100 H 20 113/69 95 12/06/16 16:48 12/06/16 17:37 12/06/16 16:48 12/06/16 16:48 12/06/16 16:48 HEENT PERRLA, neck supple No thyromegaly was noted and no cervical adenopathy noted Chest bilateral good air entry, no wheezing or rales noted CVS regular heart sound, no murmur Abdomen soft and no organomegaly Extremeties bilateral swelling. [employer] alert awake oriented x3 no functional neurological deficit EKG done today showing evidence of atrial fibrillation with rapid ventricular rate. In the emergency room labs reviewed in Patient is having elevated BUN/creatinine, which is new currently. Also mild acidosis noted. Anion gap acidosis noted. CBC is nonspecific. But anemia cannot be ruled out. Urinalysis is currently pending. Patient also had a renal sonogram pending at this time. Assessment/recommendation: 79-year-old female with history of hypertension, hypercholesteremia, osteoarthritis came to the office for a routine visit immediatly sent to the emergency room. Currently having acute new-onset atrial fibrillation, and associated with rapid ventricular rate. She is also having severe acute renal insufficiency, unclear etiology. Dehydration possible. Currently urinalysis pending. We will get the CT scan of the abdomen. IV fluid IV hydration renal consultation, cardiology evaluation. DVT prophylaxis at this time. 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 The echo could examined pending. Discussed with family and will follow the patient spoke to pt son Course in the Hospital: Patient was hospitalized. Acute renal insufficiency was identified. The cause was unclear. Atrial fibrillation with rapid ventricular rate. Cardiology evaluation, nephrology evaluation was called. Patient was closely monitored in the telemetry. IV fluid resuscitation was started. Patient slowly renal function improved. Patient also started feeling slightly better. Patient persistently having atrial fibrillation. Patient has a multiple risk factors for atrial fibrillation, suggested to start anticoagulation. Eliquis 2.5 mg twice a day started, complication, and side effects able to medication, including bleeding discussed with the patient, and also patient's a daughter. The the benefits outweighs the risk. They agree for anticoagulation. On the low dose. The full dose will be resumed once the renal function is completely normal. Patient. Meanwhile started having significant weakness in the legs. Urology avulsion was called. She underwent a brain MRI, and a lumbosacral MRI. Brain MRI is negative. Lumbosacral MRI showing evidence of multiple disc disease, facet joint arthritis. Neurologist and discussed with the patient regarding the lumbar puncture to rule out a demyelinating disease, but patient did not want to do it. Also patient is on anticoagulation. Patient started showing some improvement in her walking. Able to stand and to take a few steps with physical therapy. Discussed with the patient, she will be discharged to rehabitation. Will follow up as an outpatient. Medications reviewed. Discharge Exam - Head Exam Head Exam: ATRAUMATIC, NORMAL INSPECTION Discharge Plan - Follow Up Plan Condition: STABLE Disposition: HOME/ ROUTINE Instructions: Atrial Fibrillation (DC), Heart Healthy Diet (DC), Hypertension ( DC) Additional Instructions: PLACE UNDER THE SERVICE OF DR. REDMAN WHILE AT [facility] FOR REHAB---CALL UPON ARRIVAL TO FACILITY FOR ADMITTING ORDERS. CONTINUE MEDICATIONS PER THE MED REC FORM--CHANGES TO BE MADE BY . FOR ANY OTHER ORDERS OR CONCERNS, CONTACT DR. REDMAN'S OFFICE. Referrals: Dell Sharma MD [Staff Provider] - Puneet Rhodes MD [Staff Provider] - Kolby Redman MD [Staff Provider] -
[2016-12-18 08:46] LABS: 18 KD (IGG) BAND Nonreactive; 23 KD (IGG) BAND Nonreactive; 23 KD (IGM) BAND Nonreactive; 28 KD (IGG) BAND Nonreactive; 30 KD (IGG) BAND Nonreactive; 39 KD (IGG) BAND Nonreactive; 39 KD (IGM) BAND Nonreactive; 41 KD (IGG) BAND Nonreactive; 41 KD (IGM) BAND Nonreactive; 45 KD (IGG) BAND Nonreactive; 58 KD (IGG) BAND Nonreactive; 66 KD (IGG) BAND Nonreactive; 93 KD (IGG) BAND Nonreactive; LYME DISEASE INTERP (IGG) Negative (Negative)
== END 2016-12-15 19:35 | disposition home or self-care (01) | DRG 309 ==
LOC: C.ER 12:29 → C.9E 14:33 → C.5T 15:20 → C.6T 12-10 22:39
PROVIDERS: ADMIT Internal Medicine; ATTEND Internal Medicine
DX: I48.91 Unspecified atrial fibrillation (principal); N17.9 Acute kidney failure, unspecified; E86.0 Dehydration; F03.90 Unspecified dementia, unspecified severity, without behavioral disturbance, psychotic disturbance, mood disturbance, and anxiety; N18.3 Chronic kidney disease, stage 3 (moderate); N28.9 Disorder of kidney and ureter, unspecified; M19.90 Unspecified osteoarthritis, unspecified site; I12.9 Hypertensive chronic kidney disease with stage 1 through stage 4 chronic kidney disease, or unspecified chronic kidney disease; E78.00 Pure hypercholesterolemia, unspecified

== ENCOUNTER 2017-05-10 13:20 | Inpatient (IN) | payer MEDICARE ==
--- NOTE | 2017-05-10 13:33 | C.PDOC ---
History Of Present Illness 81 y/o female with PMHx of A fib and on Coumadin sent to ED from home by EMS because patient was found lethargic on floor as per son. Son states patient was unreachable this morning. As pe EMS upon arrival to patient's home patient had 1 min seizure and was given 2mg of Ativan. Upon arrival to ED patient is somulent. HPI is limited secondary to patient's condition. son later arrives states pt had "cold symtpoms" for last few days. Time Seen by Provider: 05/10/17 13:30 Chief Complaint (Nursing): Altered Mental Status History Per: EMS, Family History/Exam Limitations: Clinical Condition Onset/Duration Of Symptoms: Hrs Past Medical History Reviewed: Historical Data, Nursing Documentation, Vital Signs Vital Signs: Last Vital Signs Temp 99 F 05/14/17 12:00 Pulse 89 05/14/17 12:07 Resp 14 05/14/17 12:07 BP 164/87 H 05/14/17 12:07 Pulse Ox 95 05/14/17 12:07 - Medical History PMH: Atrial Fibrillation (new onset ), HTN, Hypercholesterolemia Surgical History: Tonsillectomy Family History: States: No Known Family Hx - Social History Hx Tobacco Use: No Hx Alcohol Use: No Hx Substance Use: No - Immunization History Hx Influenza Vaccination: Yes Review Of Systems Review Of Systems: ROS cannot be obtained secondary to pt's inabilty to answer questions. Physical Exam - Physical Exam Appears: No Acute Distress, Other (elderly female, awake, moving all extremtiies , no focal deficit, non verbal. w/d to painful stimuli) Skin: Normal Color, Warm, Dry Eye(s): bilateral: Normal Inspection, PERRL, EOMI Nose: Normal Throat: Normal Neck: Normal Cardiovascular: Rhythm Regular Respiratory: Normal Breath Sounds Gastrointestinal/Abdominal: Normal Exam Back: Normal Inspection Extremity: Normal ROM Neurological/Psych: Other (somulent, arousable to painful stimuli, no focal deficit. moving all extremities. ) ED Course And Treatment - Laboratory Results Result Diagrams: 05/13/17 06:38 05/13/17 06:39 ECG: Interpreted By Me, Viewed By Me ECG Rhythm: Atrial Fibrillation Rate From EC (BPM) O2 Sat by Pulse Oximetry: 95 (RA) Pulse Ox Interpretation: Normal Medical Decision Making Medical Decision Making: Progress: 1625: Patient evaluated by Dr. Fontaine states patient is not an icu candidate, patient will be admitted to Tele-obs Disposition - Disposition Disposition: HOSPITALIZED Disposition Time: 12:00 Condition: FAIR - Clinical Impression Clinical Impression: Seizure, Altered mental status, Lactic acidosis - Scribe Statement The provider has reviewed the documentation as recorded by the Ivonibpavel Stephenson All medical record entries made by the Scribe were at my direction and personally dictated by me. I have reviewed the chart and agree that the record accurately reflects my personal performance of the history, physical exam, medical decision making, and the department course for this patient. I have also personally directed, reviewed, and agree with the discharge instructions and disposition. Decision To Admit - Pt Status Changed To: Hospital Disposition Of: Inpatient - Admit Certification Admit to Inpatient:: After my assessment, the patient will require hospitalization for at least two midnights. This is because of the severity of symptoms shown, intensity of services needed, and/or the medical risk in this patient being treated as an outpatient. - InPatient: Physician Admission Certification:: needs admission for repeat seizure , ams - . Bed Request Type: Telemetry Admitting Physician: Kolby Redman Patient Diagnosis: Seizure, Altered mental status, Lactic acidosis
[2017-05-10 13:50] LABS: BASO % 0.3 % (0.0-2.0); HEMOGLOBIN 11.8 g/dL (11.0-16.0); LYMPH # 0.8 K/uL (1.0-4.3); LYMPH % 8.1 % (20.0-40.0); MEAN CORPUSCULAR HEMOGLOBIN 27.3 pg (27.0-31.0); MEAN CORPUSCULAR HGB CONC 32.1 g/dL (33.0-37.0); MEAN PLATELET VOLUME 8.7 fL (7.2-11.7); MONO # 0.4 K/uL (0.0-0.8); MONO % 4.3 % (0.0-10.0); NEUT # 9.1 K/uL (1.8-7.0); NEUT % 87.3 % (50.0-75.0); PLATELET COUNT 258 K/uL (130-400); RBC 4.34 Mil/uL (3.80-5.20); RED CELL DISTRIBUTION WIDTH 18.1 % (11.5-14.5); WHITE BLOOD COUNT 10.5 K/uL (4.8-10.8)
[2017-05-10 14:01] LABS: ALB/GLOB RATIO 1.2 (1.0-2.1); ALBUMIN 4.1 g/dL (3.5-5.0); ALT/SGPT 24 U/L (9-52); AST/SGOT 29 U/L (14-36); BLOOD UREA NITROGEN 17 mg/dL (7-17); CALCIUM 8.7 mg/dl (8.6-10.4); GFR AFRICAN-AMERICAN > 60; GFR NON-AFRICAN AMERICAN 53
[2017-05-10 14:02] LABS: INR 1.2
[2017-05-10 14:14] LABS: VENOUS BLOOD GAS BASE EXCESS -5.6 mmol/L (0.0-2.0); VENOUS BLOOD GAS PCO2 45 mmHg (40-60); VENOUS BLOOD GAS PO2 38 mm/Hg (30-55); VENOUS BLOOD PH 7.28 (7.32-7.43)
[2017-05-10] MEDS ORDERED: Sodium Chloride 0.9% 1,000 ML IV ONE (14:15)
[2017-05-10] MEDS ORDERED: cefTRIAXone IV 1 gm in Dextros 50 ML IVPB ONE ×2 (14:21→15:00)
--- NOTE | 2017-05-10 14:48 | CT ---
PROCEDURE: CT HEAD WITHOUT CONTRAST. HISTORY: seizure COMPARISON: Noncontrast brain MRI performed 12/13/16 TECHNIQUE: Axial computed tomography images were obtained through the head/brain without intravenous contrast. Radiation dose: Total exam DLP = 1899.63 mGy-cm. This CT exam was performed using one or more of the following dose reduction techniques: Automated exposure control, adjustment of the mA and/or kV according to patient size, and/or use of iterative reconstruction technique. FINDINGS: HEMORRHAGE: No intracranial hemorrhage. BRAIN: Diffuse atrophy with prominence of the ventricles and sulci noted. No mass effect or edema. Intracranial atherosclerosis. Scattered periventricular and subcortical white matter hypodensities, which are nonspecific, but often seen with chronic microvascular ischemic disease. Please note that MRI with diffusion imaging is more sensitive in the detection of acute ischemic event. VENTRICLES: No hydrocephalus. CALVARIUM: Unremarkable. PARANASAL SINUSES: Mucosal thickening bilateral maxillary sinuses. MASTOID AIR CELLS: Unremarkable as visualized. No inflammatory changes. OTHER FINDINGS: None. IMPRESSION: Generalized atrophy. Nonspecific white matter changes. Mucosal thickening, bilateral maxillary sinuses.
[2017-05-10] MEDS ORDERED: Sodium Chloride 0.9% 1,000 ML ONE (14:54)
[2017-05-10 14:57] LABS: ANISOCYTOSIS SLIGHT; LYMPHOCYTE 10 % (20-40); MONOCYTE 2 % (0-10); NEUTROPHIL 88 % (50-75); OVALOCYTES SLIGHT; PLATELET ESTIMATE NORMAL (NORMAL); TOTAL CELLS COUNTED 100
[2017-05-10 15:01] LABS: URINE BACTERIA OCC (<OCC); URINE BILIRUBIN NEGATIVE (NEGATIVE); URINE BLOOD 2+ (NEGATIVE); URINE CLARITY Clear (Clear); URINE COLOR Yellow (YELLOW); URINE GLUCOSE (UA) NORMAL (Normal); URINE LEUKOCYTE ESTERASE NEG Leu/uL (Negative); URINE NITRATE NEGATIVE (NEGATIVE); URINE PROTEIN 2+ mg/dL (NEGATIVE); URINE UROBILINOGEN NORMAL mg/dL (0.2-1.0)
--- NOTE | 2017-05-10 15:17 | RAD ---
HISTORY: chest pain COMPARISON: Chest x-ray performed 12/09/16 TECHNIQUE: Chest, one view. FINDINGS: LUNGS: Mild bibasilar atelectasis. Probable mild pulmonary venous congestion. Please note that chest x-ray has limited sensitivity for the detection of pulmonary masses. PLEURA: No significant pleural effusion identified. No definite pneumothorax . CARDIOVASCULAR: Cardiomegaly. Atherosclerotic calcifications of the aorta. OSSEOUS STRUCTURES: Degenerative changes. VISUALIZED UPPER ABDOMEN: Unremarkable. OTHER FINDINGS: None. IMPRESSION: Mild bibasilar atelectasis. Probable mild pulmonary venous congestion. Cardiomegaly.
[2017-05-10] MEDS ORDERED: Vancomycin 1 gm/NS 200 ml 1 GM/200 ML BAG IVPB ONE (16:00)
[2017-05-10] MEDS: levETIRAcetam 500 MG in Sodium Chloride 0.9% 100 ML IVPB SCH (17:08)
[2017-05-10 17:14] LABS: VENOUS BLOOD GAS BASE EXCESS -0.4 mmol/L (0.0-2.0); VENOUS BLOOD GAS PCO2 48 mmHg (40-60); VENOUS BLOOD GAS PO2 32 mm/Hg (30-55); VENOUS BLOOD PH 7.34 (7.32-7.43)
[2017-05-10] MEDS ORDERED: Sodium Chloride 0.9% 1,000 ML IV SCH (17:15)
[2017-05-10 17:41] LABS: VENOUS BLOOD GAS BASE EXCESS -0.1 mmol/L (0.0-2.0); VENOUS BLOOD GAS PCO2 52 mmHg (40-60); VENOUS BLOOD GAS PO2 30 mm/Hg (30-55); VENOUS BLOOD PH 7.32 (7.32-7.43)
--- NOTE | 2017-05-10 19:12 | CP.PCM.CON ---
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 AGREE ILAN AND MIREYA ELIQUIS MRI / EEG /CAROTID Past Patient History - Infectious Disease Hx of Infectious Diseases: None - Past Medical History & Family History Past Medical History?: Yes - Past Social History Smoking Status: Never Smoked - CARDIAC Hx Atrial Fibrillation: Yes (new onset ) Hx Hypercholesterolemia: Yes Hx Hypertension: Yes - MUSCULOSKELETAL/RHEUMATOLOGICAL Hx Falls: No - PSYCHIATRIC Hx Substance Use: No - SURGICAL HISTORY Hx Tonsillectomy: Yes - ANESTHESIA Hx Anesthesia: Yes Hx Anesthesia Reactions: No Meds Allergies/Adverse Reactions: Allergies Allergy/AdvReac Type Severity Reaction Status Date / Time No Known Allergies Allergy Verified 05/10/17 13:31 - Medications Medications: Current Medications Apixaban (Eliquis) 2.5 mg PO BID PANCHO Docusate Sodium (Colace) 100 mg PO BID PANCHO Levetiracetam 500 mg/ Sodium (Chloride) 105 mls @ 420 mls/hr IVPB Q12H PANCHO Last Admin: 05/10/17 17:08 Dose: 420 mls/hr Sodium Chloride (Sodium Chloride 0.9%) 1,000 mls @ 75 mls/hr IV .[id number] PANCHO Last Admin: 05/10/17 17:17 Dose: 75 mls/hr Diltiazem HCl 125 mg/ Sodium (Chloride) 125 mls @ 5 mls/hr IV .Q24H PANCHO; 5 MG/ HR PRN Reason: Protocol Metoprolol Tartrate (Lopressor) 50 mg PO BID PANCHO Pantoprazole Sodium (Protonix Inj) 40 mg IVP DAILY PANCHO Results - Vital Signs Recent Vital Signs: Last Vital Signs Temp 96.6 F L 05/10/17 14:41 Pulse 108 H 05/10/17 18:42 Resp 18 05/10/17 18:42 BP 178/86 H 05/10/17 18:42 Pulse Ox 97 05/10/17 18:42 - Labs Result Diagrams: 05/10/17 13:40 05/10/17 13:40 Labs: Laboratory Results - last 24 hr 05/10/17 05/10/17 05/10/17 13:40 13:40 13:40 WBC 10.5 D RBC 4.34 Hgb 11.8 D Hct 36.9 MCV 85.0 MCH 27.3 MCHC 32.1 L RDW 18.1 H Plt Count 258 MPV 8.7 Neut % (Auto) 87.3 H Lymph % (Auto) 8.1 L [place] % (Auto) 4.3 Eos % (Auto) 0.0 Baso % (Auto) 0.3 Neut # 9.1 H Lymph # 0.8 L [place] # 0.4 Eos # 0.0 Baso # 0.0 Neutrophils % (Manual) 88 H Lymphocytes % (Manual) 10 L Monocytes % (Manual) 2 Platelet Estimate Normal Anisocytosis (manual) Slight Ovalocytes Slight PT 13.0 H INR 1.2 APTT 29 Puncture Site pO2 Saurbah Test VBG pH VBG pCO2 VBG HCO3 VBG Total CO2 VBG O2 Sat (Calc) VBG Base Excess VBG Potassium Glucose Lactate Crit Value Called To Crit Value Called By Crit Value Read Back Blood Gas Notified Time Sodium 134 Potassium 3.6 Chloride 99 Carbon Dioxide 18 L Anion Gap 20 BUN 17 Creatinine 1.0 Est GFR ( Amer) > 60 Est GFR (Non-Af Amer) 53 Random Glucose 192 H Calcium 8.7 Total Bilirubin 0.7 AST 29 ALT 24 Alkaline Phosphatase 83 Total Creatine Kinase 476 H Troponin I 0.0510 Total Protein 7.5 Albumin 4.1 Globulin 3.4 Albumin/Globulin Ratio 1.2 Venous Blood Potassium Urine Color Urine Clarity Urine pH Ur Specific [place] Urine Protein Urine Glucose (UA) Urine Ketones Urine Blood Urine Nitrate Urine Bilirubin Urine Urobilinogen Ur Leukocyte Esterase Urine WBC (Auto) Urine RBC (Auto) Urine Bacteria Influenza Typ A,B (EIA) Blood Type Antibody Screen 05/10/17 05/10/17 05/10/17 14:08 14:09 14:45 WBC RBC Hgb Hct MCV MCH MCHC RDW Plt Count MPV Neut % (Auto) Lymph % (Auto) [place] % (Auto) Eos % (Auto) Baso % (Auto) Neut # Lymph # [place] # Eos # Baso # Neutrophils % (Manual) Lymphocytes % (Manual) Monocytes % (Manual) Platelet Estimate Anisocytosis (manual) Ovalocytes PT INR APTT Puncture Site pO2 38 Saurabh Test VBG pH 7.28 L VBG pCO2 45 VBG HCO3 19.6 VBG Total CO2 22.5 VBG O2 Sat (Calc) 72.3 H VBG Base Excess -5.6 L VBG Potassium 3.7 Glucose 205 H Lactate 6.0 H* Crit Value Called To Dr paulette ashton Crit Value Called By Anju 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 antique furniture reproducer Crit Value Read Back Y Blood Gas Notified Time 1415 Sodium 137.0 Potassium Chloride 105.0 Carbon Dioxide Anion Gap BUN Creatinine Est GFR ( Amer) Est GFR (Non-Af Amer) Random Glucose Calcium Total Bilirubin AST ALT Alkaline Phosphatase Total Creatine Kinase Troponin I Total Protein Albumin Globulin Albumin/Globulin Ratio Venous Blood Potassium 3.7 Urine Color Urine Clarity Urine pH Ur Specific [place] Urine Protein Urine Glucose (UA) Urine Ketones Urine Blood Urine Nitrate Urine Bilirubin Urine Urobilinogen Ur Leukocyte Esterase Urine WBC (Auto) Urine RBC (Auto) Urine Bacteria Influenza Typ A,B (EIA) Negative for flu a/b Blood Type A POSITIVE Antibody Screen Negative 05/10/17 05/10/17 05/10/17 14:51 17:00 17:35 WBC RBC Hgb Hct MCV MCH MCHC RDW Plt Count MPV Neut % (Auto) Lymph % (Auto) [place] % (Auto) Eos % (Auto) Baso % (Auto) Neut # Lymph # [place] # Eos # Baso # Neutrophils % (Manual) Lymphocytes % (Manual) Monocytes % (Manual) Platelet Estimate Anisocytosis (manual) Ovalocytes PT INR APTT Puncture Site Vein pO2 32 30 Saurabh Test Na VBG pH 7.34 7.32 VBG pCO2 48 52 VBG HCO3 23.5 23.6 VBG Total CO2 28.4 H VBG O2 Sat (Calc) 62.3 58.2 VBG Base Excess -0.4 L -0.1 L VBG Potassium 3.6 Glucose 139 H Lactate 1.8 Crit Value Called To Crit Value Called By Crit Value Read Back Blood Gas Notified Time Sodium 139.0 Potassium Chloride 106.0 Carbon Dioxide Anion Gap BUN Creatinine Est GFR ( Amer) Est GFR (Non-Af Amer) Random Glucose Calcium Total Bilirubin AST ALT Alkaline Phosphatase Total Creatine Kinase Troponin I Total Protein Albumin Globulin Albumin/Globulin Ratio Venous Blood Potassium 3.6 Urine Color Yellow Urine Clarity Clear Urine pH 5.0 Ur Specific [place] 1.017 Urine Protein 2+ H Urine Glucose (UA) Normal Urine Ketones 1+ H Urine Blood 2+ H Urine Nitrate Negative Urine Bilirubin Negative Urine Urobilinogen Normal Ur Leukocyte Esterase Neg Urine WBC (Auto) 1 Urine RBC (Auto) 6 H Urine Bacteria Occ H Influenza Typ A,B (EIA) Blood Type Antibody Screen
[2017-05-10 20:10] LABS: MAGNESIUM 1.6 mg/dL (1.6-2.3); PROLACTIN 20.6 ng/mL (3.0-18.9)
--- NOTE | 2017-05-10 21:09 | CP.PCM.HP ---
History of Present Illness - History of Present Illness History of Present Illness: Abdomen: New onset seizure activities History of present illness: 81-year-old female with history of hypertension, hypercholesterolemia, osteoarthritis, atrial fibrillation, renal insufficiency on anticoagulation brought in by the ambulance to the emergency room with new onset seizure activities. According to the family, patient was having some amount of cough and cold for 3 days duration, and started having some cough but no fever noted. Last night the patient's son was talking on the phone to her, and she was fine at the time, she did not have any major complaints. Today patient's son was trying to reach her by phone, but there was no answer, and there was a busy signal. He was very concerned, and he drove to her house, she was not able to open the door, but with the help of super was able to open the door, and she was found to have lying on the floor, slumped over the bed. Immediately called ambulance. Upon ambulance arrival, she was responding to the ems people. She was following simple commands. She was placed on the stretcher, and checking the blood pressure she started having tonic-clonic seizure activities, at the time I spoke to the ambulance on the phone. Patient was immediately taken to the [facility] emergency room, and she was given Ativan by the EMS. In the emergency room patient was not responding, she is only moaning. She was tachycardic. High blood pressure noted. Immediately patient was taken to the CAT scan, but nonspecific CT scan. Again patient continues to have agitated, and is trying to get out off the bed, confused, and it given another dose of Ativan. Currently patient is somewhat sleepy, responding. The family is at bedside, patient is restless, agitated at times. Tachycardic Tachypneic. Past medical history: Hypertension, high cholesterol, osteoarthritis, atrial fibrillation, renal insufficiency Allergies: No known drug allergies Personal history: ex smoker in the past, nonalcoholic. lives by herself Surgical history none Review of systems: Patient has no evidence of trauma But currently patient is somewhat sleepy drowsy. She had episodes of cough and cold, upper respiratory tract infection. Currently, and agitated at times. Vital signs reviewed No neck vein distention noted Chest good air entry bilaterally, no wheezing or rales noted CVS regular heart sound, no murmur noted Abdomen soft, nontender. 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 Patient's labs revealed Elevated lactate, CPK level noted. CT of the head showing no evidence of any acute bleed Chest x-ray nonspecific EKG atrial fibrillation with rapid ventricular rate Lipid lactate normalized Assessment and recognition: 80-year-old female with a history of hypertension, high cholesterol, osteoarthritis, atrial fibrillation. Now having new onset seizure activities. The source is unclear. Patient has no nuchal rigidity, no evidence of fever. Less likely meningitis. But covered with antibiotic at this time. As the patient is on anticoagulation, lumbar puncture is not possible now. I spoke to the neurology evaluation and neurologist. Patient is currently on Keppra, antibiotic, IV fluid. Cardizem drip. We'll continue the anticoagulation for now. Discussed with family. Cardiology follow-up ICU evaluation. The patient Present on Admission - Present on Admission Any Indicators Present on Admission: No History of DVT/PE: No History of Uncontrolled Diabetes: No Urinary Catheter: No Decubitus Ulcer Present: No Past Patient History - Infectious Disease Hx of Infectious Diseases: None - Past Medical History & Family History Past Medical History?: Yes - Past Social History Smoking Status: Never Smoked - CARDIAC Hx Atrial Fibrillation: Yes (new onset ) Hx Hypercholesterolemia: Yes Hx Hypertension: Yes - MUSCULOSKELETAL/RHEUMATOLOGICAL Hx Falls: No - PSYCHIATRIC Hx Substance Use: No - SURGICAL HISTORY Hx Tonsillectomy: Yes - ANESTHESIA Hx Anesthesia: Yes Hx Anesthesia Reactions: No Meds Allergies/Adverse Reactions: Allergies Allergy/AdvReac Type Severity Reaction Status Date / Time No Known Allergies Allergy Verified 05/10/17 13:31 Results - Vital Signs Recent Vital Signs: Last Vital Signs Temp 96.6 F L 05/10/17 14:41 Pulse 98 H 05/10/17 20:45 Resp 18 05/10/17 20:45 BP 159/92 H 05/10/17 20:45 Pulse Ox 97 05/10/17 20:45 - Labs Result Diagrams: 05/10/17 13:40 05/10/17 13:40 Labs: Laboratory Results - last 24 hr 05/10/17 05/10/17 05/10/17 13:40 13:40 13:40 WBC 10.5 D RBC 4.34 Hgb 11.8 D Hct 36.9 MCV 85.0 MCH 27.3 MCHC 32.1 L RDW 18.1 H Plt Count 258 MPV 8.7 Neut % (Auto) 87.3 H Lymph % (Auto) 8.1 L [place] % (Auto) 4.3 Eos % (Auto) 0.0 Baso % (Auto) 0.3 Neut # 9.1 H Lymph # 0.8 L [place] # 0.4 Eos # 0.0 Baso # 0.0 Neutrophils % (Manual) 88 H Lymphocytes % (Manual) 10 L Monocytes % (Manual) 2 Platelet Estimate Normal Anisocytosis (manual) Slight Ovalocytes Slight PT 13.0 H INR 1.2 APTT 29 Puncture Site pO2 Saurabh Test VBG pH VBG pCO2 VBG HCO3 VBG Total CO2 VBG O2 Sat (Calc) VBG Base Excess VBG Potassium Glucose Lactate Crit Value Called To Crit Value Called By Crit Value Read Back Blood Gas Notified Time Sodium 134 Potassium 3.6 Chloride 99 Carbon Dioxide 18 L Anion Gap 20 BUN 17 Creatinine 1.0 Est GFR ( Amer) > 60 Est GFR (Non-Af Amer) 53 Random Glucose 192 H Calcium 8.7 Magnesium Total Bilirubin 0.7 AST 29 ALT 24 Alkaline Phosphatase 83 Total Creatine Kinase 476 H Troponin I 0.0510 Total Protein 7.5 Albumin 4.1 Globulin 3.4 Albumin/Globulin Ratio 1.2 Prolactin Venous Blood Potassium Urine Color Urine Clarity Urine pH Ur Specific [place] Urine Protein Urine Glucose (UA) Urine Ketones Urine Blood Urine Nitrate Urine Bilirubin Urine Urobilinogen Ur Leukocyte Esterase Urine WBC (Auto) Urine RBC (Auto) Urine Bacteria Influenza Typ A,B (EIA) Blood Type Antibody Screen 05/10/17 05/10/17 05/10/17 14:08 14:09 14:45 WBC RBC Hgb Hct MCV MCH MCHC RDW Plt Count MPV Neut % (Auto) Lymph % (Auto) [place] % (Auto) Eos % (Auto) Baso % (Auto) Neut # Lymph # [place] # Eos # Baso # Neutrophils % (Manual) Lymphocytes % (Manual) Monocytes % (Manual) Platelet Estimate Anisocytosis (manual) Ovalocytes PT INR APTT Puncture Site pO2 38 Saurabh Test VBG pH 7.28 L VBG pCO2 45 VBG HCO3 19.6 VBG Total CO2 22.5 VBG O2 Sat (Calc) 72.3 H VBG Base Excess -5.6 L VBG Potassium 3.7 Glucose 205 H Lactate 6.0 H* Crit Value Called To Dr paulette ashton Crit Value Called By Anju riley php mysql web developer Crit Value Read Back Y Blood Gas Notified Time 1415 Sodium 137.0 Potassium Chloride 105.0 Carbon Dioxide Anion Gap BUN Creatinine Est GFR ( Amer) Est GFR (Non-Af Amer) Random Glucose Calcium Magnesium Total Bilirubin AST ALT Alkaline Phosphatase Total Creatine Kinase Troponin I Total Protein Albumin Globulin Albumin/Globulin Ratio Prolactin Venous Blood Potassium 3.7 Urine Color Urine Clarity Urine pH Ur Specific [place] Urine Protein Urine Glucose (UA) Urine Ketones Urine Blood Urine Nitrate Urine Bilirubin Urine Urobilinogen Ur Leukocyte Esterase Urine WBC (Auto) Urine RBC (Auto) Urine Bacteria Influenza Typ A,B (EIA) Negative for flu a/b Blood Type A POSITIVE Antibody Screen Negative 05/10/17 05/10/17 05/10/17 14:51 17:00 17:35 WBC RBC Hgb Hct MCV MCH MCHC RDW Plt Count MPV Neut % (Auto) Lymph % (Auto) [place] % (Auto) Eos % (Auto) Baso % (Auto) Neut # Lymph # [place] # Eos # Baso # Neutrophils % (Manual) Lymphocytes % (Manual) Monocytes % (Manual) Platelet Estimate Anisocytosis (manual) Ovalocytes PT INR APTT Puncture Site Vein pO2 32 30 Saurabh Test Na VBG pH 7.34 7.32 VBG pCO2 48 52 VBG HCO3 23.5 23.6 VBG Total CO2 28.4 H VBG O2 Sat (Calc) 62.3 58.2 VBG Base Excess -0.4 L -0.1 L VBG Potassium 3.6 Glucose 139 H Lactate 1.8 Crit Value Called To Crit Value Called By Crit Value Read Back Blood Gas Notified Time Sodium 139.0 Potassium Chloride 106.0 Carbon Dioxide Anion Gap BUN Creatinine Est GFR ( Amer) Est GFR (Non-Af Amer) Random Glucose Calcium Magnesium Total Bilirubin AST ALT Alkaline Phosphatase Total Creatine Kinase Troponin I Total Protein Albumin Globulin Albumin/Globulin Ratio Prolactin Venous Blood Potassium 3.6 Urine Color Yellow Urine Clarity Clear Urine pH 5.0 Ur Specific [place] 1.017 Urine Protein 2+ H Urine Glucose (UA) Normal Urine Ketones 1+ H Urine Blood 2+ H Urine Nitrate Negative Urine Bilirubin Negative Urine Urobilinogen Normal Ur Leukocyte Esterase Neg Urine WBC (Auto) 1 Urine RBC (Auto) 6 H Urine Bacteria Occ H Influenza Typ A,B (EIA) Blood Type Antibody Screen 05/10/17 19:14 WBC RBC Hgb Hct MCV MCH MCHC RDW Plt Count MPV Neut % (Auto) Lymph % (Auto) [place] % (Auto) Eos % (Auto) Baso % (Auto) Neut # Lymph # [place] # Eos # Baso # Neutrophils % (Manual) Lymphocytes % (Manual) Monocytes % (Manual) Platelet Estimate Anisocytosis (manual) Ovalocytes PT INR APTT Puncture Site pO2 Saurabh Test VBG pH VBG pCO2 VBG HCO3 VBG Total CO2 VBG O2 Sat (Calc) VBG Base Excess VBG Potassium Glucose Lactate Crit Value Called To Crit Value Called By Crit Value Read Back Blood Gas Notified Time Sodium Potassium Chloride Carbon Dioxide Anion Gap BUN Creatinine Est GFR ( Amer) Est GFR (Non-Af Amer) Random Glucose Calcium Magnesium 1.6 Total Bilirubin AST ALT Alkaline Phosphatase Total Creatine Kinase Troponin I Total Protein Albumin Globulin Albumin/Globulin Ratio Prolactin 20.6 H Venous Blood Potassium Urine Color Urine Clarity Urine pH Ur Specific [place] Urine Protein Urine Glucose (UA) Urine Ketones Urine Blood Urine Nitrate Urine Bilirubin Urine Urobilinogen Ur Leukocyte Esterase Urine WBC (Auto) Urine RBC (Auto) Urine Bacteria Influenza Typ A,B (EIA) Blood Type Antibody Screen
[2017-05-10] MEDS: Sodium Chloride 0.9% 1,000 ML IV SCH (22:00)
--- NOTE | 2017-05-10 22:47 | CP.PCM.CON ---
History of Present Illness - History of Present Illness History of Present Illness: 81-year-old female with history of hypertension, hypercholesterolemia, osteoarthritis, atrial fibrillation, renal insufficiency on anticoagulation brought in by the ambulance to the emergency room after patient was found on the floor at living facility by the guard. Patient's son called mother who didn' t olive picker phone that triggered the concern. EMS found patient having seizure as per discussion with Dr. Jimenez who spoke to EMS. Patient was given 1mg iv ativan by ems and received 1mg iv twice in ER. Patient has been restless but lethargic in ER, would move all 4 ext, leaning more to the left, would answer questions most of the talk incomprehensible. CT negative. Patient in ER was clinically dry and also as per the lab work, as per the patient's daughter michael was last seen by her son on , and spoke to phone daily, patient probably had cold symptoms, as per family patient is unlikely take any medications for the cold on her own. Patient uses walker to walk at home. Patient was also noted in afib RVR and started on cardizem drip currently running at 5mg/hr, patient also empirically received abx in ER. PMH as above Allergies NKDA Social lives alone, no h/o alcoholism, smoking, drugs Family history not contributory Meds reviewed Review of Systems - Review of Systems All systems: reviewed and no additional remarkable complaints except (HPI) Past Patient History - Infectious Disease Hx of Infectious Diseases: None - Past Medical History & Family History Past Medical History?: Yes - Past Social History Smoking Status: Never Smoked Alcohol: None Drugs: Denies Home Situation {Lives}: Alone - CARDIAC Hx Atrial Fibrillation: Yes (new onset ) Hx Hypercholesterolemia: Yes Hx Hypertension: Yes - MUSCULOSKELETAL/RHEUMATOLOGICAL Hx Falls: No - PSYCHIATRIC Hx Substance Use: No - SURGICAL HISTORY Hx Tonsillectomy: Yes - ANESTHESIA Hx Anesthesia: Yes Hx Anesthesia Reactions: No Meds Allergies/Adverse Reactions: Allergies Allergy/AdvReac Type Severity Reaction Status Date / Time No Known Allergies Allergy Verified 05/10/17 13:31 - Medications Medications: Current Medications Apixaban (Eliquis) 2.5 mg PO BID PANCHO Docusate Sodium (Colace) 100 mg PO BID PANCHO Levetiracetam 500 mg/ Sodium (Chloride) 105 mls @ 420 mls/hr IVPB Q12H PANCHO Last Admin: 05/10/17 17:08 Dose: 420 mls/hr Diltiazem HCl 125 mg/ Sodium (Chloride) 125 mls @ 5 mls/hr IV .Q24H PANCHO; 5 MG/ HR PRN Reason: Protocol Last Admin: 05/10/17 19:27 Dose: 5 mg/hr, 5 mls/hr Ceftriaxone Sodium 1 gm/ (Sodium Chloride) 100 mls @ 100 mls/hr IVPB Q12H PANCHO Vancomycin/Sodium Chloride (Vancomycin 1 Gm/Ns 200 Ml) 1 gm in 200 mls @ 133 mls/hr IVPB Q24H PANCHO Stop: 05/16/17 04:01 Sodium Chloride (Sodium Chloride 0.9%) 1,000 mls @ 100 mls/hr IV .Q10H PANCHO Metoprolol Tartrate (Lopressor) 50 mg PO BID PANCHO Pantoprazole Sodium (Protonix Inj) 40 mg IVP DAILY PANCHO Physical Exam - Additional Findings Additional findings: * HEENT Neva, dry scally skin, of face, dry mucosa * Neck supple, not rigid * CVS irregular, a flutter on the monitor * Chest slight rattling in left base * PA soft, nt, bs present * Ext no edema, long nails in toes, peripheral pulses present, left elbow brusies * INFORMATION SECURITY ARCHITECT lethargic, moving all ext, incomprehensible speech * Skin very dry, reduced turgor. Results - Vital Signs Recent Vital Signs: Last Vital Signs Temp 96.6 F L 05/10/17 14:41 Pulse 98 H 05/10/17 20:45 Resp 18 05/10/17 20:45 BP 159/92 H 05/10/17 20:45 Pulse Ox 97 05/10/17 20:45 - Labs Result Diagrams: 05/10/17 13:40 05/10/17 13:40 Labs: Laboratory Results - last 24 hr 05/10/17 05/10/17 05/10/17 13:40 13:40 13:40 WBC 10.5 D RBC 4.34 Hgb 11.8 D Hct 36.9 MCV 85.0 MCH 27.3 MCHC 32.1 L RDW 18.1 H Plt Count 258 MPV 8.7 Neut % (Auto) 87.3 H Lymph % (Auto) 8.1 L [place] % (Auto) 4.3 Eos % (Auto) 0.0 Baso % (Auto) 0.3 Neut # 9.1 H Lymph # 0.8 L [place] # 0.4 Eos # 0.0 Baso # 0.0 Neutrophils % (Manual) 88 H Lymphocytes % (Manual) 10 L Monocytes % (Manual) 2 Platelet Estimate Normal Anisocytosis (manual) Slight Ovalocytes Slight PT 13.0 H INR 1.2 APTT 29 Puncture Site pO2 Saurabh Test VBG pH VBG pCO2 VBG HCO3 VBG Total CO2 VBG O2 Sat (Calc) VBG Base Excess VBG Potassium Glucose Lactate Crit Value Called To Crit Value Called By Crit Value Read Back Blood Gas Notified Time Sodium 134 Potassium 3.6 Chloride 99 Carbon Dioxide 18 L Anion Gap 20 BUN 17 Creatinine 1.0 Est GFR ( Amer) > 60 Est GFR (Non-Af Amer) 53 Random Glucose 192 H Calcium 8.7 Magnesium Total Bilirubin 0.7 AST 29 ALT 24 Alkaline Phosphatase 83 Total Creatine Kinase 476 H Troponin I 0.0510 Total Protein 7.5 Albumin 4.1 Globulin 3.4 Albumin/Globulin Ratio 1.2 Prolactin Venous Blood Potassium Urine Color Urine Clarity Urine pH Ur Specific [place] Urine Protein Urine Glucose (UA) Urine Ketones Urine Blood Urine Nitrate Urine Bilirubin Urine Urobilinogen Ur Leukocyte Esterase Urine WBC (Auto) Urine RBC (Auto) Urine Bacteria Influenza Typ A,B (EIA) Blood Type Antibody Screen 05/10/17 05/10/17 05/10/17 14:08 14:09 14:45 WBC RBC Hgb Hct MCV MCH MCHC RDW Plt Count MPV Neut % (Auto) Lymph % (Auto) [place] % (Auto) Eos % (Auto) Baso % (Auto) Neut # Lymph # [place] # Eos # Baso # Neutrophils % (Manual) Lymphocytes % (Manual) Monocytes % (Manual) Platelet Estimate Anisocytosis (manual) Ovalocytes PT INR APTT Puncture Site pO2 38 Saurabh Test VBG pH 7.28 L VBG pCO2 45 VBG HCO3 19.6 VBG Total CO2 22.5 VBG O2 Sat (Calc) 72.3 H VBG Base Excess -5.6 L VBG Potassium 3.7 Glucose 205 H Lactate 6.0 H* Crit Value Called To Dr paulette ashton Crit Value Called By Anju riley redipper Crit Value Read Back Y Blood Gas Notified Time 1415 Sodium 137.0 Potassium Chloride 105.0 Carbon Dioxide Anion Gap BUN Creatinine Est GFR ( Amer) Est GFR (Non-Af Amer) Random Glucose Calcium Magnesium Total Bilirubin AST ALT Alkaline Phosphatase Total Creatine Kinase Troponin I Total Protein Albumin Globulin Albumin/Globulin Ratio Prolactin Venous Blood Potassium 3.7 Urine Color Urine Clarity Urine pH Ur Specific [place] Urine Protein Urine Glucose (UA) Urine Ketones Urine Blood Urine Nitrate Urine Bilirubin Urine Urobilinogen Ur Leukocyte Esterase Urine WBC (Auto) Urine RBC (Auto) Urine Bacteria Influenza Typ A,B (EIA) Negative for flu a/b Blood Type A POSITIVE Antibody Screen Negative 05/10/17 05/10/17 05/10/17 14:51 17:00 17:35 WBC RBC Hgb Hct MCV MCH MCHC RDW Plt Count MPV Neut % (Auto) Lymph % (Auto) [place] % (Auto) Eos % (Auto) Baso % (Auto) Neut # Lymph # [place] # Eos # Baso # Neutrophils % (Manual) Lymphocytes % (Manual) Monocytes % (Manual) Platelet Estimate Anisocytosis (manual) Ovalocytes PT INR APTT Puncture Site Vein pO2 32 30 Saurabh Test Na VBG pH 7.34 7.32 VBG pCO2 48 52 VBG HCO3 23.5 23.6 VBG Total CO2 28.4 H VBG O2 Sat (Calc) 62.3 58.2 VBG Base Excess -0.4 L -0.1 L VBG Potassium 3.6 Glucose 139 H Lactate 1.8 Crit Value Called To Crit Value Called By Crit Value Read Back Blood Gas Notified Time Sodium 139.0 Potassium Chloride 106.0 Carbon Dioxide Anion Gap BUN Creatinine Est GFR ( Amer) Est GFR (Non-Af Amer) Random Glucose Calcium Magnesium Total Bilirubin AST ALT Alkaline Phosphatase Total Creatine Kinase Troponin I Total Protein Albumin Globulin Albumin/Globulin Ratio Prolactin Venous Blood Potassium 3.6 Urine Color Yellow Urine Clarity Clear Urine pH 5.0 Ur Specific [place] 1.017 Urine Protein 2+ H Urine Glucose (UA) Normal Urine Ketones 1+ H Urine Blood 2+ H Urine Nitrate Negative Urine Bilirubin Negative Urine Urobilinogen Normal Ur Leukocyte Esterase Neg Urine WBC (Auto) 1 Urine RBC (Auto) 6 H Urine Bacteria Occ H Influenza Typ A,B (EIA) Blood Type Antibody Screen 05/10/17 19:14 WBC RBC Hgb Hct MCV MCH MCHC RDW Plt Count MPV Neut % (Auto) Lymph % (Auto) [place] % (Auto) Eos % (Auto) Baso % (Auto) Neut # Lymph # [place] # Eos # Baso # Neutrophils % (Manual) Lymphocytes % (Manual) Monocytes % (Manual) Platelet Estimate Anisocytosis (manual) Ovalocytes PT INR APTT Puncture Site pO2 Saurabh Test VBG pH VBG pCO2 VBG HCO3 VBG Total CO2 VBG O2 Sat (Calc) VBG Base Excess VBG Potassium Glucose Lactate Crit Value Called To Crit Value Called By Crit Value Read Back Blood Gas Notified Time Sodium Potassium Chloride Carbon Dioxide Anion Gap BUN Creatinine Est GFR ( Amer) Est GFR (Non-Af Amer) Random Glucose Calcium Magnesium 1.6 Total Bilirubin AST ALT Alkaline Phosphatase Total Creatine Kinase Troponin I Total Protein Albumin Globulin Albumin/Globulin Ratio Prolactin 20.6 H Venous Blood Potassium Urine Color Urine Clarity Urine pH Ur Specific [place] Urine Protein Urine Glucose (UA) Urine Ketones Urine Blood Urine Nitrate Urine Bilirubin Urine Urobilinogen Ur Leukocyte Esterase Urine WBC (Auto) Urine RBC (Auto) Urine Bacteria Influenza Typ A,B (EIA) Blood Type Antibody Screen Assessment & Plan - Assessment and Plan (Free Text) Assessment: * New seizure * Clinically dry, also in labs hemoconcentration, increased albumin form baseline, suspected poor intake 1-2 days * Aflutter with rvr on cardizem drip, h/o same, on anticoagulation * Ambulatory dysfunction * H/o renal insufficiency Plan: * Supportive care * Seizure, aspiration precaution * Kepra stared and continued, prn ativan only for seizure * MRI, Carotid dopper, echo ordered by neurology * IVF * Will do CT of chest/abd/pelvis, to check for pna, any bleeding * Continue Eliquis * Spoke to family who will also check for any new medication at home including for recent cold symptoms. * See orders for detail.
--- NOTE | 2017-05-10 23:26 | CP.PCM.CON ---
History of Present Illness - History of Present Illness History of Present Illness: 81 F with hx of A Fib, HTN being admitted for seizure activity R/O CVA Check ECHO Past Patient History - Infectious Disease Hx of Infectious Diseases: None - Past Medical History & Family History Past Medical History?: Yes - Past Social History Smoking Status: Never Smoked Alcohol: None Drugs: Denies Home Situation {Lives}: Alone - CARDIAC Hx Atrial Fibrillation: Yes (new onset ) Hx Hypercholesterolemia: Yes Hx Hypertension: Yes - PULMONARY Hx Respiratory Disorders: No - NEUROLOGICAL Hx Neurological Disorder: Yes Hx Seizures: Yes (new onset) - HEENT Hx HEENT Problems: Yes Other/Comment: uses glasses - RENAL Hx Chronic Kidney Disease: Yes Other/Comment: renal insufficiency - ENDOCRINE/METABOLIC Hx Endocrine Disorders: No - HEMATOLOGICAL/ONCOLOGICAL Hx Blood Disorders: No - INTEGUMENTARY Hx Dermatological Problems: No - MUSCULOSKELETAL/RHEUMATOLOGICAL Hx Falls: No - GASTROINTESTINAL Hx Gastrointestinal Disorders: No - GENITOURINARY/GYNECOLOGICAL Hx Genitourinary Disorders: No - PSYCHIATRIC Hx Substance Use: No - SURGICAL HISTORY Hx Tonsillectomy: Yes - ANESTHESIA Hx Anesthesia: Yes Hx Anesthesia Reactions: No Meds Allergies/Adverse Reactions: Allergies Allergy/AdvReac Type Severity Reaction Status Date / Time No Known Allergies Allergy Verified 05/10/17 13:31 - Medications Medications: Current Medications Apixaban (Eliquis) 2.5 mg PO BID PANCHO Docusate Sodium (Colace) 100 mg PO BID PANCHO Levetiracetam 500 mg/ Sodium (Chloride) 105 mls @ 420 mls/hr IVPB Q12H PANCHO Last Admin: 05/10/17 17:08 Dose: 420 mls/hr Diltiazem HCl 125 mg/ Sodium (Chloride) 125 mls @ 5 mls/hr IV .Q24H PANCHO; 5 MG/ HR PRN Reason: Protocol Last Admin: 05/10/17 19:27 Dose: 5 mg/hr, 5 mls/hr Ceftriaxone Sodium 1 gm/ (Sodium Chloride) 100 mls @ 100 mls/hr IVPB Q12H PANCHO Vancomycin/Sodium Chloride (Vancomycin 1 Gm/Ns 200 Ml) 1 gm in 200 mls @ 133 mls/hr IVPB Q24H PANCHO Stop: 05/16/17 04:01 Sodium Chloride (Sodium Chloride 0.9%) 1,000 mls @ 100 mls/hr IV .Q10H PANCHO Metoprolol Tartrate (Lopressor) 50 mg PO BID [facility] Pantoprazole Sodium (Protonix Inj) 40 mg IVP DAILY [facility] Results - Vital Signs Recent Vital Signs: Last Vital Signs Temp 96.6 F L 05/10/17 14:41 Pulse 98 H 05/10/17 20:45 Resp 18 05/10/17 20:45 BP 159/92 H 05/10/17 20:45 Pulse Ox 97 05/10/17 20:45 - Labs Result Diagrams: 05/10/17 13:40 05/10/17 13:40 Labs: Laboratory Results - last 24 hr 05/10/17 05/10/17 05/10/17 13:40 13:40 13:40 WBC 10.5 D RBC 4.34 Hgb 11.8 D Hct 36.9 MCV 85.0 MCH 27.3 MCHC 32.1 L RDW 18.1 H Plt Count 258 MPV 8.7 Neut % (Auto) 87.3 H Lymph % (Auto) 8.1 L [place] % (Auto) 4.3 Eos % (Auto) 0.0 Baso % (Auto) 0.3 Neut # 9.1 H Lymph # 0.8 L [place] # 0.4 Eos # 0.0 Baso # 0.0 Neutrophils % (Manual) 88 H Lymphocytes % (Manual) 10 L Monocytes % (Manual) 2 Platelet Estimate Normal Anisocytosis (manual) Slight Ovalocytes Slight PT 13.0 H INR 1.2 APTT 29 Puncture Site pO2 Saurabh Test VBG pH VBG pCO2 VBG HCO3 VBG Total CO2 VBG O2 Sat (Calc) VBG Base Excess VBG Potassium Glucose Lactate Crit Value Called To Crit Value Called By Crit Value Read Back Blood Gas Notified Time Sodium 134 Potassium 3.6 Chloride 99 Carbon Dioxide 18 L Anion Gap 20 BUN 17 Creatinine 1.0 Est GFR ( Amer) > 60 Est GFR (Non-Af Amer) 53 Random Glucose 192 H Calcium 8.7 Magnesium Total Bilirubin 0.7 AST 29 ALT 24 Alkaline Phosphatase 83 Total Creatine Kinase 476 H Troponin I 0.0510 Total Protein 7.5 Albumin 4.1 Globulin 3.4 Albumin/Globulin Ratio 1.2 Prolactin Venous Blood Potassium Urine Color Urine Clarity Urine pH Ur Specific [place] Urine Protein Urine Glucose (UA) Urine Ketones Urine Blood Urine Nitrate Urine Bilirubin Urine Urobilinogen Ur Leukocyte Esterase Urine WBC (Auto) Urine RBC (Auto) Urine Bacteria Influenza Typ A,B (EIA) Blood Type Antibody Screen 05/10/17 05/10/17 05/10/17 14:08 14:09 14:45 WBC RBC Hgb Hct MCV MCH MCHC RDW Plt Count MPV Neut % (Auto) Lymph % (Auto) [place] % (Auto) Eos % (Auto) Baso % (Auto) Neut # Lymph # [place] # Eos # Baso # Neutrophils % (Manual) Lymphocytes % (Manual) Monocytes % (Manual) Platelet Estimate Anisocytosis (manual) Ovalocytes PT INR APTT Puncture Site pO2 38 Saurabh Test VBG pH 7.28 L VBG pCO2 45 VBG HCO3 19.6 VBG Total CO2 22.5 VBG O2 Sat (Calc) 72.3 H VBG Base Excess -5.6 L VBG Potassium 3.7 Glucose 205 H Lactate 6.0 H* Crit Value Called To Dr paulette ashton Crit Value Called By Anju riley environmental inspector Crit Value Read Back Y Blood Gas Notified Time 1415 Sodium 137.0 Potassium Chloride 105.0 Carbon Dioxide Anion Gap BUN Creatinine Est GFR ( Amer) Est GFR (Non-Af Amer) Random Glucose Calcium Magnesium Total Bilirubin AST ALT Alkaline Phosphatase Total Creatine Kinase Troponin I Total Protein Albumin Globulin Albumin/Globulin Ratio Prolactin Venous Blood Potassium 3.7 Urine Color Urine Clarity Urine pH Ur Specific [place] Urine Protein Urine Glucose (UA) Urine Ketones Urine Blood Urine Nitrate Urine Bilirubin Urine Urobilinogen Ur Leukocyte Esterase Urine WBC (Auto) Urine RBC (Auto) Urine Bacteria Influenza Typ A,B (EIA) Negative for flu a/b Blood Type A POSITIVE Antibody Screen Negative 05/10/17 05/10/17 05/10/17 14:51 17:00 17:35 WBC RBC Hgb Hct MCV MCH MCHC RDW Plt Count MPV Neut % (Auto) Lymph % (Auto) [place] % (Auto) Eos % (Auto) Baso % (Auto) Neut # Lymph # [place] # Eos # Baso # Neutrophils % (Manual) Lymphocytes % (Manual) Monocytes % (Manual) Platelet Estimate Anisocytosis (manual) Ovalocytes PT INR APTT Puncture Site Vein pO2 32 30 Saurabh Test Na VBG pH 7.34 7.32 VBG pCO2 48 52 VBG HCO3 23.5 23.6 VBG Total CO2 28.4 H VBG O2 Sat (Calc) 62.3 58.2 VBG Base Excess -0.4 L -0.1 L VBG Potassium 3.6 Glucose 139 H Lactate 1.8 Crit Value Called To Crit Value Called By Crit Value Read Back Blood Gas Notified Time Sodium 139.0 Potassium Chloride 106.0 Carbon Dioxide Anion Gap BUN Creatinine Est GFR ( Amer) Est GFR (Non-Af Amer) Random Glucose Calcium Magnesium Total Bilirubin AST ALT Alkaline Phosphatase Total Creatine Kinase Troponin I Total Protein Albumin Globulin Albumin/Globulin Ratio Prolactin Venous Blood Potassium 3.6 Urine Color Yellow Urine Clarity Clear Urine pH 5.0 Ur Specific [place] 1.017 Urine Protein 2+ H Urine Glucose (UA) Normal Urine Ketones 1+ H Urine Blood 2+ H Urine Nitrate Negative Urine Bilirubin Negative Urine Urobilinogen Normal Ur Leukocyte Esterase Neg Urine WBC (Auto) 1 Urine RBC (Auto) 6 H Urine Bacteria Occ H Influenza Typ A,B (EIA) Blood Type Antibody Screen 05/10/17 19:14 WBC RBC Hgb Hct MCV MCH MCHC RDW Plt Count MPV Neut % (Auto) Lymph % (Auto) [place] % (Auto) Eos % (Auto) Baso % (Auto) Neut # Lymph # [place] # Eos # Baso # Neutrophils % (Manual) Lymphocytes % (Manual) Monocytes % (Manual) Platelet Estimate Anisocytosis (manual) Ovalocytes PT INR APTT Puncture Site pO2 Saurabh Test VBG pH VBG pCO2 VBG HCO3 VBG Total CO2 VBG O2 Sat (Calc) VBG Base Excess VBG Potassium Glucose Lactate Crit Value Called To Crit Value Called By Crit Value Read Back Blood Gas Notified Time Sodium Potassium Chloride Carbon Dioxide Anion Gap BUN Creatinine Est GFR ( Amer) Est GFR (Non-Af Amer) Random Glucose Calcium Magnesium 1.6 Total Bilirubin AST ALT Alkaline Phosphatase Total Creatine Kinase Troponin I Total Protein Albumin Globulin Albumin/Globulin Ratio Prolactin 20.6 H Venous Blood Potassium Urine Color Urine Clarity Urine pH Ur Specific [place] Urine Protein Urine Glucose (UA) Urine Ketones Urine Blood Urine Nitrate Urine Bilirubin Urine Urobilinogen Ur Leukocyte Esterase Urine WBC (Auto) Urine RBC (Auto) Urine Bacteria Influenza Typ A,B (EIA) Blood Type Antibody Screen
--- NOTE | 2017-05-11 00:39 | CON ---
DATE: 05/10/2017 LOCATION: The patient is in the ER bed 7. NEUROLOGICAL PROBLEM: Possible seizures. CHIEF COMPLAINT: Patient was brought in by EMS with history of seizure activities and patient was found on the floor with change in mental status. From a neurological point of view, I was called in to evaluate her for further management. HISTORY OF PRESENT ILLNESS: Ms. Emely Goldstein is an 81-year-old right-handed female, who was in usual state of health as per her son who communicated to her yesterday; this morning when he was trying to reach her, phone was busy signals continuously, which is unusual to him. Immediately he rushed to see her. When he arrived, patient was found on the floor in between the wall and the couch. No evidence of bowel or bladder incontinence. At the scene, no history of blood stain around her around the floor. When the EMT came in, the patient did have generalized tonic-clonic activities. Immediately patient was given Ativan, the seizure was stabilized, and she was brought in to [facility] for further evaluation. PAST MEDICAL HISTORY: Hypertension, atrial fibrillation, dyslipidemia. PERSONAL HISTORY: Denies smoking or alcohol use. ALLERGIES: NO KNOWN ALLERGIES. REVIEW OF SYSTEMS: A 12-point systems have been reviewed. From neuro, new onset of seizures. MEDICATIONS: Diltiazem, Eliquis, metoprolol, Protonix. PHYSICAL EXAMINATION: VITAL SIGNS: Blood pressure 176/86, mean arterial pressure of 116, respiratory rate 16, temperature afebrile, pulse rate 108 - irregularly irregular. NECK: Supple no carotid bruits. HEART: Sounds tachycardia. EXTREMITIES: Left leg externally rotated. NEUROLOGIC EXAM: Patient is lethargic, moaning at times. Speech comes out with one-word answers. Eyes, mostly she kept her eyes closed. She is leaning to her left side in the bed. MENTAL STATUS EXAMINATION: She is lethargic. Speech is spontaneous. CRANIAL NERVE EXAMINATION: Visual field; responds to visual threats. Good corneal reflex. Good pupillary reflex with roving conjugate gaze. No facial sensory deficit. No facial asymmetry. Hearing is normal. Tongue moist; seems to be good gag. MOTOR EXAMINATION: She moves all four extremities against gravity; however, as stated, left leg is externally rotated. Still she moves her left leg. DEEP TENDON REFLEXES: Biceps, brachioradialis, triceps are absent. Plantars are equivocal response on left side, right side was upgoing. SENSORY EXAMINATION: Responds to pain symmetrically on both sides. COORDINATION: Gait is deferred at this time. LABORATORY DATA: CT of the head reviewed, no acute pathology noted except atrophy with periventricular ischemic changes. EKG shows atrial fibrillation. Blood workup: WBC 10 .5, hemoglobin 11.8, hematocrit 36.9, platelets 258. PT 18.0, INR 1.2, PTT 29. Sodium 134, potassium 3.6, chloride 99, bicarbonate 18, BUN 17, creatinine 1.0, GFR 53, glucose 192, calcium 8.7, bilirubin 0.7, CPK 476, lactate 6.0. Urinalysis: Shows 2+ proteinuria, 2+ hematuria. CONCLUSION: Ms. Emely Goldstein has been presenting with witnessed seizure activities, preceding that history of fall, presenting with mild left hemiparesis with risk factor of atrial fibrillation. Her weakness on the left side could be a new subcortical dysfunction on the right side versus post-seizure presentation of Scott's paresis. RECOMMENDATION: 1. MRI of the brain to rule out any structural cause. 2. EEG to rule out electrographic seizures. 3. Carotid Doppler. 4. Echocardiogram. 5. Seizure precaution. 6. I agree with Keppra 500 mg twice a day for now. 7. Continue Eliquis for now. Patient's condition will be discussed with her son and [id number]. Patient's condition will also be discussed with Dr. Redman personally. The patient will be followed up closely with you. Sloan Del Toro MD
[2017-05-11] MEDS: Vancomycin 1 gm/NS 200 ml 1 GM/200 ML BAG IVPB SCH (04:00)
[2017-05-11] MEDS: levETIRAcetam 500 MG in Sodium Chloride 0.9% 100 ML IVPB SCH ×2 (05:03→17:30)
[2017-05-11 06:42] LABS: BASO # 0.1 K/uL (0.0-0.2); BASO % 0.7 % (0.0-2.0); EOS % 0.3 % (0.0-4.0); HEMOGLOBIN 10.9 g/dL (11.0-16.0); LYMPH # 0.7 K/uL (1.0-4.3); LYMPH % 8.1 % (20.0-40.0); MEAN CELL VOLUME 84.9 fL (81.0-99.0); MEAN CORPUSCULAR HEMOGLOBIN 27.5 pg (27.0-31.0); MEAN CORPUSCULAR HGB CONC 32.4 g/dL (33.0-37.0); MEAN PLATELET VOLUME 8.4 fL (7.2-11.7); MONO # 0.7 K/uL (0.0-0.8); MONO % 8.3 % (0.0-10.0); NEUT # 7.3 K/uL (1.8-7.0); NEUT % 82.6 % (50.0-75.0); PLATELET COUNT 164 K/uL (130-400); RBC 3.94 Mil/uL (3.80-5.20); RED CELL DISTRIBUTION WIDTH 17.8 % (11.5-14.5); WHITE BLOOD COUNT 8.8 K/uL (4.8-10.8)
[2017-05-11 07:00] LABS: ALB/GLOB RATIO 1.1 (1.0-2.1); ALBUMIN 3.2 g/dL (3.5-5.0); ALT/SGPT 21 U/L (9-52); AST/SGOT 40 U/L (14-36); BLOOD UREA NITROGEN 16 mg/dL (7-17); CALCIUM 8.1 mg/dl (8.6-10.4); GFR AFRICAN-AMERICAN > 60; GFR NON-AFRICAN AMERICAN > 60; MAGNESIUM 1.5 mg/dL (1.6-2.3)
[2017-05-11 08:26] LABS: EOSINOPHIL 1 % (0-4); LYMPHOCYTE 14 % (20-40); MONOCYTE 11 % (0-10); NEUTROPHIL 74 % (50-75); TOTAL CELLS COUNTED 100
[2017-05-11 08:27] LABS: ANISOCYTOSIS SLIGHT; HYPOCHROMIC SLIGHT; MICROCYTOSIS SLIGHT; OVALOCYTES SLIGHT; PLATELET ESTIMATE NORMAL (NORMAL); POIKILOCYTOSIS SLIGHT
[2017-05-11 08:28] LABS: BURR CELLS SLIGHT
[2017-05-11] MEDS: Sodium Chloride 0.9% 1,000 ML IV SCH ×2 (08:43→19:05)
[2017-05-11] MEDS ORDERED: Magnesium Sulfate 1 gm in D5W 1 GM/100 ML BAG IVPB ONE (09:00)
--- NOTE | 2017-05-11 13:45 | CP.CCUPN ---
<Alis Marr - Last Filed: 05/11/17 13:48> CCU Subjective - Physician Review Subjective (Free Text): 05/11/17 13:[address] Beebe Patient seen and examined at bedside. Lethargic, responds to name. Patient states she doesn't know where she is. Patient is able to wiggle toes, and lift arms to command. Critical Care Time Spent (in minutes): 35 CCU Objective - Vital Signs / Intake & Output Intake and Output (Last 8hrs): Intake & Output 05/10/17 05/11/17 05/11/17 22:59 06:59 14:59 Intake Total 105 1340 700 Output Total 30 240 600 Balance 75 1100 100 Weight 207 lb Intake: Intake, IV Amount 105 1340 700 Left Antecubital 5 40 Left Hand 100 1300 700 Output: Urine 30 240 600 Urethral ([place]) 30 240 600 Other: Voiding Method Indwelling Catheter - Physical Exam Physical Exam Limitations: Positive for: Altered Mental Status Head: Negative for: Atraumatic, Normocephalic Pupils: Positive for: PERRL Extroacular Muscles: Positive for: EOMI Conjunctiva: Positive for: Normal Ears: Positive for: Normal Mouth: Positive for: Moist Mucous Membranes, Normal Teeth Nose (External): Positive for: Atraumatic Nose (Internal): Positive for: Normal Inspection Back: Positive for: Normal Inspection. Negative for: Paraspinal Tenderness Upper Extremity: Positive for: Normal Inspection, Capillary Refill < 2s. Negative for: Edema Lower Extremity: Positive for: Normal Inspection, Capillary Refill < 2 s Skin: Positive for: Warm, Dry, Pale - Medications Active Medications: Active Medications Generic Name Dose Route Start Last Admin Trade Name Tanvirq PRN Reason Stop Dose Admin Apixaban 2.5 mg 05/11/17 10:00 05/11/17 11:00 Eliquis PO 2.5 mg BID PANCHO Administration Diltiazem HCl 60 mg 05/11/17 14:00 Cardizem PO Q8H PANCHO Docusate Sodium 100 mg 05/11/17 10:00 05/11/17 11:00 Colace PO 100 mg BID PANCHO Administration Levetiracetam 500 mg/ Sodium 105 mls @ 420 mls/hr 05/10/17 17:00 05/11/17 05: 03 Chloride IVPB 420 mls/hr Q12H PANCHO Administration Diltiazem HCl 125 mg/ Sodium 125 mls @ 5 mls/hr 05/10/17 19:00 05/10/17 19:27 Chloride IV 5 mg/hr .Q24H PANCHO 5 mls/hr Protocol Administration 5 MG/HR Ceftriaxone Sodium 1 gm/ 100 mls @ 100 mls/hr 05/11/17 03:00 05/11/17 03:00 Sodium Chloride IVPB 100 mls/hr Q12H PANCHO Administration Vancomycin/Sodium Chloride 1 gm in 200 mls @ 133 mls/hr 05/11/17 04:00 04:00 Vancomycin 1 Gm/Ns 200 Ml IVPB 05/16/17 04:01 133 mls/hr Q24H PANCHO Administration Sodium Chloride 1,000 mls @ 100 mls/hr 05/10/17 21:57 05/11/17 08:43 Sodium Chloride 0.9% IV 100 mls/hr .Q10H PANCHO Administration Metoprolol Tartrate 50 mg 05/11/17 10:00 05/11/17 11:00 Lopressor PO 50 mg BID PANCHO Administration Pantoprazole Sodium 40 mg 05/11/17 10:00 05/11/17 11:00 Protonix Inj IVP 40 mg DAILY PANCHO Administration - Patient Studies Lab Studies: Lab Studies 05/11/17 05/11/17 05/10/17 Range/Units 06:30 06:30 19:14 WBC 8.8 (4.8-10.8) K/uL RBC 3.94 (3.80-5.20) Mil/uL Hgb 10.9 L (11.0-16.0) g/dL Hct 33.5 L (34.0-47.0) % MCV 84.9 (81.0-99.0) fL MCH 27.5 (27.0-31.0) pg MCHC 32.4 L (33.0-37.0) g/dL RDW 17.8 H (11.5-14.5) % Plt Count 164 (130-400) K/uL MPV 8.4 (7.2-11.7) fL Neut % (Auto) 82.6 H (50.0-75.0) % Lymph % (Auto) 8.1 L (20.0-40.0) % [place] % (Auto) 8.3 (0.0-10.0) % Eos % (Auto) 0.3 (0.0-4.0) % Baso % (Auto) 0.7 (0.0-2.0) % Neut # 7.3 H (1.8-7.0) K/uL Lymph # 0.7 L (1.0-4.3) K/uL [place] # 0.7 (0.0-0.8) K/uL Eos # 0.0 (0.0-0.7) K/uL Baso # 0.1 (0.0-0.2) K/uL Neutrophils % (Manual) 74 (50-75) % Lymphocytes % (Manual) 14 L (20-40) % Monocytes % (Manual) 11 H (0-10) % Eosinophils % (Manual) 1 (0-4) % Platelet Estimate Normal (NORMAL) Hypochromasia (manual) Slight Poikilocytosis (manual Slight Anisocytosis (manual) Slight Microcytosis (manual) Slight Macrocytosis (manual) Slight Ovalocytes Slight [place] Cells Slight PT (9.7-12.2) SECONDS INR APTT (21-34) SECONDS Puncture Site pO2 (30-55) mm/Hg Saurabh Test VBG pH (7.32-7.43) VBG pCO2 (40-60) mmHg VBG HCO3 mmol/L VBG Total CO2 (22-28) mmol/L VBG O2 Sat (Calc) (40-65) % VBG Base Excess (0.0-2.0) mmol/L VBG Potassium (3.6-5.2) mmol/L Glucose (65-105) mg/dl Lactate (0.7-2.1) mmol/L Crit Value Called To Crit Value Called By Crit Value Read Back Blood Gas Notified Time Sodium 133 (132-148) mmol/L Potassium 3.8 (3.6-5.2) mmol/L Chloride 105 (98-107) mmol/L Carbon Dioxide 21 L (22-30) mmol/L Anion Gap 10 (10-20) BUN 16 (7-17) mg/dL Creatinine 0.8 (0.7-1.2) mg/dL Est GFR ( Amer) > 60 Est GFR (Non-Af Amer) > 60 POC Glucose (mg/dL) (65-110) mg/dL Random Glucose 100 (65-105) mg/dL Calcium 8.1 L (8.6-10.4) mg/dl Phosphorus 3.0 (2.5-4.5) mg/dL Magnesium 1.5 L 1.6 (1.6-2.3) mg/dL Total Bilirubin 0.9 (0.2-1.3) mg/dL AST 40 H D (14-36) U/L ALT 21 (9-52) U/L Alkaline Phosphatase 59 (38-126) U/L Total Creatine Kinase (30-135) U/L Troponin I (0.00-0.120) ng/mL Total Protein 6.2 L (6.3-8.3) g/dL Albumin 3.2 L D (3.5-5.0) g/dL Globulin 3.0 (2.2-3.9) gm/dL Albumin/Globulin Ratio 1.1 (1.0-2.1) Prolactin 20.6 H (3.0-18.9) ng/mL Venous Blood Potassium (3.6-5.2) mmol/L Urine Color (YELLOW) Urine Clarity (Clear) Urine pH (5.0-8.0) Ur Specific [place] (1.003-1.030) Urine Protein (NEGATIVE) mg/dL Urine Glucose (UA) (Normal) mg/dL Urine Ketones (NEGATIVE) mg/dL Urine Blood (NEGATIVE) Urine Nitrate (NEGATIVE) Urine Bilirubin (NEGATIVE) Urine Urobilinogen (0.2-1.0) mg/dL Ur Leukocyte Esterase (Negative) Monica/uL Urine WBC (Auto) (0-5) /hpf Urine RBC (Auto) (0-3) /hpf Urine Bacteria (<OCC) Influenza Typ A,B (EIA) (NEGATIVE) Blood Type Antibody Screen 05/10/17 05/10/17 05/10/17 Range/Units 17:35 17:00 14:51 WBC (4.8-10.8) K/uL RBC (3.80-5.20) Mil/uL Hgb (11.0-16.0) g/dL Hct (34.0-47.0) % MCV (81.0-99.0) fL MCH (27.0-31.0) pg MCHC (33.0-37.0) g/dL RDW (11.5-14.5) % Plt Count (130-400) K/uL MPV (7.2-11.7) fL Neut % (Auto) (50.0-75.0) % Lymph % (Auto) (20.0-40.0) % [place] % (Auto) (0.0-10.0) % Eos % (Auto) (0.0-4.0) % Baso % (Auto) (0.0-2.0) % Neut # (1.8-7.0) K/uL Lymph # (1.0-4.3) K/uL [place] # (0.0-0.8) K/uL Eos # (0.0-0.7) K/uL Baso # (0.0-0.2) K/uL Neutrophils % (Manual) (50-75) % Lymphocytes % (Manual) (20-40) % Monocytes % (Manual) (0-10) % Eosinophils % (Manual) (0-4) % Platelet Estimate (NORMAL) Hypochromasia (manual) Poikilocytosis (manual Anisocytosis (manual) Microcytosis (manual) Macrocytosis (manual) Ovalocytes [place] Cells PT (9.7-12.2) SECONDS INR APTT (21-34) SECONDS Puncture Site Vein pO2 30 32 (30-55) mm/Hg Saurabh Test Na VBG pH 7.32 7.34 (7.32-7.43) VBG pCO2 52 48 (40-60) mmHg VBG HCO3 23.6 23.5 mmol/L VBG Total CO2 28.4 H (22-28) mmol/L VBG O2 Sat (Calc) 58.2 62.3 (40-65) % VBG Base Excess -0.1 L -0.4 L (0.0-2.0) mmol/L VBG Potassium 3.6 (3.6-5.2) mmol/L Glucose 139 H (65-105) mg/dl Lactate 1.8 (0.7-2.1) mmol/L Crit Value Called To Crit Value Called By Crit Value Read Back Blood Gas Notified Time Sodium 139.0 (132-148) mmol/L Potassium (3.6-5.2) mmol/L Chloride 106.0 (98-107) mmol/L Carbon Dioxide (22-30) mmol/L Anion Gap (10-20) BUN (7-17) mg/dL Creatinine (0.7-1.2) mg/dL Est GFR ( Amer) Est GFR (Non-Af Amer) POC Glucose (mg/dL) (65-110) mg/dL Random Glucose (65-105) mg/dL Calcium (8.6-10.4) mg/dl Phosphorus (2.5-4.5) mg/dL Magnesium (1.6-2.3) mg/dL Total Bilirubin (0.2-1.3) mg/dL AST (14-36) U/L ALT (9-52) U/L Alkaline Phosphatase (38-126) U/L Total Creatine Kinase (30-135) U/L Troponin I (0.00-0.120) ng/mL Total Protein (6.3-8.3) g/dL Albumin (3.5-5.0) g/dL Globulin (2.2-3.9) gm/dL Albumin/Globulin Ratio (1.0-2.1) Prolactin (3.0-18.9) ng/mL Venous Blood Potassium 3.6 (3.6-5.2) mmol/L Urine Color Yellow (YELLOW) Urine Clarity Clear (Clear) Urine pH 5.0 (5.0-8.0) Ur Specific [place] 1.017 (1.003-1.030) Urine Protein 2+ H (NEGATIVE) mg/dL Urine Glucose (UA) Normal (Normal) mg/dL Urine Ketones 1+ H (NEGATIVE) mg/dL Urine Blood 2+ H (NEGATIVE) Urine Nitrate Negative (NEGATIVE) Urine Bilirubin Negative (NEGATIVE) Urine Urobilinogen Normal (0.2-1.0) mg/dL Ur Leukocyte Esterase Neg (Negative) Monica/uL Urine WBC (Auto) 1 (0-5) /hpf Urine RBC (Auto) 6 H (0-3) /hpf Urine Bacteria Occ H (<OCC) Influenza Typ A,B (EIA) (NEGATIVE) Blood Type Antibody Screen 05/10/17 05/10/17 05/10/17 Range/Units 14:45 14:09 14:08 WBC (4.8-10.8) K/uL RBC (3.80-5.20) Mil/uL Hgb (11.0-16.0) g/dL Hct (34.0-47.0) % MCV (81.0-99.0) fL MCH (27.0-31.0) pg MCHC (33.0-37.0) g/dL RDW (11.5-14.5) % Plt Count (130-400) K/uL MPV (7.2-11.7) fL Neut % (Auto) (50.0-75.0) % Lymph % (Auto) (20.0-40.0) % [place] % (Auto) (0.0-10.0) % Eos % (Auto) (0.0-4.0) % Baso % (Auto) (0.0-2.0) % Neut # (1.8-7.0) K/uL Lymph # (1.0-4.3) K/uL [place] # (0.0-0.8) K/uL Eos # (0.0-0.7) K/uL Baso # (0.0-0.2) K/uL Neutrophils % (Manual) (50-75) % Lymphocytes % (Manual) (20-40) % Monocytes % (Manual) (0-10) % Eosinophils % (Manual) (0-4) % Platelet Estimate (NORMAL) Hypochromasia (manual) Poikilocytosis (manual Anisocytosis (manual) Microcytosis (manual) Macrocytosis (manual) Ovalocytes [place] Cells PT (9.7-12.2) SECONDS INR APTT (21-34) SECONDS Puncture Site pO2 38 (30-55) mm/Hg Saurabh Test VBG pH 7.28 L (7.32-7.43) VBG pCO2 45 (40-60) mmHg VBG HCO3 19.6 mmol/L VBG Total CO2 22.5 (22-28) mmol/L VBG O2 Sat (Calc) 72.3 H (40-65) % VBG Base Excess -5.6 L (0.0-2.0) mmol/L VBG Potassium 3.7 (3.6-5.2) mmol/L Glucose 205 H (65-105) mg/dl Lactate 6.0 H* (0.7-2.1) mmol/L Crit Value Called To Dr paulette ashton Crit Value Called By Anju riley traveling phlebotomist Crit Value Read Back Y Blood Gas Notified Time 1415 Sodium 137.0 (132-148) mmol/L Potassium (3.6-5.2) mmol/L Chloride 105.0 (98-107) mmol/L Carbon Dioxide (22-30) mmol/L Anion Gap (10-20) BUN (7-17) mg/dL Creatinine (0.7-1.2) mg/dL Est GFR ( Amer) Est GFR (Non-Af Amer) POC Glucose (mg/dL) (65-110) mg/dL Random Glucose (65-105) mg/dL Calcium (8.6-10.4) mg/dl Phosphorus (2.5-4.5) mg/dL Magnesium (1.6-2.3) mg/dL Total Bilirubin (0.2-1.3) mg/dL AST (14-36) U/L ALT (9-52) U/L Alkaline Phosphatase (38-126) U/L Total Creatine Kinase (30-135) U/L Troponin I (0.00-0.120) ng/mL Total Protein (6.3-8.3) g/dL Albumin (3.5-5.0) g/dL Globulin (2.2-3.9) gm/dL Albumin/Globulin Ratio (1.0-2.1) Prolactin (3.0-18.9) ng/mL Venous Blood Potassium 3.7 (3.6-5.2) mmol/L Urine Color (YELLOW) Urine Clarity (Clear) Urine pH (5.0-8.0) Ur Specific [place] (1.003-1.030) Urine Protein (NEGATIVE) mg/dL Urine Glucose (UA) (Normal) mg/dL Urine Ketones (NEGATIVE) mg/dL Urine Blood (NEGATIVE) Urine Nitrate (NEGATIVE) Urine Bilirubin (NEGATIVE) Urine Urobilinogen (0.2-1.0) mg/dL Ur Leukocyte Esterase (Negative) Monica/uL Urine WBC (Auto) (0-5) /hpf Urine RBC (Auto) (0-3) /hpf Urine Bacteria (<OCC) Influenza Typ A,B (EIA) Negative for flu a/b (NEGATIVE) Blood Type A POSITIVE Antibody Screen Negative 05/10/17 05/10/17 05/10/17 Range/Units 13:40 13:40 13:40 WBC 10.5 D (4.8-10.8) K/uL RBC 4.34 (3.80-5.20) Mil/uL Hgb 11.8 D (11.0-16.0) g/dL Hct 36.9 (34.0-47.0) % MCV 85.0 (81.0-99.0) fL MCH 27.3 (27.0-31.0) pg MCHC 32.1 L (33.0-37.0) g/dL RDW 18.1 H (11.5-14.5) % Plt Count 258 (130-400) K/uL MPV 8.7 (7.2-11.7) fL Neut % (Auto) 87.3 H (50.0-75.0) % Lymph % (Auto) 8.1 L (20.0-40.0) % [place] % (Auto) 4.3 (0.0-10.0) % Eos % (Auto) 0.0 (0.0-4.0) % Baso % (Auto) 0.3 (0.0-2.0) % Neut # 9.1 H (1.8-7.0) K/uL Lymph # 0.8 L (1.0-4.3) K/uL [place] # 0.4 (0.0-0.8) K/uL Eos # 0.0 (0.0-0.7) K/uL Baso # 0.0 (0.0-0.2) K/uL Neutrophils % (Manual) 88 H (50-75) % Lymphocytes % (Manual) 10 L (20-40) % Monocytes % (Manual) 2 (0-10) % Eosinophils % (Manual) (0-4) % Platelet Estimate Normal (NORMAL) Hypochromasia (manual) Poikilocytosis (manual Anisocytosis (manual) Slight Microcytosis (manual) Macrocytosis (manual) Ovalocytes Slight [place] Cells PT 13.0 H (9.7-12.2) SECONDS INR 1.2 APTT 29 (21-34) SECONDS Puncture Site pO2 (30-55) mm/Hg Saurabh Test VBG pH (7.32-7.43) VBG pCO2 (40-60) mmHg VBG HCO3 mmol/L VBG Total CO2 (22-28) mmol/L VBG O2 Sat (Calc) (40-65) % VBG Base Excess (0.0-2.0) mmol/L VBG Potassium (3.6-5.2) mmol/L Glucose (65-105) mg/dl Lactate (0.7-2.1) mmol/L Crit Value Called To Crit Value Called By Crit Value Read Back Blood Gas Notified Time Sodium 134 (132-148) mmol/L Potassium 3.6 (3.6-5.2) mmol/L Chloride 99 (98-107) mmol/L Carbon Dioxide 18 L (22-30) mmol/L Anion Gap 20 (10-20) BUN 17 (7-17) mg/dL Creatinine 1.0 (0.7-1.2) mg/dL Est GFR ( Amer) > 60 Est GFR (Non-Af Amer) 53 POC Glucose (mg/dL) (65-110) mg/dL Random Glucose 192 H (65-105) mg/dL Calcium 8.7 (8.6-10.4) mg/dl Phosphorus (2.5-4.5) mg/dL Magnesium (1.6-2.3) mg/dL Total Bilirubin 0.7 (0.2-1.3) mg/dL AST 29 (14-36) U/L ALT 24 (9-52) U/L Alkaline Phosphatase 83 (38-126) U/L Total Creatine Kinase 476 H (30-135) U/L Troponin I 0.0510 (0.00-0.120) ng/mL Total Protein 7.5 (6.3-8.3) g/dL Albumin 4.1 (3.5-5.0) g/dL Globulin 3.4 (2.2-3.9) gm/dL Albumin/Globulin Ratio 1.2 (1.0-2.1) Prolactin (3.0-18.9) ng/mL Venous Blood Potassium (3.6-5.2) mmol/L Urine Color (YELLOW) Urine Clarity (Clear) Urine pH (5.0-8.0) Ur Specific [place] (1.003-1.030) Urine Protein (NEGATIVE) mg/dL Urine Glucose (UA) (Normal) mg/dL Urine Ketones (NEGATIVE) mg/dL Urine Blood (NEGATIVE) Urine Nitrate (NEGATIVE) Urine Bilirubin (NEGATIVE) Urine Urobilinogen (0.2-1.0) mg/dL Ur Leukocyte Esterase (Negative) Monica/uL Urine WBC (Auto) (0-5) /hpf Urine RBC (Auto) (0-3) /hpf Urine Bacteria (<OCC) Influenza Typ A,B (EIA) (NEGATIVE) Blood Type Antibody Screen 05/10/17 Range/Units 13:34 WBC (4.8-10.8) K/uL RBC (3.80-5.20) Mil/uL Hgb (11.0-16.0) g/dL Hct (34.0-47.0) % MCV (81.0-99.0) fL MCH (27.0-31.0) pg MCHC (33.0-37.0) g/dL RDW (11.5-14.5) % Plt Count (130-400) K/uL MPV (7.2-11.7) fL Neut % (Auto) (50.0-75.0) % Lymph % (Auto) (20.0-40.0) % [place] % (Auto) (0.0-10.0) % Eos % (Auto) (0.0-4.0) % Baso % (Auto) (0.0-2.0) % Neut # (1.8-7.0) K/uL Lymph # (1.0-4.3) K/uL [place] # (0.0-0.8) K/uL Eos # (0.0-0.7) K/uL Baso # (0.0-0.2) K/uL Neutrophils % (Manual) (50-75) % Lymphocytes % (Manual) (20-40) % Monocytes % (Manual) (0-10) % Eosinophils % (Manual) (0-4) % Platelet Estimate (NORMAL) Hypochromasia (manual) Poikilocytosis (manual Anisocytosis (manual) Microcytosis (manual) Macrocytosis (manual) Ovalocytes [place] Cells PT (9.7-12.2) SECONDS INR APTT (21-34) SECONDS Puncture Site pO2 (30-55) mm/Hg Saurabh Test VBG pH (7.32-7.43) VBG pCO2 (40-60) mmHg VBG HCO3 mmol/L VBG Total CO2 (22-28) mmol/L VBG O2 Sat (Calc) (40-65) % VBG Base Excess (0.0-2.0) mmol/L VBG Potassium (3.6-5.2) mmol/L Glucose (65-105) mg/dl Lactate (0.7-2.1) mmol/L Crit Value Called To Crit Value Called By Crit Value Read Back Blood Gas Notified Time Sodium (132-148) mmol/L Potassium (3.6-5.2) mmol/L Chloride (98-107) mmol/L Carbon Dioxide (22-30) mmol/L Anion Gap (10-20) BUN (7-17) mg/dL Creatinine (0.7-1.2) mg/dL Est GFR ( Amer) Est GFR (Non-Af Amer) POC Glucose (mg/dL) 181 H (65-110) mg/dL Random Glucose (65-105) mg/dL Calcium (8.6-10.4) mg/dl Phosphorus (2.5-4.5) mg/dL Magnesium (1.6-2.3) mg/dL Total Bilirubin (0.2-1.3) mg/dL AST (14-36) U/L ALT (9-52) U/L Alkaline Phosphatase (38-126) U/L Total Creatine Kinase (30-135) U/L Troponin I (0.00-0.120) ng/mL Total Protein (6.3-8.3) g/dL Albumin (3.5-5.0) g/dL Globulin (2.2-3.9) gm/dL Albumin/Globulin Ratio (1.0-2.1) Prolactin (3.0-18.9) ng/mL Venous Blood Potassium (3.6-5.2) mmol/L Urine Color (YELLOW) Urine Clarity (Clear) Urine pH (5.0-8.0) Ur Specific [place] (1.003-1.030) Urine Protein (NEGATIVE) mg/dL Urine Glucose (UA) (Normal) mg/dL Urine Ketones (NEGATIVE) mg/dL Urine Blood (NEGATIVE) Urine Nitrate (NEGATIVE) Urine Bilirubin (NEGATIVE) Urine Urobilinogen (0.2-1.0) mg/dL Ur Leukocyte Esterase (Negative) Monica/uL Urine WBC (Auto) (0-5) /hpf Urine RBC (Auto) (0-3) /hpf Urine Bacteria (<OCC) Influenza Typ A,B (EIA) (NEGATIVE) Blood Type Antibody Screen Laboratory Results - last 24 hr 05/10/17 05/10/17 05/10/17 13:34 13:40 13:40 WBC 10.5 D RBC 4.34 Hgb 11.8 D Hct 36.9 MCV 85.0 MCH 27.3 MCHC 32.1 L RDW 18.1 H Plt Count 258 MPV 8.7 Neut % (Auto) 87.3 H Lymph % (Auto) 8.1 L [place] % (Auto) 4.3 Eos % (Auto) 0.0 Baso % (Auto) 0.3 Neut # 9.1 H Lymph # 0.8 L [place] # 0.4 Eos # 0.0 Baso # 0.0 Neutrophils % (Manual) 88 H Lymphocytes % (Manual) 10 L Monocytes % (Manual) 2 Eosinophils % (Manual) Platelet Estimate Normal Hypochromasia (manual) Poikilocytosis (manual Anisocytosis (manual) Slight Microcytosis (manual) Macrocytosis (manual) Ovalocytes Slight [place] Cells PT 13.0 H INR 1.2 APTT 29 Puncture Site pO2 Saurabh Test VBG pH VBG pCO2 VBG HCO3 VBG Total CO2 VBG O2 Sat (Calc) VBG Base Excess VBG Potassium Glucose Lactate Crit Value Called To Crit Value Called By Crit Value Read Back Blood Gas Notified Time Sodium Potassium Chloride Carbon Dioxide Anion Gap BUN Creatinine Est GFR ( Amer) Est GFR (Non-Af Amer) POC Glucose (mg/dL) 181 H Random Glucose Calcium Phosphorus Magnesium Total Bilirubin AST ALT Alkaline Phosphatase Total Creatine Kinase Troponin I Total Protein Albumin Globulin Albumin/Globulin Ratio Prolactin Venous Blood Potassium Urine Color Urine Clarity Urine pH Ur Specific [place] Urine Protein Urine Glucose (UA) Urine Ketones Urine Blood Urine Nitrate Urine Bilirubin Urine Urobilinogen Ur Leukocyte Esterase Urine WBC (Auto) Urine RBC (Auto) Urine Bacteria Influenza Typ A,B (EIA) Blood Type Antibody Screen 05/10/17 05/10/17 05/10/17 13:40 14:08 14:09 WBC RBC Hgb Hct MCV MCH MCHC RDW Plt Count MPV Neut % (Auto) Lymph % (Auto) [place] % (Auto) Eos % (Auto) Baso % (Auto) Neut # Lymph # [place] # Eos # Baso # Neutrophils % (Manual) Lymphocytes % (Manual) Monocytes % (Manual) Eosinophils % (Manual) Platelet Estimate Hypochromasia (manual) Poikilocytosis (manual Anisocytosis (manual) Microcytosis (manual) Macrocytosis (manual) Ovalocytes [place] Cells PT INR APTT Puncture Site pO2 38 Saurabh Test VBG pH 7.28 L VBG pCO2 45 VBG HCO3 19.6 VBG Total CO2 22.5 VBG O2 Sat (Calc) 72.3 H VBG Base Excess -5.6 L VBG Potassium 3.7 Glucose 205 H Lactate 6.0 H* Crit Value Called To Dr paulette ashton Crit Value Called By Anju riley traveling phlebotomist Crit Value Read Back Y Blood Gas Notified Time 1415 Sodium 134 137.0 Potassium 3.6 Chloride 99 105.0 Carbon Dioxide 18 L Anion Gap 20 BUN 17 Creatinine 1.0 Est GFR ( Amer) > 60 Est GFR (Non-Af Amer) 53 POC Glucose (mg/dL) Random Glucose 192 H Calcium 8.7 Phosphorus Magnesium Total Bilirubin 0.7 AST 29 ALT 24 Alkaline Phosphatase 83 Total Creatine Kinase 476 H Troponin I 0.0510 Total Protein 7.5 Albumin 4.1 Globulin 3.4 Albumin/Globulin Ratio 1.2 Prolactin Venous Blood Potassium 3.7 Urine Color Urine Clarity Urine pH Ur Specific [place] Urine Protein Urine Glucose (UA) Urine Ketones Urine Blood Urine Nitrate Urine Bilirubin Urine Urobilinogen Ur Leukocyte Esterase Urine WBC (Auto) Urine RBC (Auto) Urine Bacteria Influenza Typ A,B (EIA) Blood Type A POSITIVE Antibody Screen Negative 05/10/17 05/10/17 05/10/17 14:45 14:51 17:00 WBC RBC Hgb Hct MCV MCH MCHC RDW Plt Count MPV Neut % (Auto) Lymph % (Auto) [place] % (Auto) Eos % (Auto) Baso % (Auto) Neut # Lymph # [place] # Eos # Baso # Neutrophils % (Manual) Lymphocytes % (Manual) Monocytes % (Manual) Eosinophils % (Manual) Platelet Estimate Hypochromasia (manual) Poikilocytosis (manual Anisocytosis (manual) Microcytosis (manual) Macrocytosis (manual) Ovalocytes [place] Cells PT INR APTT Puncture Site Vein pO2 32 Saurabh Test Na VBG pH 7.34 VBG pCO2 48 VBG HCO3 23.5 VBG Total CO2 VBG O2 Sat (Calc) 62.3 VBG Base Excess -0.4 L VBG Potassium Glucose Lactate Crit Value Called To Crit Value Called By Crit Value Read Back Blood Gas Notified Time Sodium Potassium Chloride Carbon Dioxide Anion Gap BUN Creatinine Est GFR ( Amer) Est GFR (Non-Af Amer) POC Glucose (mg/dL) Random Glucose Calcium Phosphorus Magnesium Total Bilirubin AST ALT Alkaline Phosphatase Total Creatine Kinase Troponin I Total Protein Albumin Globulin Albumin/Globulin Ratio Prolactin Venous Blood Potassium Urine Color Yellow Urine Clarity Clear Urine pH 5.0 Ur Specific [place] 1.017 Urine Protein 2+ H Urine Glucose (UA) Normal Urine Ketones 1+ H Urine Blood 2+ H Urine Nitrate Negative Urine Bilirubin Negative Urine Urobilinogen Normal Ur Leukocyte Esterase Neg Urine WBC (Auto) 1 Urine RBC (Auto) 6 H Urine Bacteria Occ H Influenza Typ A,B (EIA) Negative for flu a/b Blood Type Antibody Screen 05/10/17 05/10/17 05/11/17 17:35 19:14 06:30 WBC 8.8 RBC 3.94 Hgb 10.9 L Hct 33.5 L MCV 84.9 MCH 27.5 MCHC 32.4 L RDW 17.8 H Plt Count 164 MPV 8.4 Neut % (Auto) 82.6 H Lymph % (Auto) 8.1 L [place] % (Auto) 8.3 Eos % (Auto) 0.3 Baso % (Auto) 0.7 Neut # 7.3 H Lymph # 0.7 L [place] # 0.7 Eos # 0.0 Baso # 0.1 Neutrophils % (Manual) 74 Lymphocytes % (Manual) 14 L Monocytes % (Manual) 11 H Eosinophils % (Manual) 1 Platelet Estimate Normal Hypochromasia (manual) Slight Poikilocytosis (manual Slight Anisocytosis (manual) Slight Microcytosis (manual) Slight Macrocytosis (manual) Slight Ovalocytes Slight [place] Cells Slight PT INR APTT Puncture Site pO2 30 Saurabh Test VBG pH 7.32 VBG pCO2 52 VBG HCO3 23.6 VBG Total CO2 28.4 H VBG O2 Sat (Calc) 58.2 VBG Base Excess -0.1 L VBG Potassium 3.6 Glucose 139 H Lactate 1.8 Crit Value Called To Crit Value Called By Crit Value Read Back Blood Gas Notified Time Sodium 139.0 Potassium Chloride 106.0 Carbon Dioxide Anion Gap BUN Creatinine Est GFR ( Amer) Est GFR (Non-Af Amer) POC Glucose (mg/dL) Random Glucose Calcium Phosphorus Magnesium 1.6 Total Bilirubin AST ALT Alkaline Phosphatase Total Creatine Kinase Troponin I Total Protein Albumin Globulin Albumin/Globulin Ratio Prolactin 20.6 H Venous Blood Potassium 3.6 Urine Color Urine Clarity Urine pH Ur Specific [place] Urine Protein Urine Glucose (UA) Urine Ketones Urine Blood Urine Nitrate Urine Bilirubin Urine Urobilinogen Ur Leukocyte Esterase Urine WBC (Auto) Urine RBC (Auto) Urine Bacteria Influenza Typ A,B (EIA) Blood Type Antibody Screen 05/11/17 06:30 WBC RBC Hgb Hct MCV MCH MCHC RDW Plt Count MPV Neut % (Auto) Lymph % (Auto) [place] % (Auto) Eos % (Auto) Baso % (Auto) Neut # Lymph # [place] # Eos # Baso # Neutrophils % (Manual) Lymphocytes % (Manual) Monocytes % (Manual) Eosinophils % (Manual) Platelet Estimate Hypochromasia (manual) Poikilocytosis (manual Anisocytosis (manual) Microcytosis (manual) Macrocytosis (manual) Ovalocytes [place] Cells PT INR APTT Puncture Site pO2 Saurabh Test VBG pH VBG pCO2 VBG HCO3 VBG Total CO2 VBG O2 Sat (Calc) VBG Base Excess VBG Potassium Glucose Lactate Crit Value Called To Crit Value Called By Crit Value Read Back Blood Gas Notified Time Sodium 133 Potassium 3.8 Chloride 105 Carbon Dioxide 21 L Anion Gap 10 BUN 16 Creatinine 0.8 Est GFR ( Amer) > 60 Est GFR (Non-Af Amer) > 60 POC Glucose (mg/dL) Random Glucose 100 Calcium 8.1 L Phosphorus 3.0 Magnesium 1.5 L Total Bilirubin 0.9 AST 40 H D ALT 21 Alkaline Phosphatase 59 Total Creatine Kinase Troponin I Total Protein 6.2 L Albumin 3.2 L D Globulin 3.0 Albumin/Globulin Ratio 1.1 Prolactin Venous Blood Potassium Urine Color Urine Clarity Urine pH Ur Specific [place] Urine Protein Urine Glucose (UA) Urine Ketones Urine Blood Urine Nitrate Urine Bilirubin Urine Urobilinogen Ur Leukocyte Esterase Urine WBC (Auto) Urine RBC (Auto) Urine Bacteria Influenza Typ A,B (EIA) Blood Type Antibody Screen EKG/Cardiology Studies: Cardiology / EKG Studies 05/10/17 13:32 ELECTROCARDIOGRAM Stat Comment: Mode Of Transportation: BED Reason For Exam: chest pain 05/10/17 14:05 ELECTROCARDIOGRAM Stat Comment: Mode Of Transportation: BED Reason For Exam: chest pain Fingerstick Blood Sugar Results: 181 Critical Care Progress Note - Nutrition Nutrition: Nutrition Category Date Time Status NPO Diet [DIET] Diets 05/10/17 Breakfast Active Assessment/Plan - Assessment and Plan (Free Text) Assessment: 81F with PMH hypertension, hypercholesterolemia, osteoarthritis, atrial fibrillation, renal insufficiency on anticoagulation brought in by the ambulance to the emergency room presents with seizure in ambulance after being found on the ground in her house slumped and passed out leaning on her chair. Neuro Seizure Keppra 500mg IVPB Q12H 05/10 CT head no active bleed 05/11 f/u MRI w/ w/o contrast Neuro Consult: Dr. Rodriguez Cardio history of atrial fibrillation f/u ECHO Diltiazem 125mg 5mg/hr Eliquis 2.5mg PO BID Cardio Consult: Dr. Sharma GI hx Constipation Colace 100mg PO BID Nephro I/O NS @ 100cc/hr ID Ceftriaxone 1g IVPB Q12H Vancomycin 1gm 200cc IVPB Q24H Prophylaxis Protonix 40mg IVP QD Eliquis 2.5mg PO BID discussed with Dr. Concepción Marr DO PGY1 - Date & Time Date: 05/11/17 Time: 13:48 <Khanh Beebe - Last Filed: 05/11/17 17:56> CCU Objective - Vital Signs / Intake & Output Vital Signs (Last 4 hours): Vital Signs Temp Pulse Ox 05/11/17 16:00 100.3 F H 96 Intake and Output (Last 8hrs): Intake & Output 05/11/17 05/11/17 05/11/17 06:59 14:59 22:59 Intake Total 1340 840 100 Output Total 240 600 Balance 1100 240 100 Weight 207 lb Intake: Intake, IV Amount 1340 840 100 Left Antecubital 40 40 100 Left Hand 1300 800 Output: Urine 240 600 Urethral ([place]) 240 600 - Medications Active Medications: Active Medications Generic Name Dose Route Start Last Admin Trade Name Freq PRN Reason Stop Dose Admin Apixaban 2.5 mg 05/11/17 10:00 05/11/17 11:00 Eliquis PO 2.5 mg BID PANCHO Administration Docusate Sodium 100 mg 05/11/17 10:00 05/11/17 11:00 Colace PO 100 mg BID PANCHO Administration Levetiracetam 500 mg/ Sodium 105 mls @ 420 mls/hr 05/10/17 17:00 05/11/17 17: 30 Chloride IVPB 420 mls/hr Q12H PANCHO Administration Ceftriaxone Sodium 1 gm/ 100 mls @ 100 mls/hr 05/11/17 03:00 05/11/17 17:20 Sodium Chloride IVPB 100 mls/hr Q12H PANCHO Administration Vancomycin/Sodium Chloride 1 gm in 200 mls @ 133 mls/hr 05/11/17 04:00 04:00 Vancomycin 1 Gm/Ns 200 Ml IVPB 05/16/17 04:01 133 mls/hr Q24H PANCHO Administration Sodium Chloride 1,000 mls @ 100 mls/hr 05/10/17 21:57 05/11/17 08:43 Sodium Chloride 0.9% IV 100 mls/hr .Q10H PANCHO Administration Metoprolol Tartrate 50 mg 05/11/17 10:00 05/11/17 11:00 Lopressor PO 50 mg BID PANCHO Administration Pantoprazole Sodium 40 mg 05/11/17 10:00 05/11/17 11:00 Protonix Inj IVP 40 mg DAILY PANCHO Administration - Patient Studies Lab Studies: Microbiology Studies 05/10/17 18:03 Urine Culture - Final Urine,Catheterized No Growth (<1,000 CFU/ML) Lab Studies 05/11/17 05/11/17 05/11/17 Range/Units 06:30 06:30 06:30 WBC 8.8 (4.8-10.8) K/uL RBC 3.94 (3.80-5.20) Mil/uL Hgb 10.9 L (11.0-16.0) g/dL Hct 33.5 L (34.0-47.0) % MCV 84.9 (81.0-99.0) fL MCH 27.5 (27.0-31.0) pg MCHC 32.4 L (33.0-37.0) g/dL RDW 17.8 H (11.5-14.5) % Plt Count 164 (130-400) K/uL MPV 8.4 (7.2-11.7) fL Neut % (Auto) 82.6 H (50.0-75.0) % Lymph % (Auto) 8.1 L (20.0-40.0) % [place] % (Auto) 8.3 (0.0-10.0) % Eos % (Auto) 0.3 (0.0-4.0) % Baso % (Auto) 0.7 (0.0-2.0) % Neut # 7.3 H (1.8-7.0) K/uL Lymph # 0.7 L (1.0-4.3) K/uL [place] # 0.7 (0.0-0.8) K/uL Eos # 0.0 (0.0-0.7) K/uL Baso # 0.1 (0.0-0.2) K/uL Neutrophils % (Manual) 74 (50-75) % Lymphocytes % (Manual) 14 L (20-40) % Monocytes % (Manual) 11 H (0-10) % Eosinophils % (Manual) 1 (0-4) % Platelet Estimate Normal (NORMAL) Hypochromasia (manual) Slight Poikilocytosis (manual Slight Anisocytosis (manual) Slight Microcytosis (manual) Slight Macrocytosis (manual) Slight Ovalocytes Slight [place] Cells Slight Sodium 133 (132-148) mmol/L Potassium 3.8 (3.6-5.2) mmol/L Chloride 105 (98-107) mmol/L Carbon Dioxide 21 L (22-30) mmol/L Anion Gap 10 (10-20) BUN 16 (7-17) mg/dL Creatinine 0.8 (0.7-1.2) mg/dL Est GFR ( Amer) > 60 Est GFR (Non-Af Amer) > 60 POC Glucose (mg/dL) (65-110) mg/dL Random Glucose 100 (65-105) mg/dL Calcium 8.1 L (8.6-10.4) mg/dl Phosphorus 3.0 (2.5-4.5) mg/dL Magnesium 1.5 L (1.6-2.3) mg/dL Total Bilirubin 0.9 (0.2-1.3) mg/dL AST 40 H D (14-36) U/L ALT 21 (9-52) U/L Alkaline Phosphatase 59 (38-126) U/L Total Protein 6.2 L (6.3-8.3) g/dL Albumin 3.2 L D (3.5-5.0) g/dL Globulin 3.0 (2.2-3.9) gm/dL Albumin/Globulin Ratio 1.1 (1.0-2.1) Procalcitonin < 0.05 L (0.19-0.49) NG/ML Prolactin (3.0-18.9) ng/mL 05/10/17 05/10/17 Range/Units 19:14 13:34 WBC (4.8-10.8) K/uL RBC (3.80-5.20) Mil/uL Hgb (11.0-16.0) g/dL Hct (34.0-47.0) % MCV (81.0-99.0) fL MCH (27.0-31.0) pg MCHC (33.0-37.0) g/dL RDW (11.5-14.5) % Plt Count (130-400) K/uL MPV (7.2-11.7) fL Neut % (Auto) (50.0-75.0) % Lymph % (Auto) (20.0-40.0) % [place] % (Auto) (0.0-10.0) % Eos % (Auto) (0.0-4.0) % Baso % (Auto) (0.0-2.0) % Neut # (1.8-7.0) K/uL Lymph # (1.0-4.3) K/uL [place] # (0.0-0.8) K/uL Eos # (0.0-0.7) K/uL Baso # (0.0-0.2) K/uL Neutrophils % (Manual) (50-75) % Lymphocytes % (Manual) (20-40) % Monocytes % (Manual) (0-10) % Eosinophils % (Manual) (0-4) % Platelet Estimate (NORMAL) Hypochromasia (manual) Poikilocytosis (manual Anisocytosis (manual) Microcytosis (manual) Macrocytosis (manual) Ovalocytes [place] Cells Sodium (132-148) mmol/L Potassium (3.6-5.2) mmol/L Chloride (98-107) mmol/L Carbon Dioxide (22-30) mmol/L Anion Gap (10-20) BUN (7-17) mg/dL Creatinine (0.7-1.2) mg/dL Est GFR ( Amer) Est GFR (Non-Af Amer) POC Glucose (mg/dL) 181 H (65-110) mg/dL Random Glucose (65-105) mg/dL Calcium (8.6-10.4) mg/dl Phosphorus (2.5-4.5) mg/dL Magnesium 1.6 (1.6-2.3) mg/dL Total Bilirubin (0.2-1.3) mg/dL AST (14-36) U/L ALT (9-52) U/L Alkaline Phosphatase (38-126) U/L Total Protein (6.3-8.3) g/dL Albumin (3.5-5.0) g/dL Globulin (2.2-3.9) gm/dL Albumin/Globulin Ratio (1.0-2.1) Procalcitonin (0.19-0.49) NG/ML Prolactin 20.6 H (3.0-18.9) ng/mL Laboratory Results - last 24 hr 05/10/17 05/10/17 05/11/17 13:34 19:14 06:30 WBC RBC Hgb Hct MCV MCH MCHC RDW Plt Count MPV Neut % (Auto) Lymph % (Auto) [place] % (Auto) Eos % (Auto) Baso % (Auto) Neut # Lymph # [place] # Eos # Baso # Neutrophils % (Manual) Lymphocytes % (Manual) Monocytes % (Manual) Eosinophils % (Manual) Platelet Estimate Hypochromasia (manual) Poikilocytosis (manual Anisocytosis (manual) Microcytosis (manual) Macrocytosis (manual) Ovalocytes [place] Cells Sodium Potassium Chloride Carbon Dioxide Anion Gap BUN Creatinine Est GFR ( Amer) Est GFR (Non-Af Amer) POC Glucose (mg/dL) 181 H Random Glucose Calcium Phosphorus Magnesium 1.6 Total Bilirubin AST ALT Alkaline Phosphatase Total Protein Albumin Globulin Albumin/Globulin Ratio Procalcitonin < 0.05 L Prolactin 20.6 H 05/11/17 05/11/17 06:30 06:30 WBC 8.8 RBC 3.94 Hgb 10.9 L Hct 33.5 L MCV 84.9 MCH 27.5 MCHC 32.4 L RDW 17.8 H Plt Count 164 MPV 8.4 Neut % (Auto) 82.6 H Lymph % (Auto) 8.1 L [place] % (Auto) 8.3 Eos % (Auto) 0.3 Baso % (Auto) 0.7 Neut # 7.3 H Lymph # 0.7 L [place] # 0.7 Eos # 0.0 Baso # 0.1 Neutrophils % (Manual) 74 Lymphocytes % (Manual) 14 L Monocytes % (Manual) 11 H Eosinophils % (Manual) 1 Platelet Estimate Normal Hypochromasia (manual) Slight Poikilocytosis (manual Slight Anisocytosis (manual) Slight Microcytosis (manual) Slight Macrocytosis (manual) Slight Ovalocytes Slight [place] Cells Slight Sodium 133 Potassium 3.8 Chloride 105 Carbon Dioxide 21 L Anion Gap 10 BUN 16 Creatinine 0.8 Est GFR ( Amer) > 60 Est GFR (Non-Af Amer) > 60 POC Glucose (mg/dL) Random Glucose 100 Calcium 8.1 L Phosphorus 3.0 Magnesium 1.5 L Total Bilirubin 0.9 AST 40 H D ALT 21 Alkaline Phosphatase 59 Total Protein 6.2 L Albumin 3.2 L D Globulin 3.0 Albumin/Globulin Ratio 1.1 Procalcitonin Prolactin Critical Care Progress Note - Nutrition Nutrition: Nutrition Category Date Time Status Dysphagia/Modified Consistency Diet [DIET] Diets 05/11/17 Dinner Ordered Attending/Attestation - Attestation I have personally seen and examined this patient.: Yes I have fully participated in the care of the patient.: Yes I have reviewed all pertinent clinical information: Yes Notes (Text): 05/11/17 17:45 I have seen and examined the patient. Medical records, lab studies, and imaging were reviewed by me and a management plan was formulated on multidisciplinary rounds with resident Dr. Marr. I agree with their documented assessment and plan. Patient has been loaded with Keppra, still post-ictal. Obtained MRI, possible PRES, will control SBP <140. Lot's of motion artifact. Will discuss with neurology Dr. Rodriguez. Critical Care Time 35 minutes. Multi-disciplinary rounds were performed with house staff, nursing, speech therapy, respiratory therapy, pharmacy and nutrition with integrated input from the primary team/attending and other consulting services. The documented time is cumulative and includes review of patient data/exams/labs/chart review and examination of the patient on rounds and throughout the day; time is exclusive of any procedures or teaching time. 05/11/17 17:55
--- NOTE | 2017-05-11 14:40 | CARD ---
APPROVED REPORT EKG Measurement Heart [id number] <Conclusion> Atrial fibrillation Minimal voltage criteria for LVH, may be normal variant Nonspecific ST abnormality Abnormal ECG
--- NOTE | 2017-05-11 15:56 | CP.PCM.CON ---
History of Present Illness - History of Present Illness History of Present Illness: Podiatry note for Dr. Talib Rincon 81 yo female patient with PMHx of HTN, hypercholesterolemia, atrial fibrillation , renal insufficiency was seen at bedside this afternoon after request for podiatry consultation concerning painful, elongated, mycotic toenails x10. Patient complains of thickened toenails that generate pain and irritation. Patient denies of any other pedal complaints. He denies of any N/V/F/C or SOB today Review of Systems - Constitutional Constitutional: As Per HPI Past Patient History - Infectious Disease Hx of Infectious Diseases: None - Past Medical History & Family History Past Medical History?: Yes - Past Social History Smoking Status: Never Smoked Alcohol: None Drugs: Denies Home Situation {Lives}: Alone - CARDIAC Hx Atrial Fibrillation: Yes (new onset ) Hx Hypercholesterolemia: Yes Hx Hypertension: Yes - PULMONARY Hx Respiratory Disorders: No - NEUROLOGICAL Hx Neurological Disorder: Yes Hx Seizures: Yes (new onset) - HEENT Hx HEENT Problems: Yes Other/Comment: uses glasses - RENAL Hx Chronic Kidney Disease: Yes Other/Comment: renal insufficiency - ENDOCRINE/METABOLIC Hx Endocrine Disorders: No - HEMATOLOGICAL/ONCOLOGICAL Hx Blood Disorders: No - INTEGUMENTARY Hx Dermatological Problems: No - MUSCULOSKELETAL/RHEUMATOLOGICAL Hx Falls: No - GASTROINTESTINAL Hx Gastrointestinal Disorders: No - GENITOURINARY/GYNECOLOGICAL Hx Genitourinary Disorders: No - PSYCHIATRIC Hx Substance Use: No - SURGICAL HISTORY Hx Tonsillectomy: Yes - ANESTHESIA Hx Anesthesia: Yes Hx Anesthesia Reactions: No Meds Allergies/Adverse Reactions: Allergies Allergy/AdvReac Type Severity Reaction Status Date / Time No Known Allergies Allergy Verified 05/10/17 13:31 - Medications Medications: Current Medications Apixaban (Eliquis) 2.5 mg PO BID [facility] Last Admin: 05/11/17 11:00 Dose: 2.5 mg Diltiazem HCl (Cardizem) 60 mg PO Q8H [facility] Last Admin: 05/11/17 13:48 Dose: 60 mg Docusate Sodium (Colace) 100 mg PO BID [facility] Last Admin: 05/11/17 11:00 Dose: 100 mg Levetiracetam 500 mg/ Sodium (Chloride) 105 mls @ 420 mls/hr IVPB Q12H [facility] Last Admin: 05/11/17 05:03 Dose: 420 mls/hr Diltiazem HCl 125 mg/ Sodium (Chloride) 125 mls @ 5 mls/hr IV .Q24H [facility]; 5 MG/ HR PRN Reason: Protocol Last Admin: 05/10/17 19:27 Dose: 5 mg/hr, 5 mls/hr Ceftriaxone Sodium 1 gm/ (Sodium Chloride) 100 mls @ 100 mls/hr IVPB Q12H [facility] Last Admin: 05/11/17 03:00 Dose: 100 mls/hr Vancomycin/Sodium Chloride (Vancomycin 1 Gm/Ns 200 Ml) 1 gm in 200 mls @ 133 mls/hr IVPB Q24H [facility] Stop: 05/16/17 04:01 Last Admin: 05/11/17 04:00 Dose: 133 mls/hr Sodium Chloride (Sodium Chloride 0.9%) 1,000 mls @ 100 mls/hr IV .Q10H [facility] Last Admin: 05/11/17 08:43 Dose: 100 mls/hr Metoprolol Tartrate (Lopressor) 50 mg PO BID [facility] Last Admin: 05/11/17 11:00 Dose: 50 mg Pantoprazole Sodium (Protonix Inj) 40 mg IVP DAILY [facility] Last Admin: 05/11/17 11:00 Dose: 40 mg Physical Exam - Constitutional Appears: Well, Non-toxic, No Acute Distress - Head Exam Head Exam: ATRAUMATIC - Extremities Exam Additional comments: Bilateral lower extremity exam DERM: No open wound noted bilaterally. No erythema noted, no drainage is noted. No interdigital maceration is noted. Painful, elongated, thickened, curled, mycotic toenail x10 were noted to bilateral feet consistent with onychomycosis. No sign of acute infection is noted anywhere in the bilateral feet. VASC: Palpable DP and PT noted bilaterally 1/4. OIL SPOT WASHER less than 3 secodns noted to all digits bilaterally. ORTHO: No pain on palpation to lower extremities. NEURO: Gross sensation intact bilaterally tested with Sultan Nelida Monofilament. - Psychiatric Exam Psychiatric exam: Normal Affect, Normal Mood - Skin Skin Exam: Normal Color Results - Vital Signs Recent Vital Signs: Last Vital Signs Temp 98.2 F 05/11/17 04:00 Pulse 96 H 05/11/17 05:43 Resp 23 05/11/17 05:43 BP 97/61 L 05/11/17 05:43 Pulse Ox 85 L 05/11/17 03:42 - Labs Result Diagrams: 05/11/17 06:30 05/11/17 06:30 Labs: Laboratory Results - last 24 hr 05/10/17 05/10/17 05/10/17 13:34 17:00 17:35 WBC RBC Hgb Hct MCV MCH MCHC RDW Plt Count MPV Neut % (Auto) Lymph % (Auto) [place] % (Auto) Eos % (Auto) Baso % (Auto) Neut # Lymph # [place] # Eos # Baso # Neutrophils % (Manual) Lymphocytes % (Manual) Monocytes % (Manual) Eosinophils % (Manual) Platelet Estimate Hypochromasia (manual) Poikilocytosis (manual Anisocytosis (manual) Microcytosis (manual) Macrocytosis (manual) Ovalocytes [place] Cells Puncture Site Vein pO2 32 30 Saurabh Test Na VBG pH 7.34 7.32 VBG pCO2 48 52 VBG HCO3 23.5 23.6 VBG Total CO2 28.4 H VBG O2 Sat (Calc) 62.3 58.2 VBG Base Excess -0.4 L -0.1 L VBG Potassium 3.6 Sodium 139.0 Chloride 106.0 Glucose 139 H Lactate 1.8 Potassium Carbon Dioxide Anion Gap BUN Creatinine Est GFR ( Amer) Est GFR (Non-Af Amer) POC Glucose (mg/dL) 181 H Random Glucose Calcium Phosphorus Magnesium Total Bilirubin AST ALT Alkaline Phosphatase Total Protein Albumin Globulin Albumin/Globulin Ratio Procalcitonin Prolactin Venous Blood Potassium 3.6 05/10/17 05/11/17 05/11/17 19:14 06:30 06:30 WBC 8.8 RBC 3.94 Hgb 10.9 L Hct 33.5 L MCV 84.9 MCH 27.5 MCHC 32.4 L RDW 17.8 H Plt Count 164 MPV 8.4 Neut % (Auto) 82.6 H Lymph % (Auto) 8.1 L [place] % (Auto) 8.3 Eos % (Auto) 0.3 Baso % (Auto) 0.7 Neut # 7.3 H Lymph # 0.7 L [place] # 0.7 Eos # 0.0 Baso # 0.1 Neutrophils % (Manual) 74 Lymphocytes % (Manual) 14 L Monocytes % (Manual) 11 H Eosinophils % (Manual) 1 Platelet Estimate Normal Hypochromasia (manual) Slight Poikilocytosis (manual Slight Anisocytosis (manual) Slight Microcytosis (manual) Slight Macrocytosis (manual) Slight Ovalocytes Slight [place] Cells Slight Puncture Site pO2 Saurabh Test VBG pH VBG pCO2 VBG HCO3 VBG Total CO2 VBG O2 Sat (Calc) VBG Base Excess VBG Potassium Sodium Chloride Glucose Lactate Potassium Carbon Dioxide Anion Gap BUN Creatinine Est GFR ( Amer) Est GFR (Non-Af Amer) POC Glucose (mg/dL) Random Glucose Calcium Phosphorus Magnesium 1.6 Total Bilirubin AST ALT Alkaline Phosphatase Total Protein Albumin Globulin Albumin/Globulin Ratio Procalcitonin < 0.05 L Prolactin 20.6 H Venous Blood Potassium 05/11/17 06:30 WBC RBC Hgb Hct MCV MCH MCHC RDW Plt Count MPV Neut % (Auto) Lymph % (Auto) [place] % (Auto) Eos % (Auto) Baso % (Auto) Neut # Lymph # [place] # Eos # Baso # Neutrophils % (Manual) Lymphocytes % (Manual) Monocytes % (Manual) Eosinophils % (Manual) Platelet Estimate Hypochromasia (manual) Poikilocytosis (manual Anisocytosis (manual) Microcytosis (manual) Macrocytosis (manual) Ovalocytes [place] Cells Puncture Site pO2 Saurabh Test VBG pH VBG pCO2 VBG HCO3 VBG Total CO2 VBG O2 Sat (Calc) VBG Base Excess VBG Potassium Sodium 133 Chloride 105 Glucose Lactate Potassium 3.8 Carbon Dioxide 21 L Anion Gap 10 BUN 16 Creatinine 0.8 Est GFR ( Amer) > 60 Est GFR (Non-Af Amer) > 60 POC Glucose (mg/dL) Random Glucose 100 Calcium 8.1 L Phosphorus 3.0 Magnesium 1.5 L Total Bilirubin 0.9 AST 40 H D ALT 21 Alkaline Phosphatase 59 Total Protein 6.2 L Albumin 3.2 L D Globulin 3.0 Albumin/Globulin Ratio 1.1 Procalcitonin Prolactin Venous Blood Potassium Assessment & Plan - Assessment and Plan (Free Text) Assessment: 81 yo female patient presents with Onychomycosis to bilateral toenails x10 Plan: Patient was seen at bedside this morning Labs and vitals reviewed Discussed with attending Dr. Rincon in detail Utilizing a sterile nail nipper, thickened, mycotic nails x10 to bilateral feet were sharply cut up to level of normal length without any incident. Podiatry signing off, please re-consult if any other pedal problems arise. Thank you very much for the opportunity to treat this patient.
[2017-05-11] MEDS ORDERED: Midazolam 2 MG/2 ML VIAL IVP ONE (16:27)
[2017-05-11] MEDS ORDERED: Gadodiamide 287 mg/ml 20 ml IV ONE (16:42)
--- NOTE | 2017-05-11 17:26 | MRI ---
PROCEDURE: MRI BRAIN WITH AND WITHOUT CONTRAST HISTORY: mass vs stroke COMPARISON: Noncontrast head CT from 05/10/2017 an MRI brain without contrast from 12/13/2016. TECHNIQUE: Multiplanar, multisequence MR images of the brain were obtained with and without intravenous contrast enhancement. 18 mL Omniscan was injected intravenously. FINDINGS: Examination is of suboptimal diagnostic quality due to motion degraded images. HEMORRHAGE: None DWI: No evidence of an acute or early subacute infarction. BRAIN PARENCHYMA: Allowing for motion degraded images, there is increased T2/FLAIR signal intensity in both the frontal and parietal subcortical white matter, right temporal subcortical white matter and centrum semiovale without corresponding enhancement on post-contrast images. Again seen are moderate chronic microangiopathic changes. 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 There is no mass effect or abnormal extra-axial fluid collection. ENHANCEMENT: No abnormal intracranial enhancement. VENTRICLES: There is mild age-related global parenchymal volume loss and proportionate enlargement of the ventricles and cortical sulci. . CRANIUM: Unremarkable. ORBITS: Grossly unremarkable. PARANASAL SINUSES/MASTOIDS: There is mild mucosal thickening in the paranasal sinuses and small mastoid effusions. VASCULAR SYSTEM: There are normal signal voids in the larger intracranial arteries. OTHER FINDINGS: None . IMPRESSION: 1. Abnormal signal without corresponding enhancement in bilateral frontal and parietal subcortical white matter and right temporal subcortical white matter as well as centrum semiovale, the differential considerations include atypical posterior reversible encephalopathy syndrome, hypoglycemia, and hypoxic ischemic encephalopathy. Please note repeat MRI in short-term interval is recommended when the patient's clinical condition is stable to better characterize this abnormality as this examination is of suboptimal diagnostic quality due to patient motion. 2. Moderate chronic microangiopathic changes and mild age-related global parenchymal volume loss. Small old lacunar infarction in the right cerebellar hemisphere
--- NOTE | 2017-05-11 21:55 | CP.PCM.PN ---
Subjective - Date & Time of Evaluation Date of Evaluation: 05/11/17 Time of Evaluation: 07:05 - Subjective Subjective: Patient seen and evaluated Lethargic 81 F with hx of HTN, A Fib admitted for seizure Clinically better Objective - Vital Signs/Intake and Output Vital Signs (last 24 hours): Temp Pulse Resp BP Pulse Ox 100.3 F H 96 H 23 97/61 L 96 05/11/17 16:00 05/11/17 05:43 05/11/17 05:43 05/11/17 05:43 05/11/17 16:00 Intake and Output: 05/11/17 05/12/17 18:59 06:59 Intake Total 1140 Output Total 900 Balance 240 - Medications Medications: Current Medications Apixaban (Eliquis) 2.5 mg PO BID [facility] Last Admin: 05/11/17 18:40 Dose: 2.5 mg Docusate Sodium (Colace) 100 mg PO BID [facility] Last Admin: 05/11/17 18:40 Dose: 100 mg Levetiracetam 500 mg/ Sodium (Chloride) 105 mls @ 420 mls/hr IVPB Q12H [facility] Last Admin: 05/11/17 17:30 Dose: 420 mls/hr Ceftriaxone Sodium 1 gm/ (Sodium Chloride) 100 mls @ 100 mls/hr IVPB Q12H [facility] Last Admin: 05/11/17 17:20 Dose: 100 mls/hr Vancomycin/Sodium Chloride (Vancomycin 1 Gm/Ns 200 Ml) 1 gm in 200 mls @ 133 mls/hr IVPB Q24H [facility] Stop: 05/16/17 04:01 Last Admin: 05/11/17 04:00 Dose: 133 mls/hr Metoprolol Tartrate (Lopressor) 50 mg PO BID [facility] Last Admin: 05/11/17 18:40 Dose: 50 mg Pantoprazole Sodium (Protonix Inj) 40 mg IVP DAILY [facility] Last Admin: 05/11/17 11:00 Dose: 40 mg - Labs Labs: 05/11/17 06:30 05/11/17 06:30 PT 13.0 SECONDS (9.7-12.2) H 05/10/17 13:40 INR 1.2 05/10/17 13:40 APTT 29 SECONDS (21-34) 05/10/17 13:40
[2017-05-12] MEDS: Vancomycin 1 gm/NS 200 ml 1 GM/200 ML BAG IVPB SCH (03:35)
[2017-05-12] MEDS: levETIRAcetam 500 MG in Sodium Chloride 0.9% 100 ML IVPB SCH ×2 (04:24→17:03)
[2017-05-12 06:10] LABS: BASO % 0.8 % (0.0-2.0); EOS # 0.1 K/uL (0.0-0.7); EOS % 1.8 % (0.0-4.0); HEMOGLOBIN 10.3 g/dL (11.0-16.0); LYMPH # 1.1 K/uL (1.0-4.3); LYMPH % 18.5 % (20.0-40.0); MEAN CELL VOLUME 84.3 fL (81.0-99.0); MEAN CORPUSCULAR HEMOGLOBIN 27.5 pg (27.0-31.0); MEAN CORPUSCULAR HGB CONC 32.6 g/dL (33.0-37.0); MEAN PLATELET VOLUME 8.8 fL (7.2-11.7); MONO # 0.5 K/uL (0.0-0.8); NEUT # 4.1 K/uL (1.8-7.0); NEUT % 69.9 % (50.0-75.0); NRBC % 0.1 % (0.0-2.0); RBC 3.73 Mil/uL (3.80-5.20); RED CELL DISTRIBUTION WIDTH 17.9 % (11.5-14.5); WHITE BLOOD COUNT 5.9 K/uL (4.8-10.8)
[2017-05-12 06:42] LABS: ALBUMIN 3.1 g/dL (3.5-5.0); ALT/SGPT 30 U/L (9-52); AST/SGOT 24 U/L (14-36); BLOOD UREA NITROGEN 15 mg/dL (7-17); CALCIUM 8.6 mg/dl (8.6-10.4); GFR AFRICAN-AMERICAN > 60; GFR NON-AFRICAN AMERICAN 53; MAGNESIUM 1.8 mg/dL (1.6-2.3)
--- NOTE | 2017-05-12 12:02 | PN ---
DATE: 05/12/2017 NEUROLOGICAL PROBLEM: New onset of seizure which probably is secondary to hypoperfusion syndrome versus new stroke process. PHYSICAL EXAMINATION: VITAL SIGNS: Blood pressure 97/67, mean arterial pressure of 73, respiratory rate 16, temperature afebrile. NEUROLOGIC: The patient is more awake, alert. She knows where she is and the reason for the hospitalization, also been told by her son. She moves all four extremities, still complaining of left side is heavy as per the patient. Examination otherwise no long tract sign besides left leg weaker than the right side and externally rotated. Plantars are upgoing on both sides. Cranial nerve examination normal. Speech is normal. WORKUP: EEG does not show any focal abnormal electrographic activities except nonspecific left temporal surface without any preceding or following slow activities noted, which is probably nonspecific finding. Her MRI have been reviewed which showed possible hypoperfusion syndrome, which does not fall category of posterior reversible encephalopathy syndrome. RECOMMENDATIONS: 1. Continue the Keppra for now. 2. Head in elevation. Keep the blood pressure close to 90-100. 3. Probably she needs a MRI of the brain, can be done probably at 2-3 days from now to get a followup from her previous studies. Continue the present management. DVT prophylaxis to be continued. Sloan Del Toro MD
[2017-05-13] MEDS: Vancomycin 1 gm/NS 200 ml 1 GM/200 ML BAG IVPB SCH (04:01)
[2017-05-13] MEDS: levETIRAcetam 500 MG in Sodium Chloride 0.9% 100 ML IVPB SCH ×2 (05:00→18:14)
[2017-05-13 06:48] LABS: BASO # 0.1 K/uL (0.0-0.2); BASO % 0.8 % (0.0-2.0); EOS # 0.2 K/uL (0.0-0.7); EOS % 2.5 % (0.0-4.0); HEMOGLOBIN 11.6 g/dL (11.0-16.0); LYMPH # 0.6 K/uL (1.0-4.3); LYMPH % 8.4 % (20.0-40.0); MEAN CELL VOLUME 83.8 fL (81.0-99.0); MEAN CORPUSCULAR HEMOGLOBIN 27.6 pg (27.0-31.0); MEAN CORPUSCULAR HGB CONC 32.9 g/dL (33.0-37.0); MEAN PLATELET VOLUME 8.7 fL (7.2-11.7); MONO # 0.5 K/uL (0.0-0.8); MONO % 6.7 % (0.0-10.0); NEUT # 5.7 K/uL (1.8-7.0); NEUT % 81.6 % (50.0-75.0); PLATELET COUNT 183 K/uL (130-400); RED CELL DISTRIBUTION WIDTH 17.5 % (11.5-14.5)
[2017-05-13 07:03] LABS: ALB/GLOB RATIO 1.1 (1.0-2.1); ALBUMIN 3.5 g/dL (3.5-5.0); ALT/SGPT 31 U/L (9-52); AST/SGOT 26 U/L (14-36); BLOOD UREA NITROGEN 17 mg/dL (7-17); CALCIUM 8.9 mg/dl (8.6-10.4); GFR AFRICAN-AMERICAN > 60; GFR NON-AFRICAN AMERICAN 60
[2017-05-13 09:22] LABS: NEUTROPHIL 80 % (50-75); TOTAL CELLS COUNTED 100
[2017-05-13 09:23] LABS: BANDS 1 % (0-2); EOSINOPHIL 2 % (0-4); LYMPHOCYTE 10 % (20-40); MONOCYTE 7 % (0-10)
[2017-05-13 09:24] LABS: ANISOCYTOSIS SLIGHT; LARGE PLATELETS PRESENT; MICROCYTOSIS SLIGHT; OVALOCYTES SLIGHT; PLATELET ESTIMATE NORMAL (NORMAL)
--- NOTE | 2017-05-13 20:12 | CP.PCM.PN ---
Subjective - Date & Time of Evaluation Date of Evaluation: 05/12/17 Time of Evaluation: 16:30 - Subjective Subjective: Patient seen and evaluated Denies chest pain and dyspnea Not in distress Objective - Vital Signs/Intake and Output Vital Signs (last 24 hours): Temp Pulse Resp BP Pulse Ox 98.7 F 81 20 136/69 97 05/13/17 16:00 05/13/17 12:00 05/13/17 12:00 05/13/17 12:00 05/13/17 12:00 Intake and Output: 05/13/17 05/14/17 18:59 06:59 Intake Total 280 Output Total 900 Balance -620 - Medications Medications: Current Medications Apixaban (Eliquis) 2.5 mg PO BID [facility] Last Admin: 05/13/17 18:15 Dose: 2.5 mg Docusate Sodium (Colace) 100 mg PO BID [facility] Last Admin: 05/13/17 18:15 Dose: 100 mg Levetiracetam 500 mg/ Sodium (Chloride) 105 mls @ 420 mls/hr IVPB Q12H [facility] Last Admin: 05/13/17 18:14 Dose: 420 mls/hr Ceftriaxone Sodium 1 gm/ (Sodium Chloride) 100 mls @ 100 mls/hr IVPB Q12H [facility] Last Admin: 05/13/17 15:30 Dose: 100 mls/hr Vancomycin/Sodium Chloride (Vancomycin 1 Gm/Ns 200 Ml) 1 gm in 200 mls @ 133 mls/hr IVPB Q24H [facility] Stop: 05/16/17 04:01 Last Admin: 05/13/17 04:01 Dose: 133 mls/hr Metoprolol Tartrate (Lopressor) 50 mg PO BID [facility] Last Admin: 05/13/17 18:15 Dose: 50 mg Pantoprazole Sodium (Protonix Inj) 40 mg IVP DAILY [facility] Last Admin: 05/13/17 09:42 Dose: 40 mg - Labs Labs: 05/13/17 06:38 05/13/17 06:39 PT 13.0 SECONDS (9.7-12.2) H 05/10/17 13:40 INR 1.2 05/10/17 13:40 APTT 29 SECONDS (21-34) 05/10/17 13:40
[2017-05-14] MEDS: Vancomycin 1 gm/NS 200 ml 1 GM/200 ML BAG IVPB SCH (04:50)
[2017-05-14] MEDS: levETIRAcetam 500 MG in Sodium Chloride 0.9% 100 ML IVPB SCH (06:21)
--- NOTE | 2017-05-14 09:27 | CP.PCM.PN ---
Subjective - Date & Time of Evaluation Date of Evaluation: 05/13/17 Time of Evaluation: 09:15 - Subjective Subjective: Patient seen and evaluated Not in distress A Fib rate controlled on Eliquis HTN Diastolic CHF TIA Objective - Vital Signs/Intake and Output Vital Signs (last 24 hours): Temp Pulse Resp BP Pulse Ox 99 F 111 H 16 168/96 H 98 05/14/17 08:00 05/14/17 08:00 05/14/17 08:00 05/14/17 07:39 05/14/17 06:37 Intake and Output: 05/14/17 05/14/17 06:59 18:59 Intake Total 650 Output Total 400 Balance 250 - Medications Medications: Current Medications Apixaban (Eliquis) 2.5 mg PO BID [facility] Last Admin: 05/14/17 09:21 Dose: 2.5 mg Docusate Sodium (Colace) 100 mg PO BID [facility] Last Admin: 05/14/17 09:21 Dose: 100 mg Levetiracetam 500 mg/ Sodium (Chloride) 105 mls @ 420 mls/hr IVPB Q12H [facility] Last Admin: 05/14/17 06:21 Dose: 420 mls/hr Ceftriaxone Sodium 1 gm/ (Sodium Chloride) 100 mls @ 100 mls/hr IVPB Q12H [facility] Last Admin: 05/14/17 03:28 Dose: 100 mls/hr Vancomycin/Sodium Chloride (Vancomycin 1 Gm/Ns 200 Ml) 1 gm in 200 mls @ 133 mls/hr IVPB Q24H [facility] Stop: 05/16/17 04:01 Last Admin: 05/14/17 04:50 Dose: 133 mls/hr Metoprolol Tartrate (Lopressor) 50 mg PO BID [facility] Last Admin: 05/14/17 09:21 Dose: 50 mg Pantoprazole Sodium (Protonix Inj) 40 mg IVP DAILY [facility] Last Admin: 05/14/17 09:21 Dose: 40 mg - Labs Labs: 05/13/17 06:38 05/13/17 06:39 PT 13.0 SECONDS (9.7-12.2) H 05/10/17 13:40 INR 1.2 05/10/17 13:40 APTT 29 SECONDS (21-34) 05/10/17 13:40
--- NOTE | 2017-05-14 14:57 | CP.PCM.PN ---
Subjective - Date & Time of Evaluation Date of Evaluation: 05/14/17 Time of Evaluation: 14:55 - Subjective Subjective: pt is comfortable constipation noted weak legs and unable to stand on her own no fever no more seizures noted on keppra Vitals noted afib on eliquis chest mild rales noted no edema generalised weakness noted labs noted will check labs in am PT OOB to chair will f/u Objective - Vital Signs/Intake and Output Vital Signs (last 24 hours): Temp Pulse Resp BP Pulse Ox 99 F 89 14 164/87 H 95 05/14/17 12:00 05/14/17 12:07 05/14/17 12:07 05/14/17 12:07 05/14/17 12:07 Intake and Output: 05/14/17 05/14/17 06:59 18:59 Intake Total 850 Output Total 400 Balance 450 - Medications Medications: Current Medications Apixaban (Eliquis) 2.5 mg PO BID [facility] Last Admin: 05/14/17 09:21 Dose: 2.5 mg Docusate Sodium (Colace) 100 mg PO BID [facility] Last Admin: 05/14/17 09:21 Dose: 100 mg Levetiracetam 500 mg/ Sodium (Chloride) 105 mls @ 420 mls/hr IVPB Q12H [facility] Last Admin: 05/14/17 06:21 Dose: 420 mls/hr Ceftriaxone Sodium 1 gm/ (Sodium Chloride) 100 mls @ 100 mls/hr IVPB Q12H [facility] Last Admin: 05/14/17 03:28 Dose: 100 mls/hr Vancomycin/Sodium Chloride (Vancomycin 1 Gm/Ns 200 Ml) 1 gm in 200 mls @ 133 mls/hr IVPB Q24H [facility] Stop: 05/16/17 04:01 Last Admin: 05/14/17 04:50 Dose: 133 mls/hr Metoprolol Tartrate (Lopressor) 50 mg PO BID [facility] Last Admin: 05/14/17 09:21 Dose: 50 mg Pantoprazole Sodium (Protonix Inj) 40 mg IVP DAILY [facility] Last Admin: 05/14/17 09:21 Dose: 40 mg - Labs Labs: 05/13/17 06:38 05/13/17 06:39 PT 13.0 SECONDS (9.7-12.2) H 05/10/17 13:40 INR 1.2 05/10/17 13:40 APTT 29 SECONDS (21-34) 05/10/17 13:40
--- NOTE | 2017-05-14 15:02 | CP.PCM.PN ---
Subjective - Date & Time of Evaluation Date of Evaluation: 05/11/17 Time of Evaluation: 15:00 - Subjective Subjective: pt still having weakness and sleepy pending MRI family at bed side on cardizem drip doing better than yesterday clinically exam improving mentation output better labs noted pt with new onset seizures no clear source pneumonia likely on antibiotic less likley meningitis Objective - Vital Signs/Intake and Output Vital Signs (last 24 hours): Temp Pulse Resp BP Pulse Ox 99 F 89 14 164/87 H 95 05/14/17 12:00 05/14/17 12:07 05/14/17 12:07 05/14/17 12:07 05/14/17 12:07 Intake and Output: 05/14/17 05/14/17 06:59 18:59 Intake Total 850 Output Total 400 Balance 450 - Medications Medications: Current Medications Apixaban (Eliquis) 2.5 mg PO BID [facility] Last Admin: 05/14/17 09:21 Dose: 2.5 mg Ceftriaxone Sodium 1 gm/ (Sodium Chloride) 100 mls @ 100 mls/hr IVPB Q12H [facility] Last Admin: 05/14/17 03:28 Dose: 100 mls/hr Vancomycin/Sodium Chloride (Vancomycin 1 Gm/Ns 200 Ml) 1 gm in 200 mls @ 133 mls/hr IVPB Q24H [facility] Stop: 05/16/17 04:01 Last Admin: 05/14/17 04:50 Dose: 133 mls/hr Metoprolol Tartrate (Lopressor) 50 mg PO BID [facility] Last Admin: 05/14/17 09:21 Dose: 50 mg - Labs Labs: 05/13/17 06:38 05/13/17 06:39 PT 13.0 SECONDS (9.7-12.2) H 05/10/17 13:40 INR 1.2 05/10/17 13:40 APTT 29 SECONDS (21-34) 05/10/17 13:40
--- NOTE | 2017-05-14 15:03 | CP.PCM.PN ---
Subjective - Date & Time of Evaluation Date of Evaluation: 05/12/17 Time of Evaluation: 15:02 - Subjective Subjective: more awake responding no chest pain off cardizem vitals noted continue the keppra will f/u Objective - Vital Signs/Intake and Output Vital Signs (last 24 hours): Temp Pulse Resp BP Pulse Ox 99 F 89 14 164/87 H 95 05/14/17 12:00 05/14/17 12:07 05/14/17 12:07 05/14/17 12:07 05/14/17 12:07 Intake and Output: 05/14/17 05/14/17 06:59 18:59 Intake Total 850 Output Total 400 Balance 450 - Medications Medications: Current Medications Apixaban (Eliquis) 2.5 mg PO BID [facility] Last Admin: 05/14/17 09:21 Dose: 2.5 mg Docusate Sodium (Colace) 100 mg PO TID [facility] Famotidine (Pepcid) 20 mg PO BID [facility] Ceftriaxone Sodium 1 gm/ (Sodium Chloride) 100 mls @ 100 mls/hr IVPB Q12H [facility] Last Admin: 05/14/17 03:28 Dose: 100 mls/hr Vancomycin/Sodium Chloride (Vancomycin 1 Gm/Ns 200 Ml) 1 gm in 200 mls @ 133 mls/hr IVPB Q24H [facility] Stop: 05/16/17 04:01 Last Admin: 05/14/17 04:50 Dose: 133 mls/hr Lactulose (Enulose) 20 gm PO HS [facility] Levetiracetam (Keppra) 500 mg PO BID [facility] Metoprolol Tartrate (Lopressor) 50 mg PO BID [facility] Last Admin: 05/14/17 09:21 Dose: 50 mg - Labs Labs: 05/13/17 06:38 05/13/17 06:39 PT 13.0 SECONDS (9.7-12.2) H 05/10/17 13:40 INR 1.2 05/10/17 13:40 APTT 29 SECONDS (21-34) 05/10/17 13:40
--- NOTE | 2017-05-14 15:04 | CP.PCM.PN ---
Subjective - Date & Time of Evaluation Date of Evaluation: 05/13/17 Time of Evaluation: 15:03 - Subjective Subjective: pt is feeling weak chest pain negative family at bed side no chills no BM eating ok still puree awake responding vitals stable chest clear abd soft no edema weakness generalised labs noted pt with afib HTn CRI aspiration pneumonia Seizures on keppra will f/u Objective - Vital Signs/Intake and Output Vital Signs (last 24 hours): Temp Pulse Resp BP Pulse Ox 99 F 89 14 164/87 H 95 05/14/17 12:00 05/14/17 12:07 05/14/17 12:07 05/14/17 12:07 05/14/17 12:07 Intake and Output: 05/14/17 05/14/17 06:59 18:59 Intake Total 850 Output Total 400 Balance 450 - Medications Medications: Current Medications Apixaban (Eliquis) 2.5 mg PO BID [facility] Last Admin: 05/14/17 09:21 Dose: 2.5 mg Docusate Sodium (Colace) 100 mg PO TID [facility] Famotidine (Pepcid) 20 mg PO BID [facility] Ceftriaxone Sodium 1 gm/ (Sodium Chloride) 100 mls @ 100 mls/hr IVPB Q12H [facility] Last Admin: 05/14/17 03:28 Dose: 100 mls/hr Vancomycin/Sodium Chloride (Vancomycin 1 Gm/Ns 200 Ml) 1 gm in 200 mls @ 133 mls/hr IVPB Q24H [facility] Stop: 05/16/17 04:01 Last Admin: 05/14/17 04:50 Dose: 133 mls/hr Lactulose (Enulose) 20 gm PO HS [facility] Levetiracetam (Keppra) 500 mg PO BID [facility] Metoprolol Tartrate (Lopressor) 50 mg PO BID [facility] Last Admin: 05/14/17 09:21 Dose: 50 mg - Labs Labs: 05/13/17 06:38 05/13/17 06:39 PT 13.0 SECONDS (9.7-12.2) H 05/10/17 13:40 INR 1.2 05/10/17 13:40 APTT 29 SECONDS (21-34) 05/10/17 13:40
--- NOTE | 2017-05-14 21:33 | CP.PCM.PN ---
Subjective - Date & Time of Evaluation Date of Evaluation: 05/14/17 Time of Evaluation: 15:10 - Subjective Subjective: Patient seen and evaluated Not in distress A Fib rate controlled on Eliquis HTN Diastolic CHF TIA Objective - Vital Signs/Intake and Output Vital Signs (last 24 hours): Temp Pulse Resp BP Pulse Ox 99.3 F 92 H 24 152/74 H 95 05/14/17 20:00 05/14/17 20:00 05/14/17 20:00 05/14/17 20:00 05/14/17 20:00 Intake and Output: 05/14/17 05/15/17 18:59 06:59 Intake Total 1250 Output Total 700 Balance 550 - Medications Medications: Current Medications Apixaban (Eliquis) 2.5 mg PO BID [facility] Last Admin: 05/14/17 17:06 Dose: 2.5 mg Docusate Sodium (Colace) 100 mg PO TID [facility] Last Admin: 05/14/17 17:06 Dose: 100 mg Famotidine (Pepcid) 20 mg PO BID [facility] Last Admin: 05/14/17 17:07 Dose: 20 mg Ceftriaxone Sodium 1 gm/ (Sodium Chloride) 100 mls @ 100 mls/hr IVPB Q12H [facility] Last Admin: 05/14/17 15:08 Dose: 100 mls/hr Vancomycin/Sodium Chloride (Vancomycin 1 Gm/Ns 200 Ml) 1 gm in 200 mls @ 133 mls/hr IVPB Q24H [facility] Stop: 05/16/17 04:01 Last Admin: 05/14/17 04:50 Dose: 133 mls/hr Lactulose (Enulose) 20 gm PO [facility] Last Admin: 05/14/17 21:27 Dose: 20 gm Levetiracetam (Keppra) 500 mg PO BID [facility] Last Admin: 05/14/17 17:07 Dose: 500 mg Metoprolol Tartrate (Lopressor) 50 mg PO BID [facility] Last Admin: 05/14/17 17:07 Dose: 50 mg - Labs Labs: 05/13/17 06:38 05/13/17 06:39 PT 13.0 SECONDS (9.7-12.2) H 05/10/17 13:40 INR 1.2 05/10/17 13:40 APTT 29 SECONDS (21-34) 05/10/17 13:40
[2017-05-15] MEDS ORDERED: Gadodiamide 287 mg/ml 20 ml IV ONE (03:02)
[2017-05-15] MEDS: Vancomycin 1 gm/NS 200 ml 1 GM/200 ML BAG IVPB SCH (05:35)
[2017-05-15 06:56] LABS: BASO % 0.4 % (0.0-2.0); EOS # 0.1 K/uL (0.0-0.7); EOS % 0.7 % (0.0-4.0); HEMOGLOBIN 11.2 g/dL (11.0-16.0); LYMPH # 0.6 K/uL (1.0-4.3); LYMPH % 6.5 % (20.0-40.0); MEAN CORPUSCULAR HEMOGLOBIN 27.1 pg (27.0-31.0); MEAN CORPUSCULAR HGB CONC 32.7 g/dL (33.0-37.0); MEAN PLATELET VOLUME 8.8 fL (7.2-11.7); MONO % 10.4 % (0.0-10.0); NEUT # 7.9 K/uL (1.8-7.0); PLATELET COUNT 211 K/uL (130-400); RBC 4.14 Mil/uL (3.80-5.20); RED CELL DISTRIBUTION WIDTH 17.3 % (11.5-14.5); WHITE BLOOD COUNT 9.6 K/uL (4.8-10.8)
[2017-05-15 07:07] LABS: ALBUMIN 3.3 g/dL (3.5-5.0); ALT/SGPT 31 U/L (9-52); AST/SGOT 23 U/L (14-36); BLOOD UREA NITROGEN 19 mg/dL (7-17); CALCIUM 8.6 mg/dl (8.6-10.4); GFR AFRICAN-AMERICAN > 60; GFR NON-AFRICAN AMERICAN 53
[2017-05-15 07:19] LABS: ALB/GLOB RATIO 1.1 (1.0-2.1)
--- NOTE | 2017-05-15 08:18 | CP.PCM.PN ---
Subjective - Date & Time of Evaluation Date of Evaluation: 05/15/17 Time of Evaluation: 08:15 - Subjective Subjective: pt feeling weak eating ok but less no BM yet tachy mild and had temp 101.6 no diarrhea cough noted mild mucous noted vitals noted Temp Pulse Resp BP Pulse Ox 98.7 F 107 H 28 H 173/93 H 95 05/15/17 04:00 05/15/17 00:00 05/15/17 00:00 05/15/17 00:00 05/15/17 00:00 chest mild wheezing noted and rales noted irregular hs abd soft edema negative labs noted 05/15/17 06:44 05/15/17 06:44 wbc normal cxr showing infitratve changes mild and rt lung basal atelectasis a/p: pt with afib, htn on anticoagulation possible aspiration pneumonia UTI new seiUZres possible 2* sepsis weakness OOB to chair continue current treatment culture antibiotic will d/c vanco and get culture again Objective - Vital Signs/Intake and Output Vital Signs (last 24 hours): Temp Pulse Resp BP Pulse Ox 98.7 F 107 H 28 H 173/93 H 95 05/15/17 04:00 05/15/17 00:00 05/15/17 00:00 05/15/17 00:00 05/15/17 00:00 Intake and Output: 05/15/17 05/15/17 06:59 18:59 Intake Total 650 Output Total 200 Balance 450 - Medications Medications: Current Medications Acetaminophen (Tylenol 325mg Tab) 650 mg PO Q6 PRN PRN Reason: Temperature Albuterol/Ipratropium (Duoneb 3 Mg/0.5 Mg (3 Ml) Ud) 3 ml INH Q8 [facility] Apixaban (Eliquis) 2.5 mg PO BID [facility] Last Admin: 05/14/17 17:06 Dose: 2.5 mg Docusate Sodium (Colace) 100 mg PO TID [facility] Last Admin: 05/14/17 17:06 Dose: 100 mg Famotidine (Pepcid) 20 mg PO BID [facility] Last Admin: 05/14/17 17:07 Dose: 20 mg Ceftriaxone Sodium 1 gm/ (Sodium Chloride) 100 mls @ 100 mls/hr IVPB Q12H [facility] Last Admin: 05/15/17 03:33 Dose: 100 mls/hr Vancomycin/Sodium Chloride (Vancomycin 1 Gm/Ns 200 Ml) 1 gm in 200 mls @ 133 mls/hr IVPB Q24H [facility] Stop: 05/16/17 04:01 Last Admin: 05/15/17 05:35 Dose: 133 mls/hr Lactulose (Enulose) 20 gm PO HS [facility] Last Admin: 05/14/17 21:27 Dose: 20 gm Levetiracetam (Keppra) 500 mg PO BID [facility] Last Admin: 05/14/17 17:07 Dose: 500 mg Metoprolol Tartrate (Lopressor) 50 mg PO BID [facility] Last Admin: 05/14/17 17:07 Dose: 50 mg - Labs Labs: 05/15/17 06:44 05/15/17 06:44 PT 13.0 SECONDS (9.7-12.2) H 05/10/17 13:40 INR 1.2 05/10/17 13:40 APTT 29 SECONDS (21-34) 05/10/17 13:40
[2017-05-15] MEDS ORDERED: Potassium Chloride 20 mEq/15 ml LIQ UD PO ONE (08:19)
[2017-05-15 08:49] LABS: ANISOCYTOSIS SLIGHT; EOSINOPHIL 1 % (0-4); LYMPHOCYTE 3 % (20-40); MONOCYTE 6 % (0-10); NEUTROPHIL 90 % (50-75); PLATELET ESTIMATE NORMAL (NORMAL); TOTAL CELLS COUNTED 100
[2017-05-15 08:50] LABS: HYPOCHROMIC SLIGHT; OVALOCYTES SLIGHT; POLYCHROMIC SLIGHT
--- NOTE | 2017-05-15 09:05 | RAD ---
Chest x-ray single frontal view History: Pneumonia. Comparison: 05/10/2017 Findings: Mild venous congestion. Right hilar prominence. Cardiomegaly. Degenerative changes spine and shoulders. Impression: Mild venous congestion with cardiomegaly.
[2017-05-15] MEDS: Albuterol-Ipratrop 3 mg / 0.5 (3 ml) UD INH SCH ×2 (09:30→16:16)
[2017-05-15] MEDS: Lactobacillus Acidophilus 500 MU Cap PO SCH ×2 (09:54→17:46)
--- NOTE | 2017-05-15 11:25 | PN ---
DATE: 05/15/2017 NEUROLOGICAL PROBLEM: New onset of seizures, mild left hemiparesis. PHYSICAL EXAMINATION VITAL SIGNS: Blood pressure 173/93, mean arterial pressure of 119, respiratory rate 18, temperature 98.9 with a pulse rate 107. GENERAL: The patient is more awake, alert and oriented to person, place and time. The patient's speech is clear. Naming and repetition intact. She follows one to two step commands. Still complaining of left leg has been heavier than the right leg. States she could able to move her legs. Deep tendon reflexes are absent. Plantars are upgoing on her left side. RECOMMENDATIONS: 1. Continue the Keppra for now as recommended. 2. 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 3. If medically stable, the patient can be moved to the telemetry. The patient will be followed closely while she is in the hospital. Sloan Del Toro MD
--- NOTE | 2017-05-15 16:16 | MRI ---
PROCEDURE: MRI of the brain dated 05/15/2016. HISTORY: Atypical PRES COMPARISON: Comparison made with prior MRI of the brain dated 05/11/2017. Study is limited by motion artifact TECHNIQUE: Multiplanar, multisequence MR images of the brain were obtained with and without intravenous contrast enhancement. Approximately 18 cc Omniscan contrast material injected for this procedure. FINDINGS: HEMORRHAGE: No acute parenchymal, subarachnoid nor extra-axial hemorrhage. No evidence of hemosiderin deposition identified within gradient echo weighted images. DWI: No evidence of an acute or early subacute infarction seen on diffusion imaging. . BRAIN PARENCHYMA: Re- demonstrated are nonenhancing nonspecific prolonged T2 signal changes within the posterior temporal and posterior frontoparietal cortical and subcortical regions questionably improved. Mild vague prolonged T2 signal changes are also felt to be present within the cerebellum and mid upper brainstem. Findings may represent sequela of PRES. In addition, there are felt to represent moderate diffuse/confluent chronic periventricular white matter ischemic changes on which extend peripherally into the deep and subcortical white matter both cerebral hemispheres. . The lacunar type infarct right cerebral peduncle. Moderate generalized volume loss. ENHANCEMENT: No enhancing parenchymal nor extra-axial masses or collections. No evidence of unusual meningeal enhancement. VENTRICLES: No obstructive hydrocephalus. . CRANIUM: Unremarkable. ORBITS: Changes of bilateral cataract surgery again noted PARANASAL SINUSES/MASTOIDS: Lobulated mucosal thickening noted within both maxillary antra. There is mild mucosal thickening within the ethmoid air complex extending superiorly into the inferior margins of the frontal sinus. Partial opacification both mastoid air complexes. VASCULAR SYSTEM: The visualized major vascular flow voids at skull base patent. OTHER FINDINGS: None . IMPRESSION: Limited motion degraded study. Re- demonstrated are nonenhancing nonspecific prolonged T2 signal changes within the posterior temporal and posterior frontoparietal cortical and subcortical regions questionably improved. Mild vague prolonged T2 signal changes are also felt to be present within the cerebellum and mid upper brainstem. Findings may represent sequela of PRES. In addition, concomitant moderate diffuse/confluent chronic periventricular white matter ischemic changes on which extend peripherally into the deep and subcortical white matter both cerebral hemispheres also felt to be present. Questionable chronic lacunar type infarct right cerebral peduncle. Moderate generalized volume loss No enhancing type the parenchymal nor extra-axial masses or collections. No evidence of unusual meningeal enhancement.
[2017-05-16] MEDS: Albuterol-Ipratrop 3 mg / 0.5 (3 ml) UD INH SCH ×3 (00:10→19:27)
[2017-05-16] MEDS: Lactobacillus Acidophilus 500 MU Cap PO SCH ×2 (09:39→18:40)
--- NOTE | 2017-05-17 00:37 | CP.PCM.PN ---
Subjective - Date & Time of Evaluation Date of Evaluation: 05/16/17 Time of Evaluation: 17:20 - Subjective Subjective: Patient seen and evaluated Deneis chest pain and dyspnea A Fib CVA? CAD Medical management Objective - Vital Signs/Intake and Output Vital Signs (last 24 hours): Temp Pulse Resp BP Pulse Ox 98.5 F 85 20 119/63 94 L 05/17/17 00:00 05/17/17 00:00 05/17/17 00:00 05/17/17 00:00 05/17/17 00:00 Intake and Output: 05/16/17 05/17/17 18:59 06:59 Intake Total 850 Output Total 300 Balance 550 - Medications Medications: Current Medications Acetaminophen (Tylenol 325mg Tab) 650 mg PO Q6 PRN PRN Reason: Temperature Last Admin: 05/16/17 13:17 Dose: 650 mg Albuterol/Ipratropium (Duoneb 3 Mg/0.5 Mg (3 Ml) Ud) 3 ml INH RQ8 [facility] Last Admin: 05/16/17 19:27 Dose: 3 ml Apixaban (Eliquis) 2.5 mg PO BID [facility] Last Admin: 05/16/17 18:40 Dose: 2.5 mg Docusate Sodium (Colace) 100 mg PO TID [facility] Last Admin: 05/16/17 18:40 Dose: 100 mg Famotidine (Pepcid) 20 mg PO BID [facility] Last Admin: 05/16/17 18:40 Dose: 20 mg Ceftriaxone Sodium 1 gm/ (Sodium Chloride) 100 mls @ 100 mls/hr IVPB Q12H [facility] Last Admin: 05/16/17 16:00 Dose: 100 mls/hr Lactobacillus Acidophilus (Bacid Acidophilus) 1 cap PO BID [facility] Last Admin: 05/16/17 18:40 Dose: 1 cap Lactulose (Enulose) 20 gm PO HS [facility] Last Admin: 05/16/17 21:49 Dose: 20 gm Levetiracetam (Keppra) 500 mg PO BID [facility] Last Admin: 05/16/17 18:40 Dose: 500 mg Metoprolol Tartrate (Lopressor) 50 mg PO BID [facility] Last Admin: 05/16/17 18:40 Dose: 50 mg - Labs Labs: 05/15/17 06:44 05/15/17 06:44 PT 13.0 SECONDS (9.7-12.2) H 05/10/17 13:40 INR 1.2 05/10/17 13:40 APTT 29 SECONDS (21-34) 05/10/17 13:40
[2017-05-17] MEDS: Albuterol-Ipratrop 3 mg / 0.5 (3 ml) UD INH SCH ×2 (00:56→07:10)
[2017-05-17 06:42] LABS: BASO # 0.1 K/uL (0.0-0.2); EOS # 0.3 K/uL (0.0-0.7); EOS % 4.4 % (0.0-4.0); HEMOGLOBIN 10.2 g/dL (11.0-16.0); LYMPH % 14.7 % (20.0-40.0); MEAN CELL VOLUME 84.1 fL (81.0-99.0); MEAN CORPUSCULAR HEMOGLOBIN 26.9 pg (27.0-31.0); MEAN CORPUSCULAR HGB CONC 31.9 g/dL (33.0-37.0); MEAN PLATELET VOLUME 9.2 fL (7.2-11.7); MONO # 0.7 K/uL (0.0-0.8); NEUT # 4.7 K/uL (1.8-7.0); NEUT % 68.9 % (50.0-75.0); RBC 3.78 Mil/uL (3.80-5.20); RED CELL DISTRIBUTION WIDTH 17.8 % (11.5-14.5); WHITE BLOOD COUNT 6.8 K/uL (4.8-10.8)
[2017-05-17 07:20] LABS: ALB/GLOB RATIO 0.9 (1.0-2.1); ALBUMIN 3.2 g/dL (3.5-5.0); CALCIUM 8.8 mg/dl (8.6-10.4)
[2017-05-17 08:36] VITALS: O2SAT 92
[2017-05-17] MEDS: Lactobacillus Acidophilus 500 MU Cap PO SCH (09:33)
--- NOTE | 2017-05-17 10:47 | PN ---
DATE: NEUROLOGICAL FOLLOWUP: Hypoperfusion syndrome manifesting with seizures. PHYSICAL EXAMINATION: VITAL SIGNS: Blood pressure 129/83, mean arterial pressure of 98, respiratory rate 16, temperature 98.4, pulse rate 98. NEUROLOGIC: The patient is more awake, alert, oriented to person, place and time. No confusion, no hallucination, no depression. The patient is comfortable lying down without any respiratory distress. Cranial nerve examination is within normal. Motor examination: Mild left hemiparesis which is persistent since the day of the admission. Deep tendon reflexes are trace. Plantars are equivocal response on the right side and left side was upgoing. Rest of the examination is unchanged to compare with my previous exam. LABORATORY DATA: MRA of the brain reviewed by me showed resolving PRES. There is right cerebellar peduncular medium-sized lacunar infarct. This is probably her left hemiparesis which is preexisting as per radiological and my clinical examination. RECOMMENDATION: Continue the present management, antiplatelets as she has been taking. Continue Eliquis as requested. The patient should be continuing Keppra which should be at least for 6 months if the patient is asymptomatic for the last 6 months without any seizures and I will do further workup and I will discontinue slowly as that can be done as outpatient. Extended discussion with the patient about her discharge plan from the hospital. Sloan Del Toro MD
--- NOTE | 2017-05-17 11:54 | CP.PCM.PN ---
Subjective - Date & Time of Evaluation Date of Evaluation: 05/17/17 Time of Evaluation: 11:53 - Subjective Subjective: PATIENT SEEN AND EXAMINED TODAY, DENIES ANY PAIN, SOB, RESPIRATION EASY AND UNLABORED. NAD Objective - Vital Signs/Intake and Output Vital Signs (last 24 hours): Temp Pulse Resp BP Pulse Ox 97.7 F 105 H 18 120/84 92 L 05/17/17 08:00 05/17/17 08:00 05/17/17 08:00 05/17/17 08:00 05/17/17 08:00 Intake and Output: 05/17/17 05/17/17 06:59 18:59 Intake Total 240 Output Total 500 Balance -260 - Medications Medications: Current Medications Acetaminophen (Tylenol 325mg Tab) 650 mg PO Q6 PRN PRN Reason: Temperature Last Admin: 05/16/17 13:17 Dose: 650 mg Albuterol/Ipratropium (Duoneb 3 Mg/0.5 Mg (3 Ml) Ud) 3 ml INH RQ8 [facility] Last Admin: 05/17/17 07:10 Dose: 3 ml Apixaban (Eliquis) 2.5 mg PO BID [facility] Last Admin: 05/17/17 09:33 Dose: 2.5 mg Docusate Sodium (Colace) 100 mg PO TID [facility] Last Admin: 05/17/17 09:33 Dose: 100 mg Famotidine (Pepcid) 20 mg PO BID [facility] Last Admin: 05/17/17 09:33 Dose: 20 mg Ceftriaxone Sodium 1 gm/ (Sodium Chloride) 100 mls @ 100 mls/hr IVPB Q12H [facility] Last Admin: 05/17/17 02:47 Dose: 100 mls/hr Lactobacillus Acidophilus (Bacid Acidophilus) 1 cap PO BID [facility] Last Admin: 05/17/17 09:33 Dose: 1 cap Lactulose (Enulose) 20 gm PO HS [facility] Last Admin: 05/16/17 21:49 Dose: 20 gm Levetiracetam (Keppra) 500 mg PO BID [facility] Last Admin: 05/17/17 09:33 Dose: 500 mg Metoprolol Tartrate (Lopressor) 50 mg PO BID [facility] Last Admin: 05/17/17 09:37 Dose: 50 mg - Labs Labs: 05/17/17 06:37 01/10/18 06:37 PT 13.0 SECONDS (9.7-12.2) H 05/10/17 13:40 INR 1.2 05/10/17 13:40 APTT 29 SECONDS (21-34) 05/10/17 13:40 Assessment and Plan - Assessment and Plan (Free Text) Plan: 81 Y/O FEMALE WITH PMHX OF AFIB, HTN ADMITTED FOR NEW ONSET OF SEIZURE AT HOME CONTROLLED WITH KEPPRA WHILE HERE CT HEAD - NO ACUTE FINDINGS MRI HEAD - NO ACUTE FINDINGS, SMALL OLD LACUNAR 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 MARCIAL AND DR. DAWSON
[2017-05-17 16:32] VITALS: BP 114/65; PULSE 97; RESP 17; TEMP 98.7
--- NOTE | 2017-05-18 14:08 | EEG ---
DATE: This is a 16-channel electroencephalogram of awake and lethargic adult. During the study, photic stimulation was performed. Hyperventilation was not performed. The resting electroencephalogram consists of diffuse high-amplitude delta activities seen at parietal and occipital leads. Anteriorly, the fast activities superimposed with 2 to 3 Hz delta activities seen. There is sharp wave activities noted at the left frontal leads with frequency of 5 to 6 Hz, which is followed with generalized slow activities. These activities did not follow any slow activities, which maybe not the clinical significance. During the study, photic stimulation did not evoke driving response noted at 2 to 20 Hz. IMPRESSION: This is an abnormal electroencephalogram because of persistent slowing throughout the record suggestive of bilateral cerebral dysfunction. This is probably secondary to metabolic, vascular or degenerative process. Please correlate the finding with the neurological and radiological studies. Sloan Del Toro MD [facility] # [id number]
--- NOTE | 2017-06-20 12:43 | PN ---
DATE: 05/16/2017. SUBJECTIVE: The patient was seen by me in the morning time. The patient is feeling much better. She has no chest pain or shortness of breath. She still continues to have atrial fibrillation. She denied any other major active symptoms currently. PHYSICAL EXAMINATION: VITAL SIGNS: Temperature 98.5, pulse 85, respirations 20, blood pressure 119/63, saturation is 94%. CHEST: Bilateral good air entry. No wheezing or rales noted. HEART: Regular heart sounds. ABDOMEN: Nontender. LABORATORY DATA: Recent labs reviewed, nonspecific. ASSESSMENT AND RECOMMENDATIONS: The patient is 81-year-old female with history of atrial fibrillation, hypertension, admitted with altered mental status and fall. The patient was noted to have a seizure episode, seizure activity. Urinary tract infection and urinary sepsis. Controlled heart rate . We will continue the current antibiotics and will followup the patient. Possibly, the patient will be discharged home tomorrow. Kolby Redman MD
--- NOTE | 2017-06-21 02:32 | DS ---
HISTORY OF PRESENT ILLNESS: The patient is an 81-year-old female with history of hypertension, hypercholesterolemia, osteoarthritis, atrial fibrillation, renal insufficiency, on anticoagulation, hospitalized with new onset seizure activity, recognized by the ambulance and EMS. The patient was noted to have confusion and altered mental status. Upon arrival from the EMS, the patient started having seizure activities. In the emergency room, the patient was evaluated, underwent CAT scan of the head, suggested no acute pathology but continued to have confusion. The patient needed immediate attention. The patient was hospitalized and she was admitted initially to the intensive care unit with possible status epilepticus. PAST MEDICAL HISTORY: Hypertension, high cholesterol, osteoarthritis, atrial fibrillation, renal insufficiency. ALLERGIES: NO HISTORY OF ALLERGY. SOCIAL HISTORY: Nonsmoker. SURGICAL HISTORY: Otherwise none. VITAL SIGNS AND LABS: Reviewed. HOSPITAL COURSE: Upon hospitalization, the patient started having new onset seizure activities diagnosis and the patient hospitalized to the intensive care unit. Initially, the patient was started on Keppra. Neurology evaluation was called. Cardizem drip started for atrial fibrillation. She was initially hospitalized to the intensive care unit. During the stay, the patient was noted to have urinary tract infection and also positive urine suspected UTI, but there was no growth. Blood work was nonspecific otherwise. Prolactin level was elevated. Other labs were nonspecific. The patient was seen by neurologist, MRI of the brain was done. 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 After discussion with the contact center director, the patient will continue with Keppra. She will also continue on anticoagulation. Clinically, the patient is stable. She will be discharged to the rehabilitation center and she will follow up by me and then she will be discharged from there. We will follow up with the patient. Kolby Redman MD
== END 2017-05-17 15:25 | disposition home or self-care (01) | DRG 100 ==
LOC: C.ER 13:20 → C.9E 16:17 → C.9I 20:16
PROVIDERS: ADMIT Internal Medicine; ATTEND Internal Medicine
DX: R56.9 Unspecified convulsions (principal); G93.41 Metabolic encephalopathy; E87.2 Acidosis; I48.91 Unspecified atrial fibrillation; I50.30 Unspecified diastolic (congestive) heart failure; I13.0 Hypertensive heart and chronic kidney disease with heart failure and stage 1 through stage 4 chronic kidney disease, or unspecified chronic kidney disease; B35.1 Tinea unguium; I25.10 Atherosclerotic heart disease of native coronary artery without angina pectoris; E78.5 Hyperlipidemia, unspecified; N39.0 Urinary tract infection, site not specified; I48.92 Unspecified atrial flutter; K59.00 Constipation, unspecified; N18.9 Chronic kidney disease, unspecified; Z87.891 Personal history of nicotine dependence

== ENCOUNTER 2017-06-23 15:46 | Observation (INO) | payer MEDICARE ==
[2017-06-23 16:39] VITALS: BMI 32.9
[2017-06-23 17:51] LABS: BASO # 0.1 K/uL (0.0-0.2); BASO % 1.1 % (0.0-2.0); EOS # 0.1 K/uL (0.0-0.7); EOS % 0.7 % (0.0-4.0); HEMOGLOBIN 11.7 g/dL (11.0-16.0); LYMPH # 1.2 K/uL (1.0-4.3); LYMPH % 15.4 % (20.0-40.0); MEAN CELL VOLUME 82.9 fL (81.0-99.0); MEAN CORPUSCULAR HEMOGLOBIN 26.8 pg (27.0-31.0); MEAN CORPUSCULAR HGB CONC 32.3 g/dL (33.0-37.0); MEAN PLATELET VOLUME 8.8 fL (7.2-11.7); MONO # 0.5 K/uL (0.0-0.8); MONO % 6.9 % (0.0-10.0); NEUT # 5.7 K/uL (1.8-7.0); NEUT % 75.9 % (50.0-75.0); NRBC % 0.1 % (0.0-2.0); RBC 4.38 Mil/uL (3.80-5.20); RED CELL DISTRIBUTION WIDTH 17.7 % (11.5-14.5); WHITE BLOOD COUNT 7.5 K/uL (4.8-10.8)
[2017-06-23 17:58] LABS: INR 1.2; PROTHROMBIN TIME 13.5 SECONDS (9.7-12.2)
[2017-06-23 17:59] LABS: ALB/GLOB RATIO 1.2 (1.0-2.1); ALT/SGPT 28 U/L (9-52); AST/SGOT 34 U/L (14-36); BLOOD UREA NITROGEN 19 mg/dL (7-17); CALCIUM 10.3 mg/dl (8.6-10.4); GFR AFRICAN-AMERICAN > 60; GFR NON-AFRICAN AMERICAN 53
[2017-06-23 18:11] LABS: B-TYPE NATRIURETIC PEPTIDE 939 pg/mL (0-900); CK-MB 1.08 ng/mL (0.0-3.38)
--- NOTE | 2017-06-23 18:11 | CT ---
PROCEDURE: CT HEAD WITHOUT CONTRAST. HISTORY: Dizziness, R/O Bleed COMPARISON: 05/10/2017 CT head 05/11/2017 MRI brain 05/15/2017 MRI brain TECHNIQUE: Axial computed tomography images were obtained through the head/brain without intravenous contrast. Coronal and sagittal reconstructed images. Radiation dose: Total exam DLP = 1027.04 mGy-cm. This CT exam was performed using one or more of the following dose reduction techniques: Automated exposure control, adjustment of the mA and/or kV according to patient size, and/or use of iterative reconstruction technique. FINDINGS: HEMORRHAGE: No intracranial hemorrhage. BRAIN: No mass effect or edema. Cortical atrophy, periventricular small vessel disease. VENTRICLES: Unremarkable. No hydrocephalus. CALVARIUM: Unremarkable. Hyperostotic changes frontal regions of benign common normal variant PARANASAL SINUSES: Unremarkable as visualized. No significant inflammatory changes. MASTOID AIR CELLS: Unremarkable as visualized. No inflammatory changes. OTHER FINDINGS: None. IMPRESSION: No acute intracranial abnormalities. No significant findings to account for the clinical presentation. No significant interval change compared to the prior examination(s).
--- NOTE | 2017-06-23 18:11 | C.PDOC ---
History Of Present Illness 81-year-old female, is sent to the emergency department by Dr Redman with complaints of dizziness described as room spinning since yesterday that is associated with an episode of non-bilious/non-bloody vomiting prior to arrival. Patient has a Hx of atrial fibrillation, and Dr Redman was concerned because patient has been experiencing intermittent palpitations and high blood pressure for the past few days. No chest pain or shortness of breath. Time Seen by Provider: 06/23/17 17:20 Chief Complaint (Nursing): Dizziness/Lightheaded History Per: Patient History/Exam Limitations: no limitations Onset/Duration Of Symptoms: Days Past Medical History Reviewed: Historical Data, Nursing Documentation, Vital Signs Vital Signs: Last Vital Signs Temp 98.7 F 06/23/17 16:39 Pulse 112 H 06/23/17 17:52 Resp 18 06/23/17 17:52 BP 181/95 H 06/23/17 17:52 Pulse Ox 95 06/23/17 18:30 - Medical History PMH: Arthritis (OA), Atrial Fibrillation (new onset ), HTN, Hypercholesterolemia , Osteoporosis, Chronic Kidney Disease, Seizures (new onset) Surgical History: Tonsillectomy Family History: States: No Known Family Hx - Social History Hx Tobacco Use: No Hx Alcohol Use: No Hx Substance Use: No - Immunization History Hx Influenza Vaccination: Yes (2017) Review Of Systems Except As Marked, All Systems Reviewed And Found Negative. Constitutional: Negative for: Fever, Chills Cardiovascular: Positive for: Palpitations. Negative for: Chest Pain, Orthopnea , Edema Respiratory: Negative for: Shortness of Breath Gastrointestinal: Negative for: Nausea, Vomiting Musculoskeletal: Negative for: Neck Pain, Back Pain Neurological: Positive for: Dizziness. Negative for: Weakness, Numbness Physical Exam - Physical Exam Appears: Non-toxic, No Acute Distress Skin: Normal Color, Warm, Dry, No Rash Head: Atraumatic, Normacephalic Eye(s): bilateral: Normal Inspection, PERRL Nose: Normal Oral Mucosa: Moist Lips: Normal Appearing Neck: Normal ROM Chest: Symmetrical Cardiovascular: Rhythm Irregular, No Murmur Respiratory: Normal Breath Sounds, No Accessory Muscle Use Gastrointestinal/Abdominal: Soft, No Tenderness Extremity: Normal ROM, No Pedal Edema, No Deformity, No Swelling Neurological/Psych: Oriented x3, Normal Speech ED Course And Treatment - Laboratory Results Result Diagrams: 06/23/17 17:46 06/23/17 17:46 ECG: Interpreted By Me, Viewed By Me ECG Rhythm: Atrial Fibrillation ECG Interpretation: No Acute Changes Rate From EC O2 Sat by Pulse Oximetry: 95 (RA) Pulse Ox Interpretation: Normal Medical Decision Making Medical Decision Making: Plan: * CT Head * EKG * Labs * Chest X-Ray * UA * Reassess and Disposition Reassess Case discussed with Dr redman, states to admit patient to his service for observation Disposition - Disposition Forms: [facility] [facility] (Welsh) - Scribe Statement The provider has reviewed the documentation as recorded by the Scribe (Renzo Ibarra) All medical record entries made by the Scribe were at my direction and personally dictated by me. I have reviewed the chart and agree that the record accurately reflects my personal performance of the history, physical exam, medical decision making, and the department course for this patient. I have also personally directed, reviewed, and agree with the discharge instructions and disposition.
[2017-06-23] MEDS ORDERED: Metoprolol 1 mg/ml Inj IVP STA (18:30)
[2017-06-23] MEDS ORDERED: Metoprolol 1 mg/ml Inj IVP ONE (18:36)
[2017-06-23 20:25] LABS: SQUAMOUS EPITHIAL 2 /hpf (0-5); URINE BACTERIA RARE (<OCC); URINE BILIRUBIN NEGATIVE (NEGATIVE); URINE BLOOD NEGATIVE (NEGATIVE); URINE CLARITY Clear (Clear); URINE COLOR Yellow (YELLOW); URINE GLUCOSE (UA) NORMAL (Normal); URINE LEUKOCYTE ESTERASE NEG Leu/uL (Negative); URINE NITRATE NEGATIVE (NEGATIVE); URINE PROTEIN 1+ mg/dL (NEGATIVE); URINE UROBILINOGEN NORMAL mg/dL (0.2-1.0)
--- NOTE | 2017-06-23 21:57 | CP.PCM.HP ---
History of Present Illness - History of Present Illness History of Present Illness: chief complaint: dizziness History of present illness: 81-year-old female with history of hypertension, hypercholesterolemia, osteoarthritis, atrial fibrillation, renal insufficiency came to the office with the complaining of dizziness. Patient was seen by me 3 days ago, at that time patient was found doing well, vital signs in the office was normal. Patient has atrial fibrillation, but controlled ventricular rate noted at that time. But today patient's daughter called me, c/o of sudden onset of dizziness started last night or this morning. I advised the patient to come to the office, in the office patient started having some dizzy episodes. She was waking up in the morning from bed, she felt the room spinning sensation , and associated with some nausea sensation. Pt is also having some unstable gait associated with tremor. Symptoms are increasingly noted now. Patient is also having increasing shaking in the bilateral hands. Patient was earlier diagnosed with new onset seizure activities, taking Keppra from last admission. She denies any chest pain no shortness of breath noted appetite noted. No leg swelling Because of the worsening symptoms in the office I advised her to go to the emergency room. Past medical history: Hypertension, high cholesterol, osteoarthritis, atrial fibrillation, renal insufficiency Allergies: No known drug allergies Personal history: ex smoker in the past, nonalcoholic. lives by herself Surgical history none Review of systems: Patient has no evidence of trauma But currently patient is somewhat sleepy drowsy. She had episodes of cough and cold, upper respiratory tract infection. Currently, and agitated at times. Vital signs reviewed elevated blood pressure noted, tachycardia noted. No neck vein distention noted Chest good air entry bilaterally, no wheezing or rales noted CVS regular heart sound, no murmur noted Abdomen soft, nontender. Extremities no pedal edema patient is awake and alert, no neurological deficit. Patient's labs revealed CAT scan of the head is nonspecific. X-ray chest nonspecific. Mild elevation of the proBNP noted Assessment and recognition: 80-year-old female with a history of hypertension, high cholesterol, osteoarthritis, atrial fibrillation. Came to the office with the dizziness. Patient also had a history of new onset seizure activities from last admission. Currently possibly has acute vertigo, most likely vestibular. Underlying brainstem, cerebellar infarct cannot be ruled out. We will get neurological evaluation. Currently patient is on anticoagulant medication. Rate control, blood pressure control will monitor the patient. Present on Admission - Present on Admission Any Indicators Present on Admission: No History of DVT/PE: No History of Uncontrolled Diabetes: No Urinary Catheter: No Decubitus Ulcer Present: No Past Patient History - Infectious Disease Hx of Infectious Diseases: None - Past Medical History & Family History Past Medical History?: Yes - Past Social History Smoking Status: Never Smoked - CARDIAC Hx Atrial Fibrillation: Yes (new onset ) Hx Hypercholesterolemia: Yes Hx Hypertension: Yes - PULMONARY Hx Respiratory Disorders: No - NEUROLOGICAL Hx Seizures: Yes (new onset) - HEENT Hx HEENT Problems: Yes Other/Comment: uses glasses - RENAL Hx Chronic Kidney Disease: Yes - ENDOCRINE/METABOLIC Hx Endocrine Disorders: No - HEMATOLOGICAL/ONCOLOGICAL Hx Blood Disorders: No - INTEGUMENTARY Hx Dermatological Problems: No - MUSCULOSKELETAL/RHEUMATOLOGICAL Hx Arthritis: Yes (OA) Hx Osteoporosis: Yes - GASTROINTESTINAL Hx Gastrointestinal Disorders: No - GENITOURINARY/GYNECOLOGICAL Hx Genitourinary Disorders: No - PSYCHIATRIC Hx Substance Use: No - SURGICAL HISTORY Hx Tonsillectomy: Yes - ANESTHESIA Hx Anesthesia: Yes Hx Anesthesia Reactions: No Meds Allergies/Adverse Reactions: Allergies Allergy/AdvReac Type Severity Reaction Status Date / Time No Known Allergies Allergy Verified 06/23/17 16:39 Results - Vital Signs Recent Vital Signs: Last Vital Signs Temp 98.3 F 06/23/17 21:08 Pulse 103 H 06/23/17 21:08 Resp 18 06/23/17 21:08 BP 172/90 H 06/23/17 21:08 Pulse Ox 97 06/23/17 21:08 - Labs Result Diagrams: 06/23/17 17:46 06/23/17 17:46 Labs: Laboratory Results - last 24 hr 06/23/17 06/23/17 06/23/17 17:46 17:46 17:46 WBC 7.5 RBC 4.38 Hgb 11.7 Hct 36.3 MCV 82.9 MCH 26.8 L MCHC 32.3 L RDW 17.7 H Plt Count 230 MPV 8.8 Neut % (Auto) 75.9 H Lymph % (Auto) 15.4 L [place] % (Auto) 6.9 Eos % (Auto) 0.7 Baso % (Auto) 1.1 Neut # (Auto) 5.7 Lymph # (Auto) 1.2 [place] # (Auto) 0.5 Eos # (Auto) 0.1 Baso # (Auto) 0.1 PT 13.5 H INR 1.2 APTT 33 Sodium 140 Potassium 3.9 Chloride 101 Carbon Dioxide 29 Anion Gap 14 BUN 19 H Creatinine 1.0 Est GFR ( Amer) > 60 Est GFR (Non-Af Amer) 53 Random Glucose 103 Calcium 10.3 Total Bilirubin 0.6 AST 34 ALT 28 Alkaline Phosphatase 102 Total Creatine Kinase 45 CK-MB (Mass) 1.08 Troponin I 0.0230 NT-Pro-B Natriuret Pep 939 H Total Protein 7.3 Albumin 4.0 Globulin 3.3 Albumin/Globulin Ratio 1.2 Urine Color Urine Clarity Urine pH Ur Specific [place] Urine Protein Urine Glucose (UA) Urine Ketones Urine Blood Urine Nitrate Urine Bilirubin Urine Urobilinogen Ur Leukocyte Esterase Urine WBC (Auto) Urine RBC (Auto) Ur Squamous Epith Cells Ur Transition Epith Cell Urine Bacteria 06/23/17 20:16 WBC RBC Hgb Hct MCV MCH MCHC RDW Plt Count MPV Neut % (Auto) Lymph % (Auto) [place] % (Auto) Eos % (Auto) Baso % (Auto) Neut # (Auto) Lymph # (Auto) [place] # (Auto) Eos # (Auto) Baso # (Auto) PT INR APTT Sodium Potassium Chloride Carbon Dioxide Anion Gap BUN Creatinine Est GFR ( Amer) Est GFR (Non-Af Amer) Random Glucose Calcium Total Bilirubin AST ALT Alkaline Phosphatase Total Creatine Kinase CK-MB (Mass) Troponin I NT-Pro-B Natriuret Pep Total Protein Albumin Globulin Albumin/Globulin Ratio Urine Color Yellow Urine Clarity Clear Urine pH 6.0 Ur Specific [place] 1.014 Urine Protein 1+ H Urine Glucose (UA) Normal Urine Ketones Negative Urine Blood Negative Urine Nitrate Negative Urine Bilirubin Negative Urine Urobilinogen Normal Ur Leukocyte Esterase Neg Urine WBC (Auto) 2 Urine RBC (Auto) < 1 Ur Squamous Epith Cells 2 Ur Transition Epith Cell < 1 Urine Bacteria Rare
--- NOTE | 2017-06-24 08:53 | RAD ---
PROCEDURE: CHEST RADIOGRAPH, 1 VIEW HISTORY: SOB COMPARISON: Comparison is made with 05/15/2017 FINDINGS: LUNGS: No evidence of infiltrate or consolidation in the lungs. Interval resolving of the previously seen pulmonary venous congestion in the previous exam. PLEURA: No pneumothorax or pleural fluid seen. CARDIOVASCULAR: Normal. OSSEOUS STRUCTURES: No significant abnormalities. VISUALIZED UPPER ABDOMEN: Normal. OTHER FINDINGS: None. IMPRESSION: No active disease.
[2017-06-24 09:30] LABS: MAGNESIUM 1.8 mg/dL (1.6-2.3)
[2017-06-24 10:18] LABS: FREE T4 1.18 ng/dL (0.78-2.19)
[2017-06-24] MEDS: Lactobacillus Acidophilus 500 MU Cap PO SCH ×2 (10:55→18:55)
--- NOTE | 2017-06-24 12:47 | CP.PCM.PN ---
Subjective - Date & Time of Evaluation Date of Evaluation: 06/24/17 Time of Evaluation: 12:45 - Subjective Subjective: Patient today morning feeling better. She was able to sleep last night. The tremor in the arms improving. Patient was able to go to the bathroom. Able to stand up. The dizziness is improving. Better than yesterday. Heart rate and blood pressure is controlled well On examination: Chest good air entry bilaterally regular heart sound pedal edema negative Patient labs reviewed Nonspecific. CT scan of the brain nonspecific Assessment and recommendation: 81 female admitted with the dizziness. Patient with history of atrial fibrillation and hypertension. Uncontrolled hypertension and atrial fibrillation with rapid ventricular rate noted. Concerned about the base labs posterior cerebral circulation problems. But the patient is on anticoagulation. No bleeding noted. Will repeat the CAT scan, patient is not willing to have MRI. And will follow the patient Physical therapy advised, ossible discharge planning the morning Objective - Vital Signs/Intake and Output Vital Signs (last 24 hours): Temp Pulse Resp BP Pulse Ox 98.4 F 83 20 128/82 95 06/24/17 00:35 06/24/17 07:30 06/24/17 00:35 06/24/17 00:35 06/24/17 00:35 Intake and Output: 06/24/17 06/24/17 06:59 18:59 Intake Total 250 Balance 250 - Medications Medications: Current Medications Apixaban (Eliquis) 5 mg PO BID [facility] Last Admin: 06/24/17 10:55 Dose: 5 mg Diltiazem HCl (Cardizem) 30 mg PO QID [facility] Last Admin: 06/24/17 10:55 Dose: 30 mg Docusate Sodium (Colace) 100 mg PO BID [facility] Last Admin: 06/24/17 10:55 Dose: 100 mg Famotidine (Pepcid) 20 mg PO BID [facility] Last Admin: 06/24/17 10:55 Dose: 20 mg Lactobacillus Acidophilus (Bacid Acidophilus) 1 cap PO BID [facility] Last Admin: 06/24/17 10:55 Dose: 1 cap Levetiracetam (Keppra) 500 mg PO BID [facility] Last Admin: 06/24/17 10:55 Dose: 500 mg Metoprolol Tartrate (Lopressor) 50 mg PO BID [facility] Last Admin: 06/24/17 10:55 Dose: 50 mg Rosuvastatin Calcium (Crestor) 10 mg PO HS [facility] Last Admin: 06/23/17 21:46 Dose: 10 mg - Labs Labs: 06/23/17 17:46 06/23/17 17:46 PT 13.5 SECONDS (9.7-12.2) H 06/23/17 17:46 INR 1.2 06/23/17 17:46 APTT 33 SECONDS (21-34) 06/23/17 17:46
--- NOTE | 2017-06-24 14:09 | CP.PCM.CON ---
History of Present Illness - History of Present Illness History of Present Illness: CONSULT DICTATED EPISODE OF VBI - RESOLVED BACK TO HER BASE LINE CONTINUE THE PRESENT MANAGEMENT NO MRI IS NEEDED IF SHE IS STABLE MEDICALLY CAN BE D/MATT HOME AND FOLLOW UP AN OP Past Patient History - Infectious Disease Hx of Infectious Diseases: None - Past Medical History & Family History Past Medical History?: Yes - Past Social History Smoking Status: Never Smoked - CARDIAC Hx Atrial Fibrillation: Yes (new onset ) Hx Hypercholesterolemia: Yes Hx Hypertension: Yes - PULMONARY Hx Respiratory Disorders: No - NEUROLOGICAL Hx Seizures: Yes (new onset) - HEENT Hx HEENT Problems: Yes Other/Comment: uses glasses - RENAL Hx Chronic Kidney Disease: Yes - ENDOCRINE/METABOLIC Hx Endocrine Disorders: No - HEMATOLOGICAL/ONCOLOGICAL Hx Blood Disorders: No - INTEGUMENTARY Hx Dermatological Problems: No - MUSCULOSKELETAL/RHEUMATOLOGICAL Hx Arthritis: Yes (OA) Hx Osteoporosis: Yes - GASTROINTESTINAL Hx Gastrointestinal Disorders: No - GENITOURINARY/GYNECOLOGICAL Hx Genitourinary Disorders: No - PSYCHIATRIC Hx Substance Use: No - SURGICAL HISTORY Hx Tonsillectomy: Yes - ANESTHESIA Hx Anesthesia: Yes Hx Anesthesia Reactions: No Meds Allergies/Adverse Reactions: Allergies Allergy/AdvReac Type Severity Reaction Status Date / Time No Known Allergies Allergy Verified 06/23/17 16:39 - Medications Medications: Current Medications Apixaban (Eliquis) 5 mg PO BID [facility] Last Admin: 06/24/17 10:55 Dose: 5 mg Diltiazem HCl (Cardizem) 30 mg PO QID [facility] Last Admin: 06/24/17 10:55 Dose: 30 mg Docusate Sodium (Colace) 100 mg PO BID [facility] Last Admin: 06/24/17 10:55 Dose: 100 mg Famotidine (Pepcid) 20 mg PO BID [facility] Last Admin: 06/24/17 10:55 Dose: 20 mg Lactobacillus Acidophilus (Bacid Acidophilus) 1 cap PO BID [facility] Last Admin: 06/24/17 10:55 Dose: 1 cap Levetiracetam (Keppra) 500 mg PO BID [facility] Last Admin: 06/24/17 10:55 Dose: 500 mg Metoprolol Tartrate (Lopressor) 50 mg PO BID [facility] Last Admin: 06/24/17 10:55 Dose: 50 mg Rosuvastatin Calcium (Crestor) 10 mg PO HS [facility] Last Admin: 06/23/17 21:46 Dose: 10 mg Results - Vital Signs Recent Vital Signs: Last Vital Signs Temp 98.4 F 06/24/17 00:35 Pulse 83 06/24/17 07:30 Resp 20 06/24/17 00:35 BP 128/82 06/24/17 00:35 Pulse Ox 95 06/24/17 00:35 - Labs Result Diagrams: 06/23/17 17:46 06/23/17 17:46 Labs: Laboratory Results - last 24 hr 06/23/17 06/23/17 06/23/17 17:46 17:46 17:46 WBC 7.5 RBC 4.38 Hgb 11.7 Hct 36.3 MCV 82.9 MCH 26.8 L MCHC 32.3 L RDW 17.7 H Plt Count 230 MPV 8.8 Neut % (Auto) 75.9 H Lymph % (Auto) 15.4 L [place] % (Auto) 6.9 Eos % (Auto) 0.7 Baso % (Auto) 1.1 Neut # (Auto) 5.7 Lymph # (Auto) 1.2 [place] # (Auto) 0.5 Eos # (Auto) 0.1 Baso # (Auto) 0.1 PT 13.5 H INR 1.2 APTT 33 Sodium 140 Potassium 3.9 Chloride 101 Carbon Dioxide 29 Anion Gap 14 BUN 19 H Creatinine 1.0 Est GFR ( Amer) > 60 Est GFR (Non-Af Amer) 53 Random Glucose 103 Calcium 10.3 Phosphorus Magnesium Total Bilirubin 0.6 AST 34 ALT 28 Alkaline Phosphatase 102 Total Creatine Kinase 45 CK-MB (Mass) 1.08 Troponin I 0.0230 NT-Pro-B Natriuret Pep 939 H Total Protein 7.3 Albumin 4.0 Globulin 3.3 Albumin/Globulin Ratio 1.2 Free T4 TSH 3rd Generation Urine Color Urine Clarity Urine pH Ur Specific [place] Urine Protein Urine Glucose (UA) Urine Ketones Urine Blood Urine Nitrate Urine Bilirubin Urine Urobilinogen Ur Leukocyte Esterase Urine WBC (Auto) Urine RBC (Auto) Ur Squamous Epith Cells Ur Transition Epith Cell Urine Bacteria 06/23/17 06/24/17 06/24/17 20:16 09:09 09:09 WBC RBC Hgb Hct MCV MCH MCHC RDW Plt Count MPV Neut % (Auto) Lymph % (Auto) [place] % (Auto) Eos % (Auto) Baso % (Auto) Neut # (Auto) Lymph # (Auto) [place] # (Auto) Eos # (Auto) Baso # (Auto) PT INR APTT Sodium Potassium Chloride Carbon Dioxide Anion Gap BUN Creatinine Est GFR ( Amer) Est GFR (Non-Af Amer) Random Glucose Calcium Phosphorus 3.4 Magnesium 1.8 Total Bilirubin AST ALT Alkaline Phosphatase Total Creatine Kinase CK-MB (Mass) Troponin I NT-Pro-B Natriuret Pep Total Protein Albumin Globulin Albumin/Globulin Ratio Free T4 1.18 TSH 3rd Generation 0.92 Urine Color Yellow Urine Clarity Clear Urine pH 6.0 Ur Specific [place] 1.014 Urine Protein 1+ H Urine Glucose (UA) Normal Urine Ketones Negative Urine Blood Negative Urine Nitrate Negative Urine Bilirubin Negative Urine Urobilinogen Normal Ur Leukocyte Esterase Neg Urine WBC (Auto) 2 Urine RBC (Auto) < 1 Ur Squamous Epith Cells 2 Ur Transition Epith Cell < 1 Urine Bacteria Rare
--- NOTE | 2017-06-24 22:33 | CON ---
DATE: NEUROLOGICAL CONSULTATION ATTENDING PHYSICIAN: Kolby Redman MD LOCATION: The patient is in room 565, bed B. REASON FOR CONSULTATION: Dizziness. CHIEF COMPLAINT: The patient was advised to come to the hospital by the primary care physician because of the abrupt onset of dizziness and nausea. From neurological point of view, I was called into evaluate her for further management. HISTORY OF PRESENT ILLNESS: Ms. Emely Goldstein is an 81-year-old, right-handed, pleasant, female, usual state of health, who is known to me from her previous hospitalization, has been admitted with history of unresponsiveness and workup showed PRES as per the MRI, it has been resolved completely, sent home, presenting with abrupt onset of vertigo associating with nausea. This episode lasted for about few hours and resolved by itself. At present, she denies any new complaints. No nausea. No vomiting. No visual or bulbar dysfunction. No subjective vertiginous feeling. PAST MEDICAL HISTORY: Hypertension, atrial fibrillation, hypoperfusion syndrome, seizures. ALLERGIES: NO KNOWN ALLERGIES. PERSONAL HISTORY: Denies smoking or alcohol use. REVIEW OF SYSTEMS: A 12-point system has been reviewed. From neuro, recurrent dizziness. MEDICATIONS: Diltiazem, Colace, Crestor, Eliquis, Keppra, Lopressor and Pepcid. PHYSICAL EXAMINATION: VITAL SIGNS: Blood pressure 128/82, mean artery pressure of 97, respiratory rate is 16, temperature 98.4, pulse rate 83. NECK: Supple. No carotid bruits. HEART: Sounds irregular. EXTREMITIES: No edema in legs. NEUROLOGIC EXAMINATION/MENTAL STATUS EXAMINATION: She is awake, alert, oriented to person, place and time. Speech is clear, naming, repetition, fluency, and comprehension all within normal. CRANIAL NERVE EXAMINATION: Visual field intact. Pupils are reactive to light. Extraocular movement decreased in all direction. No facial sensory deficit. No facial asymmetry. Hearing is normal. Tongue is midline. Good gag. MOTOR EXAMINATION: Outstretched hand with eyes closed, no drift noted. Power is symmetric on either side. Deep tendon reflexes are hyperreflexic in the upper extremities, lower extremities are absent. Plantars are downgoing. SENSORY EXAMINATION: Responds to pain symmetrically on both sides. COORDINATION: Mild dysmetria on the finger-nose testing. Gait is deferred at this time. She ambulates with use of walker. WORKUP: CT of the head reviewed showed periventricular ischemic changes with mild atrophy. No acute process is noted. Blood workup, WBC 7.5, hemoglobin 11.7, hematocrit 36.3, and platelet 230. PT 13.5, INR 1.2, PTT 33. Sodium 140, potassium 3.9, chloride 101, bicarbonate 29, BUN 19, creatinine 1.0, GFR more than 53. BNP 939. Liver functions are normal. Phosphorus 3.4, calcium 10.3, magnesium 1.8, TSH 0.92. Urinalysis shows 1+ proteinuria. CONCLUSION: As per neurological examination, Ms. Emely Goldstein presenting with vertebrobasilar insufficiency, which has been completely resolved at present. 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 If the patient is stable for next 24-hour period, the patient can be discharged and should have a followup visit as an outpatient. Continue DVT prophylaxis and physical therapy for now. The patient's condition has been discussed, she agreed with our plan of management. The patient will be followed while she is in the hospital. Sloan Del Toro MD
[2017-06-25] MEDS: Lactobacillus Acidophilus 500 MU Cap PO SCH ×2 (10:09→17:41)
[2017-06-25 17:58] VITALS: RESP 20
--- NOTE | 2017-06-25 18:19 | PN ---
DATE: 06/25/2017 TIME OF EVALUATION: 1:10 p.m. NEUROLOGICAL PROBLEM: Possible vestibular neuropathy versus vertebrobasilar insufficiency-resolved. PHYSICAL EXAMINATION: VITAL SIGNS: Blood pressure 121/73, mean artery pressure of 91, respiratory rate 16, temperature 97.9, pulse rate 85. NEUROLOGIC: The patient is more awake, alert, and oriented to person, place, and time. She is sitting independently and doing her work. Speech is clear. Moves all four extremities. Her appetite is regained back. She had a normal appetite now and she had eaten regular hospital food with no complaints. She denies any new complaints ever since she was admitted. The patient does not need any further workup. The patient will continue present management. The patient will be followed closely with you while she is in the hospital. Sloan Del Toro MD
--- NOTE | 2017-06-25 19:11 | CP.PCM.PN ---
Subjective - Date & Time of Evaluation Date of Evaluation: 06/25/17 Time of Evaluation: 19:11 - Subjective Subjective: Patient is sitting up on the chair. No chest pain or shortness of breath noted. She is feeling much better. Minimal tremor noted. Examination: Vital sensitivity Blood pressure and heart rate is controlled well. I spoke to the patient's son also. Chest good air entry irregular most of her nontender abdomen no pedal edema Assessment and condition: 81 female admitted with dizziness, less likely posterior circulation infarct. Cleared by neurologist, seen by a neurologist. Patient is currently having controlled her heart rate with atrial fibrillation. We will continue the physical therapy. EKG ordered, if the EEG negative by tomorrow patient can be discharged home. We' ll follow-up the patient Objective - Vital Signs/Intake and Output Vital Signs (last 24 hours): Temp Pulse Resp BP Pulse Ox 97.8 F 84 20 153/77 H 97 06/25/17 16:00 06/25/17 16:00 06/25/17 16:00 06/25/17 16:00 06/25/17 16:00 - Medications Medications: Current Medications Apixaban (Eliquis) 5 mg PO BID [facility] Last Admin: 06/25/17 17:42 Dose: 5 mg Diltiazem HCl (Cardizem) 30 mg PO QID [facility] Last Admin: 06/25/17 17:41 Dose: 30 mg Docusate Sodium (Colace) 100 mg PO BID [facility] Last Admin: 06/25/17 17:41 Dose: 100 mg Famotidine (Pepcid) 20 mg PO BID [facility] Last Admin: 06/25/17 17:42 Dose: 20 mg Lactobacillus Acidophilus (Bacid Acidophilus) 1 cap PO BID [facility] Last Admin: 06/25/17 17:41 Dose: 1 cap Levetiracetam (Keppra) 500 mg PO BID [facility] Last Admin: 06/25/17 17:42 Dose: 500 mg Metoprolol Tartrate (Lopressor) 50 mg PO BID [facility] Last Admin: 06/25/17 17:42 Dose: 50 mg Rosuvastatin Calcium (Crestor) 10 mg PO HS [facility] Last Admin: 06/24/17 23:45 Dose: 10 mg - Labs Labs: 06/23/17 17:46 06/23/17 17:46 PT 13.5 SECONDS (9.7-12.2) H 06/23/17 17:46 INR 1.2 06/23/17 17:46 APTT 33 SECONDS (21-34) 06/23/17 17:46
[2017-06-26 07:36] VITALS: TEMP 97.5; O2SAT 97
--- NOTE | 2017-06-26 08:13 | PN ---
DATE: 06/26/2017 TIME OF EVALUATION: 6.30 a.m. 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 PHYSICAL EXAMINATION: VITAL SIGNS: Blood pressure 124/78, mean artery pressure of 93, respiratory rate 16, temperature 97.9. The patient is lying comfortably in the bed. Speech is clear. No focal weakness. Extraocular movement normal. Visual field is intact. Deep tendon reflexes are absent. Plantars are mute. The patient is stable close to 48-hour period. No further progression of neurological status. Continue the present management. The patient can be discharged if medically stable, and should have a followup visit with me as outpatient. Sloan Del Toro MD 06/26/2017<
--- NOTE | 2017-06-26 08:31 | CP.PCM.PN ---
Subjective - Date & Time of Evaluation Date of Evaluation: 06/26/17 Time of Evaluation: 08:30 - Subjective Subjective: Patient is currently getting the EEG. Comfortable. Not in any distress. Cemented neurologist at this morning, clear to On examination: Vital signs good. Chest good air entry regular hospital nontender abdomen. Edema negative Assessment and recommendation: 81-year-old female admitted to the hospital because of dizziness. Nonspecific. Possible vertigo. atrial fibrillation with rapid ventricular rate, currently controlled well. Uncontrolled blood pressure. Stable. On anticoagulation. We'll discuss with the family today, possible discharge plan today. Objective - Vital Signs/Intake and Output Vital Signs (last 24 hours): Temp Pulse Resp BP Pulse Ox 97.5 F L 70 20 155/81 H 97 06/26/17 07:34 06/26/17 07:34 06/26/17 07:34 06/26/17 07:34 06/26/17 07:34 - Medications Medications: Current Medications Apixaban (Eliquis) 5 mg PO BID [facility] Last Admin: 06/25/17 17:42 Dose: 5 mg Diltiazem HCl (Cardizem) 30 mg PO QID [facility] Last Admin: 06/25/17 21:54 Dose: 30 mg Docusate Sodium (Colace) 100 mg PO BID [facility] Last Admin: 06/25/17 17:41 Dose: 100 mg Famotidine (Pepcid) 20 mg PO BID [facility] Last Admin: 06/25/17 17:42 Dose: 20 mg Lactobacillus Acidophilus (Bacid Acidophilus) 1 cap PO BID [facility] Last Admin: 06/25/17 17:41 Dose: 1 cap Levetiracetam (Keppra) 500 mg PO BID [facility] Last Admin: 06/25/17 17:42 Dose: 500 mg Metoprolol Tartrate (Lopressor) 50 mg PO BID [facility] Last Admin: 06/25/17 17:42 Dose: 50 mg Rosuvastatin Calcium (Crestor) 10 mg PO HS [facility] Last Admin: 06/25/17 21:54 Dose: 10 mg - Labs Labs: 06/23/17 17:46 06/23/17 17:46 PT 13.5 SECONDS (9.7-12.2) H 06/23/17 17:46 INR 1.2 06/23/17 17:46 APTT 33 SECONDS (21-34) 06/23/17 17:46
[2017-06-26] MEDS: Lactobacillus Acidophilus 500 MU Cap PO SCH (09:14)
[2017-06-26 09:17] VITALS: BP 140/85; PULSE 84
[2017-06-26] MEDS ORDERED: diltiaZEM 180 mg/24 Hours CD Cap PO SCH (10:00)
[2017-06-26] MEDS ORDERED: Pneumococcal 23-Valent Vaccine IM ONE (10:00)
[2017-06-26] MEDS ORDERED: Metoprolol Succinate 50 mg XL Tab PO SCH (10:00)
[2017-06-26 12:21] LABS: BASO # 0.1 K/uL (0.0-0.2); BASO % 1.3 % (0.0-2.0); EOS # 0.2 K/uL (0.0-0.7); EOS % 3.7 % (0.0-4.0); HEMOGLOBIN 11.4 g/dL (11.0-16.0); LYMPH % 19.9 % (20.0-40.0); MEAN CELL VOLUME 83.1 fL (81.0-99.0); MEAN CORPUSCULAR HEMOGLOBIN 27.1 pg (27.0-31.0); MEAN CORPUSCULAR HGB CONC 32.7 g/dL (33.0-37.0); MEAN PLATELET VOLUME 9.2 fL (7.2-11.7); MONO # 0.4 K/uL (0.0-0.8); MONO % 7.6 % (0.0-10.0); NEUT # 3.5 K/uL (1.8-7.0); NEUT % 67.5 % (50.0-75.0); RBC 4.2 Mil/uL (3.80-5.20); RED CELL DISTRIBUTION WIDTH 17.2 % (11.5-14.5); WHITE BLOOD COUNT 5.1 K/uL (4.8-10.8)
[2017-06-26 12:23] LABS: ALB/GLOB RATIO 1.1 (1.0-2.1); ALBUMIN 3.6 g/dL (3.5-5.0); CALCIUM 9.5 mg/dl (8.6-10.4)
--- NOTE | 2017-06-26 12:34 | CARD ---
APPROVED REPORT EKG Measurement Heart [id number] <Conclusion> Atrial fibrillation with rapid ventricular response Abnormal ECG
--- NOTE | 2017-06-26 14:51 | CP.PCM.DIS ---
Provider - Provider Date of Admission: 06/23/17 18:31 Attending physician: Kolby Redman MD Time Spent in preparation of Discharge (in minutes): 45 Hospital Course - Lab Results Lab Results: Most Recent Lab Values WBC 5.1 K/uL (4.8-10.8) 06/26/17 11:49 RBC 4.20 Mil/uL (3.80-5.20) 06/26/17 11:49 Hgb 11.4 g/dL (11.0-16.0) 06/26/17 11:49 Hct 34.9 % (34.0-47.0) 06/26/17 11:49 MCV 83.1 fL (81.0-99.0) 06/26/17 11:49 MCH 27.1 pg (27.0-31.0) 06/26/17 11:49 MCHC 32.7 g/dL (33.0-37.0) L 06/26/17 11:49 RDW 17.2 % (11.5-14.5) H 06/26/17 11:49 Plt Count 220 K/uL (130-400) 06/26/17 11:49 MPV 9.2 fL (7.2-11.7) 06/26/17 11:49 Neut % (Auto) 67.5 % (50.0-75.0) 06/26/17 11:49 Lymph % (Auto) 19.9 % (20.0-40.0) L 06/26/17 11:49 [place] % (Auto) 7.6 % (0.0-10.0) 06/26/17 11:49 Eos % (Auto) 3.7 % (0.0-4.0) 06/26/17 11:49 Baso % (Auto) 1.3 % (0.0-2.0) 06/26/17 11:49 Neut # (Auto) 3.5 K/uL (1.8-7.0) 06/26/17 11:49 Lymph # (Auto) 1.0 K/uL (1.0-4.3) 06/26/17 11:49 [place] # (Auto) 0.4 K/uL (0.0-0.8) 06/26/17 11:49 Eos # (Auto) 0.2 K/uL (0.0-0.7) 06/26/17 11:49 Baso # (Auto) 0.1 K/uL (0.0-0.2) 06/26/17 11:49 PT 13.5 SECONDS (9.7-12.2) H 06/23/17 17:46 INR 1.2 06/23/17 17:46 APTT 33 SECONDS (21-34) 06/23/17 17:46 Sodium 137 mmol/L (132-148) 06/26/17 11:49 Potassium 3.7 mmol/L (3.6-5.2) 06/26/17 11:49 Chloride 101 mmol/L (98-107) 06/26/17 11:49 Carbon Dioxide 28 mmol/L (22-30) 06/26/17 11:49 Anion Gap 12 (10-20) 06/26/17 11:49 BUN 23 mg/dL (7-17) H 06/26/17 11:49 Creatinine 1.2 mg/dL (0.7-1.2) 06/26/17 11:49 Est GFR ( Amer) 52 06/26/17 11:49 Est GFR (Non-Af Amer) 43 06/26/17 11:49 Random Glucose 102 mg/dL (65-105) 06/26/17 11:49 Calcium 9.5 mg/dl (8.6-10.4) 06/26/17 11:49 Ionized Calcium 5.6 mg/dL (4.80-5.60) 06/24/17 09:09 Phosphorus 3.4 mg/dL (2.5-4.5) 06/24/17 09:09 Magnesium 1.8 mg/dL (1.6-2.3) 06/24/17 09:09 Total Bilirubin 0.4 mg/dL (0.2-1.3) 06/26/17 11:49 AST 37 U/L (14-36) H 06/26/17 11:49 ALT 41 U/L (9-52) 06/26/17 11:49 Alkaline Phosphatase 92 U/L (38-126) 06/26/17 11:49 Total Creatine Kinase 45 U/L (30-135) 06/23/17 17:46 CK-MB (Mass) 1.08 ng/mL (0.0-3.38) 06/23/17 17:46 Troponin I 0.0230 ng/mL (0.00-0.120) 06/23/17 17:46 NT-Pro-B Natriuret Pep 939 pg/mL (0-900) H 06/23/17 17:46 Total Protein 6.8 g/dL (6.3-8.3) 06/26/17 11:49 Albumin 3.6 g/dL (3.5-5.0) 06/26/17 11:49 Globulin 3.2 gm/dL (2.2-3.9) 06/26/17 11:49 Albumin/Globulin Ratio 1.1 (1.0-2.1) 06/26/17 11:49 Free T4 1.18 ng/dL (0.78-2.19) 06/24/17 09:09 TSH 3rd Generation 0.92 mIU/L (0.46-4.68) 06/24/17 09:09 Urine Color Yellow (YELLOW) 06/23/17 20:16 Urine Clarity Clear (Clear) 06/23/17 20:16 Urine pH 6.0 (5.0-8.0) 06/23/17 20:16 Ur Specific [place] 1.014 (1.003-1.030) 06/23/17 20:16 Urine Protein 1+ mg/dL (NEGATIVE) H 06/23/17 20:16 Urine Glucose (UA) Normal mg/dL (Normal) 06/23/17 20:16 Urine Ketones Negative mg/dL (NEGATIVE) 06/23/17 20:16 Urine Blood Negative (NEGATIVE) 06/23/17 20:16 Urine Nitrate Negative (NEGATIVE) 06/23/17 20:16 Urine Bilirubin Negative (NEGATIVE) 06/23/17 20:16 Urine Urobilinogen Normal mg/dL (0.2-1.0) 06/23/17 20:16 Ur Leukocyte Esterase Neg Monica/uL (Negative) 06/23/17 20:16 Urine WBC (Auto) 2 /hpf (0-5) 06/23/17 20:16 Urine RBC (Auto) < 1 /hpf (0-3) 06/23/17 20:16 Ur Squamous Epith Cells 2 /hpf (0-5) 06/23/17 20:16 Ur Transition Epith Cell < 1 /hpf (0-3) 06/23/17 20:16 Urine Bacteria Rare (<OCC) 06/23/17 20:16 - Hospital Course Hospital Course: History of present illness: 81-year-old female with history of hypertension, hypercholesterolemia, osteoarthritis, atrial fibrillation, renal insufficiency came to the office with the complaining of dizziness. Patient was seen by me 3 days ago, at that time patient was found doing well, vital signs in the office was normal. Patient has atrial fibrillation, but controlled ventricular rate noted at that time. But today patient's daughter called me, c/o of sudden onset of dizziness started last night or this morning. I advised the patient to come to the office, in the office patient started having some dizzy episodes. She was waking up in the morning from bed, she felt the room spinning sensation , and associated with some nausea sensation. Pt is also having some unstable gait associated with tremor. Symptoms are increasingly noted now. Patient is also having increasing shaking in the bilateral hands. Patient was earlier diagnosed with new onset seizure activities, taking Keppra from last admission. She denies any chest pain no shortness of breath noted appetite noted. No leg swelling Because of the worsening symptoms in the office I advised her to go to the emergency room. Past medical history: Hypertension, high cholesterol, osteoarthritis, atrial fibrillation, renal insufficiency Allergies: No known drug allergies Personal history: ex smoker in the past, nonalcoholic. lives by herself Surgical history none Review of systems: Patient has no evidence of trauma But currently patient is somewhat sleepy drowsy. She had episodes of cough and cold, upper respiratory tract infection. Currently, and agitated at times. Vital signs reviewed elevated blood pressure noted, tachycardia noted. No neck vein distention noted Chest good air entry bilaterally, no wheezing or rales noted CVS regular heart sound, no murmur noted Abdomen soft, nontender. Extremities no pedal edema patient is awake and alert, no neurological deficit. Patient's labs revealed CAT scan of the head is nonspecific. X-ray chest nonspecific. Mild elevation of the proBNP noted Assessment and recognition: 80-year-old female with a history of hypertension, high cholesterol, osteoarthritis, atrial fibrillation. Came to the office with the dizziness. Patient also had a history of new onset seizure activities from last admission. Currently possibly has acute vertigo, most likely vestibular. Underlying brainstem, cerebellar infarct cannot be ruled out. We will get neurological evaluation. Currently patient is on anticoagulant medication. Rate control, blood pressure control will monitor the patient. Course in the Hospital: Patient initially given meclizine in the emergency room, patient was noted to have a hypertensive, tachycardia. Patient was placed on telemetry monitoring. Neurologic evaluation was called. Patient at tremor was improving. Patient does not have any major active symptoms otherwise. Patient clearly improving in her overall condition. The heartbeat is controlled well. Blood pressure stable. Today patient was cleared by the neurologist. She had EEG done, I will get the report as an outpatient. The patient will continue the anticoagulation. She will continue metoprolol succinate 50 mg daily. She'll also continue Cardizem CD 180 mg daily. We'll continue the home physical therapy, and a home visiting nurse. I spoke to the patient's son in detail. Patient will be discharged home today. Follow-up in 1 week. Discharge Plan - Discharge Medications Prescriptions: diltiaZEM CD [Cardizem CD] 180 mg PO DAILY #30 cap Apixaban [Eliquis] 5 mg PO BID #60 tab Metoprolol Succinate [Toprol XL] 50 mg PO DAILY #30 tab - Follow Up Plan Condition: GOOD Disposition: HOME/ ROUTINE
== END 2017-06-26 16:15 | disposition home or self-care (01) ==
LOC: C.ER 15:46 → C.9E 18:31 → C.5S 19:40
PROVIDERS: ADMIT Internal Medicine; ATTEND Internal Medicine
DX: R42 Dizziness and giddiness (principal); I48.91 Unspecified atrial fibrillation; M81.0 Age-related osteoporosis without current pathological fracture; I12.9 Hypertensive chronic kidney disease with stage 1 through stage 4 chronic kidney disease, or unspecified chronic kidney disease; N18.9 Chronic kidney disease, unspecified; E78.00 Pure hypercholesterolemia, unspecified; R56.9 Unspecified convulsions; M19.90 Unspecified osteoarthritis, unspecified site; R25.1 Tremor, unspecified; Z87.891 Personal history of nicotine dependence; Z79.01 Long term (current) use of anticoagulants; G62.9 Polyneuropathy, unspecified
CPT/HCPCS: 36415; 70450; 71045; 80053; 81001; 82330; 82550; 82553; 83735; 83880; 84100; 84439; 84443; 84484; 85025; 85610; 85730; 93005; 95812; 96374; 97110; 97116; 97162; 99285; G0378; G8978; G8979